=== PATIENT | male | born 1945 | race Caucasian/White ===

== ENCOUNTER 2017-10-08 07:14 | Observation (INO) | payer MEDICARE ==
[2017-10-08] VITALS (19 sets, daily range): BP systolic 113–146; BP diastolic 61–93; PULSE 79–109; RESP 16–22; TEMP 98.1–99.4; O2SAT 95–100
[~2017-10-08] VITALS: Ht 188 cm; Wt 71.6 kg
[~2017-10-08 07:14] MED LIST: CYCL5TAB PO; PRED20 PO
[2017-10-08] MEDS ORDERED: IBUPROFEN 600 MG TAB PO ONE (07:45)
[2017-10-08] MEDS ORDERED: SODIUM CHLOR 0.9% 1000 ML INJ 1,000 ML IV ONE (07:45)
[2017-10-08 08:27] LABS: AUTOMATED NEUTROPHIL # 16.1 TH/MM3 (1.8-7.7); BASOPHIL % 0.1 % (0.0-2.0); HEMATOCRIT 49.8 % (39.0-51.0); HEMOGLOBIN 17.1 GM/DL (13.0-17.0); LYMPH % 6.2 % (9.0-44.0); LYMPHOCYTE # 1.1 TH/MM3 (1.0-4.8); MEAN CORPUSCULAR HEMOGLOBIN 31.3 PG (27.0-34.0); MEAN CORPUSCULAR HGB CONC 34.3 % (32.0-36.0); MEAN PLATELET VOLUME 9.9 FL (7.0-11.0); MONO % 3.8 % (0.0-8.0); MONOCYTE # 0.7 TH/MM3 (0-0.9); NEUT % 89.9 % (16.0-70.0); PLATELET COUNT 271 TH/MM3 (150-450); RED BLOOD COUNT 5.47 MIL/MM3 (4.50-5.90); RED CELL DISTRIBUTION WIDTH 13.1 % (11.6-17.2); WHITE BLOOD COUNT 17.9 TH/MM3 (4.0-11.0)
--- NOTE | 2017-10-08 08:29 | PD ---
HPI Chief Complaint: Cold / Flu Symptoms Time Seen by Provider: 07:44 Travel History International Travel<30 days: No Contact w/Intl Traveler<30days: No Traveled to known affect area: No History of Present Illness HPI This is a 72-year-old male with history of hypertension, previous head and neck cancer, presents today with complaints of body aches. Patient also reported nausea vomiting diarrhea over the last 3 days. He denies any fevers, chills. He does report a productive cough with what he describes as "dark" phlegm. There is no blood in his vomit or stool. The patient reports generalized aches. There are no other complaints at the time of my examination. PFSH Past Medical History Cancer: Yes (THROAT/ NO TX AT THIS TIME) High Cholesterol: Yes Chemotherapy: Yes Musculoskeletal: Yes (NECK AND SHOULDER PAIN) Immunizations Current: No Thyroid Disease: Yes Past Surgical History Abdominal Surgery: Yes ( INGUINAL HERNIOPLASTY 2002) Other Surgery: Yes (THROAT CA HAND) Social History Alcohol Use: No Tobacco Use: Yes Substance Use: Yes (THC DAILY) Allergies-Medications (Allergen,Severity, Reaction): Coded Allergies: No Known Allergies (Verified Adverse Reaction, Unknown, 10/08/17) Reported Meds & Prescriptions Reported Meds & Active Scripts Active No Active Prescriptions or Reported Medications Review of Systems Except as stated in HPI: all other systems reviewed are Neg General / Constitutional: No: Fever, Chills HENT: No: Headaches, Lightheadedness Cardiovascular: No: Chest Pain or Discomfort, Palpitations Respiratory: Positive: Cough, No: Shortness of Breath (Dark phlegm.), Wheezing Gastrointestinal: Positive: Nausea, Vomiting, Diarrhea, No: Abdominal Pain ( Diarrhea has slowed down over last 24 hours), Hematemesis, Hematochezia Genitourinary: Positive: Decreased Urinary Output, No: Dysuria Musculoskeletal: Positive: Weakness (Generalized), No: Pain Neurologic: Positive: Weakness (Generalized), No: Dizziness, Headache Physical Exam Narrative GENERAL: Thin appearing male in no acute respiratory distress. SKIN: Focused skin assessment warm/dry. No skin tenting noticed. HEAD: Atraumatic. Normocephalic. EYES: Pupils equal and round. No scleral icterus. No injection or drainage. ENT: No nasal bleeding or discharge. Mucous membranes pink and dry. NECK: Trachea midline. No JVD. Supple. CARDIOVASCULAR: Sinus tachycardia with a rate of 110. No murmur appreciated. RESPIRATORY: No accessory muscle use. Clear to auscultation. Breath sounds equal bilaterally. GASTROINTESTINAL: Abdomen soft, non-tender, nondistended. MUSCULOSKELETAL: No obvious deformities. No clubbing. No cyanosis. No edema. NEUROLOGICAL: Awake and alert. No obvious cranial nerve deficits. Motor grossly within normal limits. Normal speech. PSYCHIATRIC: Appropriate mood and affect; insight and judgment normal. Data Data Last Documented VS Vital Signs Date Time Temp Pulse Resp B/P (MAP) Pulse Ox O2 Delivery O2 Flow Rate FiO2 10/08/17 09:30 16 10/08/17 08:06 98.1 101 98 Room Air 10/08/17 07:26 113/61 (78) Orders Orders Electrocardiogram (10/08/17 07:44) Complete Blood Count With Diff (10/08/17 07:44) Comprehensive Metabolic Panel (10/08/17 07:44) Ckmb (Isoenzyme) Profile (10/08/17 07:44) Troponin I (10/08/17 07:44) Urinalysis - C+S If Indicated (10/08/17 07:44) Chest, Pa & Lat (10/08/17 07:44) Iv Access Insert/Monitor (10/08/17 07:44) Ecg Monitoring (10/08/17 07:44) Oximetry (10/08/17 07:44) Sodium Chlor 0.9% 1000 Ml Inj (Ns 1000 M (10/08/17 07:45) Ibuprofen (Motrin) (10/08/17 07:45) Influenzae A/B Antigen (10/08/17 07:44) CKMB (10/08/17 07:45) CKMB% (10/08/17 07:45) Sodium Chlor 0.9% 1000 Ml Inj (Ns 1000 M (10/08/17 10:00) Admit Order (Ed Use Only) (10/08/17 09:52) Labs Laboratory Tests Test 10/08/17 07:45 10/08/17 09:30 White Blood Count 17.9 TH/MM3 Red Blood Count 5.47 MIL/MM3 Hemoglobin 17.1 GM/DL Hematocrit 49.8 % Mean Corpuscular Volume 91.0 FL Mean Corpuscular Hemoglobin 31.3 PG Mean Corpuscular Hemoglobin Concent 34.3 % Red Cell Distribution Width 13.1 % Platelet Count 271 TH/MM3 Mean Platelet Volume 9.9 FL Neutrophils (%) (Auto) 89.9 % Lymphocytes (%) (Auto) 6.2 % Monocytes (%) (Auto) 3.8 % Eosinophils (%) (Auto) 0.0 % Basophils (%) (Auto) 0.1 % Neutrophils # (Auto) 16.1 TH/MM3 Lymphocytes # (Auto) 1.1 TH/MM3 Monocytes # (Auto) 0.7 TH/MM3 Eosinophils # (Auto) 0.0 TH/MM3 Basophils # (Auto) 0.0 TH/MM3 CBC Comment DIFF FINAL Differential Comment Blood Urea Nitrogen 33 MG/DL Creatinine 1.32 MG/DL Random Glucose 128 MG/DL Total Protein 7.6 GM/DL Albumin 4.3 GM/DL Calcium Level 9.0 MG/DL Alkaline Phosphatase 93 U/L Aspartate Amino Transf (AST/SGOT) 20 U/L Alanine Aminotransferase (ALT/SGPT) 26 U/L Total Bilirubin 0.8 MG/DL Sodium Level 137 MEQ/L Potassium Level 3.9 MEQ/L Chloride Level 99 MEQ/L Carbon Dioxide Level 23.7 MEQ/L Anion Gap 14 MEQ/L Estimat Glomerular Filtration Rate 54 ML/MIN Total Creatine Kinase 243 U/L Creatine Kinase MB 5.2 NG/ML Troponin I LESS THAN 0.02 NG/ML Urine Color YELLOW Urine Turbidity HAZY Urine pH 6.0 Urine Specific [place] 1.022 Urine Protein 30 mg/dL Urine Glucose (UA) NEG mg/dL Urine Ketones 40 mg/dL Urine Occult Blood SMALL Urine Nitrite NEG Urine Bilirubin NEG Urine Urobilinogen LESS THAN 2.0 MG/DL Urine Leukocyte Esterase NEG Urine RBC 5 /hpf Urine WBC 2 /hpf Urine Hyaline Casts 23 /lpf Urine Mucus FEW /lpf Microscopic Urinalysis Comment CULT NOT INDICATED MDM Medical Decision Making Medical Screen Exam Complete: Yes Emergency Medical Condition: Yes Differential Diagnosis Viral syndrome versus influenza versus gastroenteritis versus metabolic derangement Narrative Course 72-year-old male with a reported history of hypertension who is noncompliant with medication, previous head and neck cancer, who presents today with complaints of general malaise. Patient reports nausea vomiting diarrhea. Patient states he has body aches all over. Reports not feeling well for 3 days. Patient is noted to have acute kidney injury. Patient also has frequent PVCs noted on his 12-lead. He has been given 1 L IV fluid bolus. He still feels bad. Given this, I will admit him to the hospital. There is a call out to the [facility] hospitalist service. Diagnosis Primary Impression: Acute kidney injury Additional Impressions: Sinus tach with frequent PVCs Tobacco abuse History of head and neck cancer Admitting Information Admitting Physician Requests: Admit Scripts No Active Prescriptions or Reported Meds Juancarlos North MD October 08, 2017 08:29
[2017-10-08 08:44] LABS: ALBUMIN 4.3 GM/DL (3.4-5.0); ALT (GPT) 26 U/L (12-78); AST (GOT) 20 U/L (15-37); BICARBONATE 23.7 MEQ/L (21.0-32.0); BLOOD UREA NITROGEN 33 MG/DL (7-18); CHLORIDE 99 MEQ/L (98-107); CREATININE 1.32 MG/DL (0.60-1.30); GLOMERULAR FILTRATION RATE 54 ML/MIN (>89); GLUCOSE,RANDOM 128 MG/DL (74-106); SODIUM (NA) 137 MEQ/L (136-145)
--- NOTE | 2017-10-08 08:44 | RADRPT ---
EXAM DATE: 10/08/2017 8:40 AM EDT AGE/SEX: 72 years / Male INDICATIONS: Cough x 1 week. CLINICAL DATA: This is the patient's initial encounter. Patient reports that signs and symptoms have been present for 1 day and indicates a pain score of 5/10. MEDICAL/SURGICAL HISTORY: None. None. COMPARISON: No prior [facility] exams available for comparison. FINDINGS: PA and lateral views of the chest demonstrate the lungs to be hyperaerated without evidence of mass, infiltrate or effusion. The cardiomediastinal contours are unremarkable. Osseous structures are intac t. CONCLUSION: Hyperinflation which can be seen with COPD. No infiltrate. Electronically signed by: Chuckie Barrios MD 10/08/2017 8:43 AM EDT
[2017-10-08 08:47] LABS: ALKALINE PHOSPHATASE 93 U/L (45-117); TOTAL BILIRUBIN ADULT 0.8 MG/DL (0.2-1.0); TOTAL PROTEIN 7.6 GM/DL (6.4-8.2); TROPONIN I LESS THAN 0.02 NG/ML (0.02-0.05)
[2017-10-08 09:46] LABS: BILIRUBIN, URINE NEG (NEG); BLOOD, URINE SMALL (NEG); GLUCOSE,URINE NEG (NEG); HYALINE CAST, URINE 23 /lpf (RARE); KETONE, URINE 40 mg/dL (NEG); MUCUS URINE FEW /lpf (OCC); NITRITE,URINE NEG (NEG); URINE COLOR YELLOW (YELLW/STRAW); URINE LEUKOCYTE ESTERASE NEG (NEG)
[2017-10-08] MEDS ORDERED: SODIUM CHLOR 0.9% 1000 ML INJ 1,000 ML IV SCH (10:00)
[2017-10-08] MEDS ORDERED: D5-1/2 NS + KCL 20 MEQ INJ 1,000 ML IV SCH (11:06)
[2017-10-08] MEDS ORDERED: NALOXONE HCL 0.4 MG/ML AMP IV PUSH PRN (11:15)
[2017-10-08] MEDS ORDERED: MAGNESIUM HYDROXIDE SUSP 30 ML CUP PO PRN (11:15)
[2017-10-08] MEDS ORDERED: ACETAMINOPHEN 325 MG TAB PO PRN (11:15)
[2017-10-08] MEDS ORDERED: ACETAMINOPHEN/HYDROcodone 325 MG/5 MG TAB PO PRN (11:15)
[2017-10-08] MEDS ORDERED: SENNOSIDES 8.6 MG TAB PO PRN (11:15)
[2017-10-08] MEDS ORDERED: MORPHINE SULFATE 2 MG/ML SYRINGE IV PUSH PRN (11:15)
[2017-10-08] MEDS ORDERED: ONDANSETRON ODT 4 MG TAB PO PRN (12:00)
[2017-10-08] MEDS: HEPARIN SODIUM - SQ 10,000 UNITS/ML VIAL SQ SCH ×2 (12:50→20:14)
[2017-10-08] MEDS: ACETAMINOPHEN/HYDROcodone 325 MG/7.5 MG TAB PO PRN (13:07)
[2017-10-08] MEDS: LEVOFLOXACIN 500 MG PREMIX INJ 100 ML IV SCH (14:35)
[2017-10-08] MEDS: POTASSIUM CHLORIDE INJ 10 MEQ in SODIUM CHLOR 0.9% 1000 ML INJ 1,000 ML IV SCH ×2 (14:35→23:33)
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
[2017-10-08] MEDS: DOCUSATE SODIUM 50 MG/SENNA 8.6 MG TAB PO SCH (20:16)
[2017-10-08] MEDS ORDERED: TEMAZEPAM 7.5 MG CAP PO ONE (23:15)
[2017-10-09] VITALS (18 sets, daily range): BP systolic 98–217; BP diastolic 67–128; PULSE 78–109; RESP 18–20; TEMP 98–98.7; O2SAT 95–98
[2017-10-09] MEDS: HEPARIN SODIUM - SQ 10,000 UNITS/ML VIAL SQ SCH ×2 (04:01→13:05)
[2017-10-09] MEDS: ACETAMINOPHEN/HYDROcodone 325 MG/7.5 MG TAB PO PRN (04:12)
[2017-10-09] MEDS ORDERED: MORPHINE SULFATE 4 MG/ML INJ IV PUSH PRN (04:30)
[2017-10-09] MEDS ORDERED: MORPHINE SULFATE 4 MG/ML INJ IV ONE (05:00)
[2017-10-09 06:50] LABS: BASOPHIL % 0.4 % (0.0-2.0); EOSINOPHIL % 0.2 % (0.0-4.0); HEMATOCRIT 48.1 % (39.0-51.0); HEMOGLOBIN 16.5 GM/DL (13.0-17.0); LYMPH % 10.6 % (9.0-44.0); LYMPHOCYTE # 1.2 TH/MM3 (1.0-4.8); MEAN CELL VOLUME 91.3 FL (80.0-100.0); MEAN CORPUSCULAR HEMOGLOBIN 31.3 PG (27.0-34.0); MEAN CORPUSCULAR HGB CONC 34.3 % (32.0-36.0); MEAN PLATELET VOLUME 9.6 FL (7.0-11.0); MONO % 6.8 % (0.0-8.0); MONOCYTE # 0.7 TH/MM3 (0-0.9); PLATELET COUNT 183 TH/MM3 (150-450); RED BLOOD COUNT 5.27 MIL/MM3 (4.50-5.90); RED CELL DISTRIBUTION WIDTH 13.2 % (11.6-17.2); WHITE BLOOD COUNT 10.9 TH/MM3 (4.0-11.0)
[2017-10-09] MEDS: POTASSIUM CHLORIDE INJ 10 MEQ in SODIUM CHLOR 0.9% 1000 ML INJ 1,000 ML IV SCH (07:17)
[2017-10-09 07:34] LABS: ALBUMIN 3.8 GM/DL (3.4-5.0); BICARBONATE 21.8 MEQ/L (21.0-32.0); CALCIUM 8.1 MG/DL (8.5-10.1); CREATININE 0.73 MG/DL (0.60-1.30); DIRECT BILIRUBIN ADULT 0.2 MG/DL (0.0-0.2); INDIRECT BILIRUBIN 0.8 MG/DL (0.0-0.8); TOTAL PROTEIN 6.8 GM/DL (6.4-8.2)
--- NOTE | 2017-10-09 08:28 | EKG ---
Date Performed: 10/08/2017 Time Performed: 08:32:23 PTAGE: 72 years EKG: Sinus rhythm WITH FREQUENT VENTRICULAR PREMATURE COMPLEXES POSSIBLE RIGHT ATRIAL ENLARGEMENT LEFT ATRIAL ENLARGEM ENT ABNORMAL ECG PREVIOUS TRACING : 12/07/2006 11.49 DOCTOR: John Al Interpretating Date/Time 10/09/2017 08:28:08
[2017-10-09] MEDS ORDERED: SODIUM CHLOR 0.9% 1000 ML INJ 1,000 ML IV SCH (08:30)
[2017-10-09] MEDS ORDERED: POTASSIUM CHLORIDE 25 MEQ EFFERVESCENT TAB PO ONE (08:30)
[2017-10-09] MEDS ORDERED: cloNIDine HCL 0.1 MG TAB PO PRN (08:45)
[2017-10-09] MEDS: DOCUSATE SODIUM 50 MG/SENNA 8.6 MG TAB PO SCH (08:53)
--- NOTE | 2017-10-09 08:55 | PD.CONS ---
HPI Consult Requested By Primary Care Physician Unknown History of Present Illness 72-year-old male history of cancer in the past presented for vomiting, cough, and body aches. Patient states that since Thursday he had been having vomiting, dry cough. Yesterday morning he was feeling very poorly with body aches and generalized malaise and decided to present to the ED. The patient was noted to be dehydrated (creatinine 1.32, improved to 0.73 today after IVF) and had associated sinus tachycardia which appears to have improved today on telemetry. The patient was also noted to have fairly frequent PVCs (appears to have 1 PVC every 4-6 beats on telemetry). The patient is feeling much better today. He states that he is normally very healthy and works out with weights daily. He denies any current or previous chest pain, shortness of breath, palpitations. He reports a history of high blood pressure for which he is not taking medication for. He also reports he drinks a lot of coffee. (Isiah Church) Consult Requested By PVCs benign consider low dose BB will sign off call with further questions (Theodore Knutson MD) Review of Systems Negative except as stated in the HPI (Isiah Church) Past Family Social History Allergies: Coded Allergies: No Known Allergies (Verified Allergy, Unknown, 10/08/17) Past Medical History History of cancer in the past Probable history of untreated hypertension Past Surgical History Abdominal Surgery: Yes ( INGUINAL HERNIOPLASTY 2002) Other Surgery: Yes (THROAT CA HAND) Reported Medications Reported Meds & Active Scripts Active No Active Prescriptions or Reported Medications Active Ordered Medications Current Medications Medications (Trade) Dose Ordered Sig/Ciara Route Start Time Stop Time Status Last Admin (Tylenol) 650 mg Q4H PRN PO 10/08/17 11:15 (Zofran Odt) 4 mg Q6H PRN PO 10/08/17 12:00 10/09/17 04:00 (Heparin Inj) 5,000 units Q8H SQ 10/08/17 13:00 10/09/17 04:01 ([place] 5-325 Mg) 1 tab Q4H PRN PO 10/08/17 11:15 ([place] 7.5-325 Mg) 1 tab Q4H PRN PO 10/08/17 11:15 10/09/17 04:12 (Narcan Inj) 0.4 mg UNSCH PRN IV PUSH 10/08/17 11:15 (Leisa-Colace) 1 tab BID PO 10/08/17 21:00 (Milk Of Magnesia Liq) 30 ml Q12H PRN PO 10/08/17 11:15 (Senokot) 17.2 mg Q12H PRN PO 10/08/17 11:15 Levofloxacin/ Dextrose 100 ml @ 100 mls/hr Q24H IV 10/08/17 13:00 10/08/17 14:35 (Morphine Inj) 2 mg Q4H PRN IV PUSH 10/09/17 04:30 10/09/17 04:24 Sodium Chloride 1,000 ml @ 125 mls/hr Q8H IV 10/09/17 08:30 (Catapres) 0.1 mg Q4H PRN PO 10/09/17 08:45 Family History Denies any family history of heart disease Social History Current tobacco and MJ use (Isiah Church) Physical Exam Vital Signs Vital Signs Date Time Temp Pulse Resp B/P (MAP) Pulse Ox O2 Delivery O2 Flow Rate FiO2 10/09/17 07:00 98.6 88 20 184/102 (129) 98 10/09/17 06:32 170/102 (124) 10/09/17 06:00 92 10/09/17 05:16 210/100 (136) 10/09/17 05:00 92 10/09/17 04:57 19 10/09/17 04:57 19 10/09/17 04:37 90 18 217/128 (157) 95 10/09/17 04:29 16 10/09/17 04:08 88 10/09/17 04:02 98.2 79 18 210/123 (152) 97 10/09/17 03:00 90 10/09/17 02:00 80 10/09/17 01:00 82 10/09/17 00:03 85 10/08/17 23:34 98.8 79 18 142/91 (108) 96 10/08/17 23:00 86 10/08/17 22:00 88 10/08/17 21:00 88 10/08/17 20:09 99.4 95 16 146/93 (110) 96 10/08/17 20:01 95 10/08/17 19:00 90 10/08/17 18:00 94 10/08/17 17:21 131/80 (97) 10/08/17 17:21 98.6 109 20 95 10/08/17 17:00 93 10/08/17 16:00 102 10/08/17 15:00 108 10/08/17 14:00 96 10/08/17 13:00 102 10/08/17 12:13 131/80 (97) 10/08/17 12:00 100 10/08/17 11:24 101 18 118/64 (82) 97 10/08/17 09:30 16 Physical Exam GENERAL: Well-developed well-nourished. In no acute distress. NECK: No carotid bruits. No JVD. CARDIOVASCULAR: Regular rate and irregular rhythm. No murmur appreciated. RESPIRATORY: No accessory muscle use. Clear to auscultation. Coarse breath sounds in the bases. MUSCULOSKELETAL: No clubbing or cyanosis. No edema. NEUROLOGICAL: Awake and alert. Normal speech. Laboratory Laboratory Tests Test 10/08/17 09:30 10/08/17 16:46 10/09/17 05:42 Urine Color YELLOW Urine Turbidity HAZY Urine pH 6.0 Urine Specific [place] 1.022 Urine Protein 30 Urine Glucose (UA) NEG Urine Ketones 40 Urine Occult Blood SMALL Urine Nitrite NEG Urine Bilirubin NEG Urine Urobilinogen LESS THAN 2.0 Urine Leukocyte Esterase NEG Urine RBC 5 Urine WBC 2 Urine Hyaline Casts 23 Urine Mucus FEW Microscopic Urinalysis Comment CULT NOT INDICATED Lactic Acid Level 1.0 Magnesium Level 1.9 White Blood Count 10.9 Red Blood Count 5.27 Hemoglobin 16.5 Hematocrit 48.1 Mean Corpuscular Volume 91.3 Mean Corpuscular Hemoglobin 31.3 Mean Corpuscular Hemoglobin Concent 34.3 Red Cell Distribution Width 13.2 Platelet Count 183 Mean Platelet Volume 9.6 Neutrophils (%) (Auto) 82.0 Lymphocytes (%) (Auto) 10.6 Monocytes (%) (Auto) 6.8 Eosinophils (%) (Auto) 0.2 Basophils (%) (Auto) 0.4 Neutrophils # (Auto) 9.0 Lymphocytes # (Auto) 1.2 Monocytes # (Auto) 0.7 Eosinophils # (Auto) 0.0 Basophils # (Auto) 0.0 CBC Comment DIFF FINAL Differential Comment Blood Urea Nitrogen 15 Creatinine 0.73 Random Glucose 104 Total Protein 6.8 Albumin 3.8 Calcium Level 8.1 Alkaline Phosphatase 89 Aspartate Amino Transf (AST/SGOT) 36 Alanine Aminotransferase (ALT/SGPT) 37 Total Bilirubin 1.0 Direct Bilirubin 0.2 Sodium Level 137 Potassium Level 3.5 Chloride Level 104 Carbon Dioxide Level 21.8 Anion Gap 11 Estimat Glomerular Filtration Rate 106 Indirect Bilirubin 0.8 Date/Time Source Procedure Growth Status 10/08/17 16:46 Blood Peripheral Aerobic Blood Culture Pending Received 10/08/17 16:46 Blood Peripheral Anaerobic Blood Culture Pending Received 10/08/17 08:00 Nasal Aspirate Influenza Types A,B Antigen ([facility]) - Final NEGATIVE FOR FLU A AND B ANTIGEN.... Complete (Isiah Church) Result Diagram: 10/09/17 0542 10/09/17 0542 Imaging Last Impressions Chest X-Ray 10/08/17 0744 Signed Impressions: CONCLUSION: Hyperinflation which can be seen with COPD. No infiltrate. (Isiah Church) Assessment and Plan Assessment and Plan 72-year-old male history of cancer in the past presented for vomiting, cough, and body aches Sinus tachycardia: Secondary to dehydration and CESAR, improved after IVF. Frequent PVCs: Asymptomatic. Decrease caffeine intake. Tobacco abuse: Patient counseled regarding cessation. (Isiah Church) Isiah Church Oct 09, 2017 08:55 Theodore Knutson MD Oct 09, 2017 12:31
[2017-10-09] MEDS: LEVOFLOXACIN 500 MG PREMIX INJ 100 ML IV SCH (13:04)
--- NOTE | 2017-10-09 15:44 | HHI.PR ---
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 In ED patient was found to have multiple PVCs and mostly dehydration with acute kidney injury. IV fluids started, patient denied chest pain fever palpitation however as mentioned above he reported very significant feeling of imbalance. Patient denied having nonintentional weight loss, reported occasional night sweats, patient smoke 1 pack per day for 30 years no alcohol positive marijuana he has a history of what he said blood cancer in his mother 6-1 PATIENTS BLOOD PRESSURE WAS QUITE ELEVATED TODAY MEDS ADJUSTED AND STARTED FOR PRN SINCE WAS VERY ELEVATED DW RN AND PT AM LABS MONITOR BLOOD PRESSURES IF STABLE DC OVER WEEKEND Objective Vitals Vital Signs Date Time Temp Pulse Resp B/P (MAP) Pulse Ox O2 Delivery O2 Flow Rate FiO2 10/09/17 15:00 98.7 82 20 98/67 (77) 97 10/09/17 11:00 98.0 78 20 121/73 (89) 98 10/09/17 10:00 88 10/09/17 09:00 98 10/09/17 08:00 86 10/09/17 07:00 90 10/09/17 07:00 98.6 88 20 184/102 (129) 98 10/09/17 06:32 170/102 (124) 10/09/17 06:00 92 10/09/17 05:16 210/100 (136) 10/09/17 05:00 92 10/09/17 04:57 19 10/09/17 04:57 19 10/09/17 04:37 90 18 217/128 (157) 95 10/09/17 04:29 16 10/09/17 04:08 88 10/09/17 04:02 98.2 79 18 210/123 (152) 97 10/09/17 03:00 90 10/09/17 02:00 80 10/09/17 01:00 82 10/09/17 00:03 85 10/08/17 23:34 98.8 79 18 142/91 (108) 96 10/08/17 23:00 86 10/08/17 22:00 88 10/08/17 21:00 88 10/08/17 20:09 99.4 95 16 146/93 (110) 96 10/08/17 20:01 95 10/08/17 19:00 90 10/08/17 18:00 94 10/08/17 17:21 131/80 (97) 10/08/17 17:21 98.6 109 20 95 10/08/17 17:00 93 10/08/17 16:00 102 I/O 10/08/17 10/08/17 10/08/17 10/09/17 10/09/17 10/09/17 07:00 15:00 23:00 07:00 15:00 23:00 Intake Total 1000 ml 240 ml 480 ml Output Total 250 ml 650 ml 900 ml Balance 1000 ml -10 ml -170 ml -900 ml Intake Oral 240 ml 480 ml IV Total 1000 ml Output Urine Total 250 ml 650 ml 900 ml # Voids 2 # Bowel Movements 2 Result Diagram: 10/09/17 0542 10/09/17 0542 Other Results Laboratory Tests Test 10/08/17 07:45 10/08/17 09:30 10/08/17 16:46 10/09/17 05:42 White Blood Count 17.9 TH/MM3 10.9 TH/MM3 Red Blood Count 5.47 MIL/MM3 5.27 MIL/MM3 Hemoglobin 17.1 GM/DL 16.5 GM/DL Hematocrit 49.8 % 48.1 % Mean Corpuscular Volume 91.0 FL 91.3 FL Mean Corpuscular Hemoglobin 31.3 PG 31.3 PG Mean Corpuscular Hemoglobin Concent 34.3 % 34.3 % Red Cell Distribution Width 13.1 % 13.2 % Platelet Count 271 TH/MM3 183 TH/MM3 Mean Platelet Volume 9.9 FL 9.6 FL Neutrophils (%) (Auto) 89.9 % 82.0 % Lymphocytes (%) (Auto) 6.2 % 10.6 % Monocytes (%) (Auto) 3.8 % 6.8 % Eosinophils (%) (Auto) 0.0 % 0.2 % Basophils (%) (Auto) 0.1 % 0.4 % Neutrophils # (Auto) 16.1 TH/MM3 9.0 TH/MM3 Lymphocytes # (Auto) 1.1 TH/MM3 1.2 TH/MM3 Monocytes # (Auto) 0.7 TH/MM3 0.7 TH/MM3 Eosinophils # (Auto) 0.0 TH/MM3 0.0 TH/MM3 Basophils # (Auto) 0.0 TH/MM3 0.0 TH/MM3 CBC Comment DIFF FINAL DIFF FINAL Differential Comment Blood Urea Nitrogen 33 MG/DL 15 MG/DL Creatinine 1.32 MG/DL 0.73 MG/DL Random Glucose 128 MG/DL 104 MG/DL Total Protein 7.6 GM/DL 6.8 GM/DL Albumin 4.3 GM/DL 3.8 GM/DL Calcium Level 9.0 MG/DL 8.1 MG/DL Alkaline Phosphatase 93 U/L 89 U/L Aspartate Amino Transf (AST/SGOT) 20 U/L 36 U/L Alanine Aminotransferase (ALT/SGPT) 26 U/L 37 U/L Total Bilirubin 0.8 MG/DL 1.0 MG/DL Sodium Level 137 MEQ/L 137 MEQ/L Potassium Level 3.9 MEQ/L 3.5 MEQ/L Chloride Level 99 MEQ/L 104 MEQ/L Carbon Dioxide Level 23.7 MEQ/L 21.8 MEQ/L Anion Gap 14 MEQ/L 11 MEQ/L Estimat Glomerular Filtration Rate 54 ML/MIN 106 ML/MIN Total Creatine Kinase 243 U/L Creatine Kinase MB 5.2 NG/ML Troponin I LESS THAN 0.02 NG/ML Urine Color YELLOW Urine Turbidity HAZY Urine pH 6.0 Urine Specific [place] 1.022 Urine Protein 30 mg/dL Urine Glucose (UA) NEG mg/dL Urine Ketones 40 mg/dL Urine Occult Blood SMALL Urine Nitrite NEG Urine Bilirubin NEG Urine Urobilinogen LESS THAN 2.0 MG/DL Urine Leukocyte Esterase NEG Urine RBC 5 /hpf Urine WBC 2 /hpf Urine Hyaline Casts 23 /lpf Urine Mucus FEW /lpf Microscopic Urinalysis Comment CULT NOT INDICATED Lactic Acid Level 1.0 mmol/L Magnesium Level 1.9 MG/DL Direct Bilirubin 0.2 MG/DL Indirect Bilirubin 0.8 MG/DL Imaging Last Impressions Chest X-Ray 10/08/17 0755 Signed Impressions: CONCLUSION: Hyperinflation which can be seen with COPD. No infiltrate. Objective Remarks GENERAL: This is a well-nourished, well-developed patient, in no apparent distress. SKIN: No rashes, warm and dry HEAD: Atraumatic. Normocephalic. EYES: Pupils equal round and reactive. Extraocular motions intact. No scleral icterus. ENT: Nose without bleeding, or drainage, Airway patent. NECK: Trachea midline. Supple TONGUE IS MIDLINE CARDIOVASCULAR: Regular rate and rhythm without murmurs, gallops, or rubs. RESPIRATORY: Fair air entry bilaterally. RHONCHI AT BL BASES GASTROINTESTINAL: Abdomen soft, non-tender, nondistended. Positive bowel sounds MUSCULOSKELETAL: Extremities without clubbing, cyanosis, or edema. Pedal pulses appreciated NEUROLOGICAL: Awake and alert. Moves all extremity. Normal speech.no focal neurological deficit INSIGHT AND JUDGEMENT ARE GOOD MOOD AND BEHAVIOR ARE APPROPRIATE Medications and IVs Current Medications Sodium Chloride 1,000 ml @ 999 mls/hr BOLUS ONCE IV Last administered on 10/08at 08:05; Start 10/08/17 at 07:45; Stop 10/08/17 at 08:45; Status DC Ibuprofen (Motrin) 600 mg ONCE ONCE PO Last administered on 10/08/17at 08:23; Start 10/08/17 at 07:45; Stop 10/08/17 at 07:54; Status DC Sodium Chloride 1,000 ml @ 125 mls/hr Q8H IV Last administered on 10/08/17at 10 :06; Start 10/08/17 at 10:00; Stop 10/08/17 at 11:53; Status DC Potassium Chloride/Dextrose/ Sod Cl 1,000 ml @ 100 mls/hr Q10H IV Last administered on 10/08/17at 12:43; Start 10/08/17 at 11:06; Stop 10/08/17 at 13:20 ; Status DC Acetaminophen (Tylenol) 650 mg Q4H PRN PO TEMP > 100.4; Start 10/08/17 at 11:15 Ondansetron HCl (Zofran Odt) 4 mg Q6H PRN PO NAUSEA OR VOMITING Last administered on 10/09/17at 04:00; Start 10/08/17 at 12:00 Heparin Sodium (Porcine) (Heparin Inj) 5,000 units Q8H SQ Last administered on 10/09/17at 13:05; Start 10/08/17 at 13:00 Acetaminophen/ Hydrocodone Bitart ([place] 5-325 Mg) 1 tab Q4H PRN PO PAIN SCALE 3 TO 5; Start 10/08/17 at 11:15 Acetaminophen/ Hydrocodone Bitart ([place] 7.5-325 Mg) 1 tab Q4H PRN PO PAIN SCALE 6 TO 10 Last administered on 10/09/17at 04:12; Start 10/08/17 at 11:15 Morphine Sulfate (Morphine Inj) 2 mg Q4H PRN IV PUSH BREAKTHROUGH PAIN; Start 10/08/17 at 11:15; Stop 10/09/17 at 04:17; Status DC Naloxone HCl (Narcan Inj) 0.4 mg UNSCH PRN IV PUSH SEE LABEL COMMENTS; Start at 11:15 Senna/Docusate Sodium (Leisa-Colace) 1 tab BID PO ; Start 10/08/17 at 21:00 Magnesium Hydroxide (Milk Of Magnesia Liq) 30 ml Q12H PRN PO Mild constipation ; Start 10/08/17 at 11:15 Sennosides (Senokot) 17.2 mg Q12H PRN PO Moderate constipation; Start 10/08/17 at 11:15 Levofloxacin/ Dextrose 100 ml @ 100 mls/hr Q24H IV Last administered on at 13:04; Start 10/08/17 at 13:00 Potassium Chloride 10 meq/ Sodium Chloride 1,005 ml @ 125 mls/hr Q8H3M IV Last administered on 10/09/17at 07:17; Start 10/08/17 at 15:00; Stop 10/09/17 at 08 :21; Status DC Temazepam (Restoril) 7.5 mg ONCE ONCE PO Last administered on 10/08/17at 23:32 ; Start 10/08/17 at 23:15; Stop 10/08/17 at 23:16; Status DC Morphine Sulfate (Morphine Inj) 2 mg Q4H PRN IV PUSH BREAKTHROUGH PAIN Last administered on 10/09/17at 04:24; Start 10/09/17 at 04:30 Morphine Sulfate (Morphine Inj) 2 mg NOW ONCE IV Last administered on at 04:52; Start 10/09/17 at 05:00; Stop 10/09/17 at 05:01; Status DC Sodium Chloride 1,000 ml @ 125 mls/hr Q8H IV ; Start 10/09/17 at 08:30 Potassium Bicarb/ Potassium Chloride (K-Lyte Cl Eff) 50 meq ONCE ONCE PO Last administered on 10/09/17at 08:53; Start 10/09/17 at 08:30; Stop 10/09/17 at 08: 31; Status DC Clonidine (Catapres) 0.1 mg Q4H PRN PO SYSTOLIC BLOOD PRESSURE>160 Last administered on 10/09/17at 08:53; Start 10/09/17 at 08:45 A/P Assessment and Plan 72 years old male with history of throat and tongue cancer status post treatment and surgery in 2007 presented with Severe fatigue and imbalance Cardiac telemetry reported multiple sinus tachycardia with significant PVCs CESAR Leukocytosis with left shift WBC 17 K rule out infection versus stress reaction versus dehydration History of throat and tongue cancer status post surgery and protocol treatment in 2007 DVT prophylaxis COPD NEB TREATMENTS AND STEROIDS AND ANTIBIOTICS, MUCINEX, SYMBICORT Plan: Admit to telemetry floor for observation Stat BMP mag and phosphorus with aggressive electrolyte replacement IV fluid with KCl generously Monitor BMP and CBC 2D echo Consult cardiology for further cardiac workup Start levofloxacin prophylactically DVT prophylaxis with heparin Discharge Planning AM LABS HOPEFULLY HOME OVERWEEKEND WATCH BLOOD PRESSURE AND RHYTHM Umberto Valiente DO Oct 09, 2017 15:44
[2017-10-09] MEDS ORDERED: RESP: ALBUTEROL 2.5 MG/IPRATROPIUM 0.5 MG NEB (PRN) NEB (15:45)
[2017-10-09] MEDS ORDERED: RESP: ALBUTEROL 2.5 MG/IPRATROPIUM 0.5 MG NEB (SCH) NEB (20:00)
[2017-10-09] MEDS ORDERED: BUDESONIDE-FORMOTEROL 160/4.5 MCG INHALER INH SCH (21:00)
[2017-10-09] MEDS ORDERED: guaiFENesin E.R. 600 MG TAB PO SCH (21:00)
[2017-10-09] MEDS ORDERED: predniSONE 20 MG TAB PO SCH (21:00)
--- NOTE | 2017-10-11 09:01 | PD.AMA ---
Against Medical Advice Note Diagnosis: (1) Elevated lipids (2) Tobacco abuse (3) History of malignant neoplasm of neck Discharge Disposition: Against Medical Advice Pt Condition on Discharge: Good Recommended Treatment Course follow up with pcp AMA Statement Patient Roscoe De Guzman has decided to leave the hospital against medical advice. This patient has the capacity to refuse care and understands the risks of leaving, including permanent disability and/or , and has had an opportunity to ask questions about his condition. The patient has been informed that he may return for care at any time, and follow up has been arranged/ advised. Umberto Valiente DO Oct 11, 2017 09:01
--- NOTE | 2017-10-11 09:03 | HHI.DS ---
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 In ED patient was found to have multiple PVCs and mostly dehydration with acute kidney injury. IV fluids started, patient denied chest pain fever palpitation however as mentioned above he reported very significant feeling of imbalance. Patient denied having nonintentional weight loss, reported occasional night sweats, patient smoke 1 pack per day for 30 years no alcohol positive marijuana he has a history of what he said blood cancer in his mother CBC/BMP: 10/09/17 0542 10/09/17 0542 Significant Findings Laboratory Tests Test 10/08/17 09:30 10/08/17 16:46 10/09/17 05:42 Urine Turbidity HAZY (CLEAR) Urine Protein 30 mg/dL (NEG-TRACE) Urine Ketones 40 mg/dL (NEG) Urine Occult Blood SMALL (NEG) Urine RBC 5 /hpf (0-3) Urine Mucus FEW /lpf (OCC) Neutrophils (%) (Auto) 82.0 % (16.0-70.0) Neutrophils # (Auto) 9.0 TH/MM3 (1.8-7.7) Calcium Level 8.1 MG/DL (8.5-10.1) Imaging Last Impressions Chest X-Ray 10/08/17 0744 Signed Impressions: CONCLUSION: Hyperinflation which can be seen with COPD. No infiltrate. PE at Discharge GENERAL: This is a well-nourished, well-developed patient, in no apparent distress. SKIN: No rashes, warm and dry HEAD: Atraumatic. Normocephalic. EYES: Pupils equal round and reactive. Extraocular motions intact. No scleral icterus. ENT: Nose without bleeding, or drainage, Airway patent. NECK: Trachea midline. Supple TONGUE IS MIDLINE CARDIOVASCULAR: Regular rate and rhythm without murmurs, gallops, or rubs. RESPIRATORY: Fair air entry bilaterally. RHONCHI AT BL BASES GASTROINTESTINAL: Abdomen soft, non-tender, nondistended. Positive bowel sounds MUSCULOSKELETAL: Extremities without clubbing, cyanosis, or edema. Pedal pulses appreciated NEUROLOGICAL: Awake and alert. Moves all extremity. 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 In ED patient was found to have multiple PVCs and mostly dehydration with acute kidney injury. IV fluids started, patient denied chest pain fever palpitation however as mentioned above he reported very significant feeling of imbalance. Patient denied having nonintentional weight loss, reported occasional night sweats, patient smoke 1 pack per day for 30 years no alcohol positive marijuana he has a history of what he said blood cancer in his mother 6-1 PATIENTS BLOOD PRESSURE WAS QUITE ELEVATED TODAY MEDS ADJUSTED AND STARTED FOR PRN SINCE WAS VERY ELEVATED DW RN AND PT AM LABS MONITOR BLOOD PRESSURES IF STABLE DC OVER WEEKEND PATIENT DECIDED TO GO AMA Pt Condition on Discharge: Good Discharge Disposition: Discharge Home (left ama) Discharge Time: <= 30 minutes Discharge Instructions DIET: Follow Instructions for: Heart Healthy Diet Speech Therapy-Diet Recommends: Regular Additional Diet Instructions: stop smoking and drinking and stop cocaine Activities you can perform: Regular-No Restrictions Medication Profile: No Active Prescriptions or Reported Meds Umberto Valiente DO Oct 11, 2017 09:03
== END 2017-10-09 19:19 | disposition left against medical advice (07) ==
LOC: NEPC 07:14 → INTOOBSV 09:55 → NEDA 09:55 → HCIS 11:53
PROVIDERS: ADMIT Family Medicine; ATTEND Family Medicine
DX: R53.83 Other fatigue (principal); N17.9 Acute kidney failure, unspecified; I49.3 Ventricular premature depolarization; E86.0 Dehydration; R00.0 Tachycardia, unspecified; R11.2 Nausea with vomiting, unspecified; R19.7 Diarrhea, unspecified; R05 Cough; I10 Essential (primary) hypertension; J44.9 Chronic obstructive pulmonary disease, unspecified; E78.00 Pure hypercholesterolemia, unspecified; E03.9 Hypothyroidism, unspecified; M54.2 Cervicalgia; M25.519 Pain in unspecified shoulder; F12.90 Cannabis use, unspecified, uncomplicated; F17.200 Nicotine dependence, unspecified, uncomplicated; Z91.14 Patient's other noncompliance with medication regimen; Z85.810 Personal history of malignant neoplasm of tongue; Z92.3 Personal history of irradiation
CPT/HCPCS: 71046; 80048; 80053; 80076; 81001; 82550; 82552; 82948; 83605; 83735; 84484; 85025; 87040; 87804; 93005; 96361; 96365; 96372; 96375; 96376; 97161; 97164; 97165; 99285; G0378; J1644; J1956; J2270; J3480; J7030; 96360

== ENCOUNTER 2018-04-20 02:40 | Inpatient (IN) ==
[2018-04-20] MEDS ORDERED: Sodium Chlor 0.9% Inj 500 ML IV.SIG ONE (02:57)
[2018-04-20 03:42] LABS: Baso % (Auto) 0.3 % (0.0-2.0); Hematocrit 51.7 % (39.0-51.0); Hemoglobin 17.8 gm/dL (13.0-17.0); INR 1.1 Ratio; Lymph % (Auto) 6.5 % (9.0-44.0); Mean Corpuscular HGB Conc 34.5 % (32.0-36.0); Mean Corpuscular Hemoglobin 32.6 pg (27.0-34.0); Mean Corpuscular Volume 94.4 fL (80.0-100.0); Mean Platelet Volume 10.3 fL (7.0-11.0); Mono # (Auto) 0.8 th/mm3 (0.0-0.9); Mono % (Auto) 5.2 % (0.0-8.0); Neut # (Auto) 13.9 th/mm3 (1.8-7.7); Platelet Count 243 th/mm3 (150-450); Prothrombin Time 11.5 sec (9.8-11.6); Red Blood Count 5.47 mil/mm3 (4.50-5.90); Red Cell Distribution Width 12.9 % (11.6-17.2); White Blood Count 15.8 th/mm3 (4.0-11.0)
[2018-04-20 03:49] LABS: Alanine Aminotransferase 34 U/L (12-78); Albumin 4.5 g/dL (3.4-5.0); Anion Gap 10 meq/L (5-15); Aspartate Aminotransferase 22 U/L (15-37); Blood Urea Nitrogen 25 mg/dL (7-18); Calcium 8.7 mg/dL (8.5-10.1); Carbon Dioxide 27.1 meq/L (21.0-32.0); Chloride 100 meq/L (98-107); Glomerular Filtration Rate 62 mL/min (>89); Glucose,Random 118 mg/dL (74-106); Lipase 109 U/L (73-393); Magnesium 2.3 mg/dL (1.5-2.5); Potassium 3.9 meq/L (3.5-5.1); Sodium 137 meq/L (136-145)
[2018-04-20 03:53] LABS: Alkaline Phosphatase 114 U/L (45-117); Creatine Kinase 277 U/L (39-308); Total Protein 8.2 g/dL (6.4-8.2)
--- NOTE | 2018-04-20 04:04 | ED ---
HPI General Chief complaint: Chest Pain Stated complaint: cardiac complaint Time Seen by Provider: 04/20/18 02:53 Source: patient Limitations: no limitations History of Present Illness HPI narrative: The patient is a 72 year old male who presents to the [facility] emergency department with a history of reportedly not feeling well since Thursday morning. He reports that he awoke with nausea and persistently vomited approximately 10 times. He reports that since then he continues to be nauseated without vomiting. He reports that he has generalized body aches and a lightheaded sensation. The patient reports that his symptoms are similar to when he was admitted to the hospital in September 2017. He is unsure what he was diagnosed with at that time. The patient at some point was also complaining of chest tightness, however he denies having any chest pain or tightness to me on my initial evaluation. The patient in route to this facility was noted to have multifocal PVCs. The patient was given a loading dose of lidocaine 70 mg IV and then 2 half doses of 35 mg IV higher to arrival. According to ambulance services the multifocal PVCs improved. The patient on arrival reports continued generalized weakness. The patient denies having a primary care physician. He denies being on any medications currently. The patient does however report a prior medical history of throat cancer status post surgical resection followed by chemotherapy and radiation therapy. On review of systems otherwise, the patient denies having any known recent fevers, cough, congestion , neck pain, shortness of breath, diarrhea, urinary symptoms, or focal neurologic symptoms. Related Data Home Medications Medication Instructions Recorded Confirmed No Known Home Medications 04/20/18 04/20/18 Allergies Allergy/AdvReac Type Severity Reaction Status Date / Time No Known Allergies Allergy Verified 04/20/18 02:45 Review of Systems ROS: all other systems reviewed are negative [facility] Medical History Medical History Cancer (Acute) Family History Family History Other Family history non-contributory Social History Social History Substance History: Active Abuse Smoking Status: Current every day smoker Tobacco Type: Cigarettes How Often Do You Have a Drink Containing Alcohol: Never Recent Travel in [facility] within the Last 8 Weeks: No Recent Out of Country Travel within the Last 8 Weeks: No Substance Abuse Detail Marijuana: Substance Use Status: Active Route Used Substance Abuse: Inhalation Immunization History Tetanus Immunization: Unsure Exam Const General: cooperative, no acute distress and well developed Nutritional Appearance: thin Orientation: alert, awake and oriented x3 HENMT Head: normocephalic and atraumatic Nose: no nasal discharge and no epistaxis Mouth: other (Tacky mucous membranes) Throat: posterior oropharynx normal and uvula midline Eyes Sclera: normal sclerae Pupils: PERRL Neck Neck: trachea midline and no JVD Resp Effort & Inspection: no use of accessory muscles Auscultation: clear to auscultation bilaterally Cardio Rate: tachycardic (Sinus tachycardia in the low 100s. No pulse deficits to the extremities on simultaneous auscultation and palpation of his radial artery) Rhythm: regular rhythm Heart Sounds: no murmurs GI Inspection: non-distended Palpation: soft, no hepatosplenomegaly and nontender Back/Spine/Pelvis Back: no CVA tenderness Skin General: dry skin (warm) Neuro General: alert, awake, oriented x3 and other (Grossly nonfocal.) Speech: speech normal Motor: no movement abnormalities noted Extrem General: normal to inspection, no clubbing, no cyanosis and no edema Psych Mood: congruent mood Affect: normal affect Judgment: judgment good Course Consultations Consultation #1: The patient's case including history, pertinent physical examination findings, and laboratory studies were discussed with Dr. Powell, the neurosurgeon. He requested that the patient be given mannitol 25 g IV x1. He will see the patient in consultation. Time: 05:18 Consultation #2: The patient's case including history, pertinent physical examination findings, and laboratory studies were discussed with Dr. Ashley, the project coordinator. It was agreed that the patient would be admitted to the project coordinator's service. Time: 05:29 Initial Documented Vital Signs Temperature 97.8 F 04/20/18 02:45 Pulse Rate 105 H 04/20/18 02:45 Respiratory Rate 20 04/20/18 02:45 Blood Pressure 193/114 H 04/20/18 02:45 Last Documented Vital Signs Temperature 98.7 F 04/20/18 16:00 Pulse Rate 93 H 04/20/18 16:04 Respiratory Rate 21 04/20/18 16:04 Blood Pressure 113/66 04/20/18 16:04 Pulse Oximetry 92 L 12/11/18 16:04 Critical Care Time Critical Care Time: Yes Total Critical Care Time: 37 Attestation: Aggregate critical care time was 37 minutes. Time to perform other separately billable procedures was not included in the critical care time. My time did not include minutes spent treating any other patients simultaneously or on activities that did not directly contribute to the patient's treatment. The services I provided to this patient were to treat and/or prevent clinically significant deterioration that could result in: Progression of neurologic disability, versus cardiovascular collapse from cardiac dysrhythmia, versus respiratory failure, versus I provided critical care services requiring my management, as noted below: Chart data review, documentation time, medication orders and management, vital sign assessments/reviewing monitor data, ordering and reviewing lab tests, ordering and interpreting/reviewing x-rays and diagnostic studies, care of the patient and discussion of the patient with the admitting physicians. Medical Decision Making MDM Narrative Medical decision making narrative: During the course of the patient's emergency department visit, the patient's history, examination, and differential diagnosis were reviewed with the patient. The patient was placed on a engine monitor with oximetry and frequent blood pressure monitoring. The patient had IV access obtained and blood work sent for analysis. A diagnostic evaluation was started regarding the patient's intractable nausea associated with generalized weakness, reported chest tightness sometime prior to arrival. The patient was initially provided aspirin 324 mg p.o. x1, Nitroglycerin sublingual x1, Zofran 4 mg IV, normal saline of 500 mL bolus x1. Labetalol was written to be administered for hypertension, however no labetalol is available at this facility. Shortly after this occurred, CT scan of the brain in this patient revealed a 9 mm rounded acute hemorrhage in the left cerebellar hemisphere without any mass-effect. The patient was placed on a Cardene drip with parameters to control patient's blood pressure to less than 150/90. A call was placed out to the patient neurosurgeon. I spoke to Dr. Powell regarding this patient's case. He requested that mannitol 25 g to be administered x1. The patient's case is discussed with the project coordinator, Dr. Ashley, who did agree to admit the patient to the intensive care unit for close monitoring. The patient's diagnostic studies were otherwise remarkable for a white count of 15.8, hemoglobin 17.8, platelets 243 with 88 neutrophils, INR 1.1, chemistry is remarkable for a BUN of 25, GFR of 62, glucose 118, CPK 277 troponin I less than 0.02, BNP within normal limits, lipase within normal limits. Chest x-ray revealed no evidence of acute cardiopulmonary disease, hyperlucency of the lungs suggesting possible emphysema. The patient's results were discussed with the patient, including the plan of care. I explained that further testing and/ or monitoring is indicated based on the patient's history, examination, and/ or laboratory findings. Therefore, I recommended admission for additional evaluation. The patient expressed understanding and was agreeable with this plan. The patient was admitted to the hospital in guarded condition and sent to a bed under the care of the project coordinator's service. Medical Screen Exam Complete: Yes Emergency Medical Condition: Yes Differential Diagnosis Differential Diagnosis: Hypertensive emergency, versus viral syndrome, versus electrolyte derangements, versus dehydration, versus acute coronary syndrome Medical Records Medical records reviewed: Yes I reviewed the patient's medical records. Lab Data Lab results reviewed: Yes I reviewed the patient's lab results. Result diagrams: 04/20/18 03:25 04/20/18 03:25 Lab Results 04/20/18 04/20/18 04/20/18 Range/Units 03:25 03:25 03:25 WBC 15.8 H (4.0-11.0) th/mm3 RBC 5.47 (4.50-5.90) mil/mm3 Hgb 17.8 H (13.0-17.0) gm/dL Hct 51.7 H (39.0-51.0) % MCV 94.4 (80.0-100.0) fL MCH 32.6 (27.0-34.0) pg MCHC 34.5 (32.0-36.0) % RDW 12.9 (11.6-17.2) % Plt Count 243 (150-450) th/mm3 MPV 10.3 (7.0-11.0) fL Neut % (Auto) 88.0 H (16.0-70.0) % Lymph % (Auto) 6.5 L (9.0-44.0) % Norman % (Auto) 5.2 (0.0-8.0) % Eos % (Auto) 0.0 (0.0-4.0) % Baso % (Auto) 0.3 (0.0-2.0) % Neut # (Auto) 13.9 H (1.8-7.7) th/mm3 Lymph # (Auto) 1.0 (1.0-4.8) th/mm3 Norman # (Auto) 0.8 (0.0-0.9) th/mm3 Eos # (Auto) 0.0 (0.0-0.4) th/mm3 Baso # (Auto) 0.0 (0.0-0.2) th/mm3 WBC Differential . Differential Comment Auto diff final PT (9.8-11.6) sec INR Ratio Sodium 137 (136-145) meq/L Potassium 3.9 (3.5-5.1) meq/L Chloride 100 (98-107) meq/L Carbon Dioxide 27.1 (21.0-32.0) meq/L Anion Gap 10 (5-15) meq/L BUN 25 H (7-18) mg/dL Creatinine 1.16 (0.60-1.30) mg/dL Estimated GFR 62 L (>89) mL/min POC Glucose (68-110) mg/dl Random Glucose 118 H (74-106) mg/dL Calcium 8.7 (8.5-10.1) mg/dL Magnesium 2.3 (1.5-2.5) mg/dL Total Bilirubin 0.9 (0.2-1.0) mg/dL AST 22 (15-37) U/L ALT 34 (12-78) U/L Alkaline Phosphatase 114 (45-117) U/L Total Creatine Kinase 277 (39-308) U/L CK-MB (CK-2) 8.0 H (0.5-3.6) ng/mL Troponin I Less than 0.02 L (0.02-0.05) ng/mL B-Natriuretic Peptide 78 (0-100) pg/mL Total Protein 8.2 (6.4-8.2) g/dL Albumin 4.5 (3.4-5.0) g/dL Triglycerides (42-150) mg/dL Cholesterol (120-200) mg/dL LDL Cholesterol, Calc (0-99) mg/dL HDL Cholesterol (40.0-60.0) mg/dL Cholesterol/HDL Ratio Ratio Lipase 109 (73-393) U/L Nasal Screen MRSA (PCR) (Negative) 04/20/18 04/20/18 04/20/18 Range/Units 03:25 03:25 06:50 WBC (4.0-11.0) th/mm3 RBC (4.50-5.90) mil/mm3 Hgb (13.0-17.0) gm/dL Hct (39.0-51.0) % MCV (80.0-100.0) fL MCH (27.0-34.0) pg MCHC (32.0-36.0) % RDW (11.6-17.2) % Plt Count (150-450) th/mm3 MPV (7.0-11.0) fL Neut % (Auto) (16.0-70.0) % Lymph % (Auto) (9.0-44.0) % Norman % (Auto) (0.0-8.0) % Eos % (Auto) (0.0-4.0) % Baso % (Auto) (0.0-2.0) % Neut # (Auto) (1.8-7.7) th/mm3 Lymph # (Auto) (1.0-4.8) th/mm3 Norman # (Auto) (0.0-0.9) th/mm3 Eos # (Auto) (0.0-0.4) th/mm3 Baso # (Auto) (0.0-0.2) th/mm3 WBC Differential Differential Comment PT 11.5 (9.8-11.6) sec INR 1.1 Ratio Sodium (136-145) meq/L Potassium (3.5-5.1) meq/L Chloride (98-107) meq/L Carbon Dioxide (21.0-32.0) meq/L Anion Gap (5-15) meq/L BUN (7-18) mg/dL Creatinine (0.60-1.30) mg/dL Estimated GFR (>89) mL/min POC Glucose (68-110) mg/dl Random Glucose (74-106) mg/dL Calcium (8.5-10.1) mg/dL Magnesium (1.5-2.5) mg/dL Total Bilirubin (0.2-1.0) mg/dL AST (15-37) U/L ALT (12-78) U/L Alkaline Phosphatase (45-117) U/L Total Creatine Kinase (39-308) U/L CK-MB (CK-2) (0.5-3.6) ng/mL Troponin I (0.02-0.05) ng/mL B-Natriuretic Peptide (0-100) pg/mL Total Protein (6.4-8.2) g/dL Albumin (3.4-5.0) g/dL Triglycerides 168 H (42-150) mg/dL Cholesterol 216 H (120-200) mg/dL LDL Cholesterol, Calc 136 H (0-99) mg/dL HDL Cholesterol 46.2 (40.0-60.0) mg/dL Cholesterol/HDL Ratio 4.67 Ratio Lipase (73-393) U/L Nasal Screen MRSA (PCR) Not detected (Negative) 04/20/18 04/20/18 Range/Units 13:56 17:58 WBC (4.0-11.0) th/mm3 RBC (4.50-5.90) mil/mm3 Hgb (13.0-17.0) gm/dL Hct (39.0-51.0) % MCV (80.0-100.0) fL MCH (27.0-34.0) pg MCHC (32.0-36.0) % RDW (11.6-17.2) % Plt Count (150-450) th/mm3 MPV (7.0-11.0) fL Neut % (Auto) (16.0-70.0) % Lymph % (Auto) (9.0-44.0) % Norman % (Auto) (0.0-8.0) % Eos % (Auto) (0.0-4.0) % Baso % (Auto) (0.0-2.0) % Neut # (Auto) (1.8-7.7) th/mm3 Lymph # (Auto) (1.0-4.8) th/mm3 Norman # (Auto) (0.0-0.9) th/mm3 Eos # (Auto) (0.0-0.4) th/mm3 Baso # (Auto) (0.0-0.2) th/mm3 WBC Differential Differential Comment PT (9.8-11.6) sec INR Ratio Sodium (136-145) meq/L Potassium (3.5-5.1) meq/L Chloride (98-107) meq/L Carbon Dioxide (21.0-32.0) meq/L Anion Gap (5-15) meq/L BUN (7-18) mg/dL Creatinine (0.60-1.30) mg/dL Estimated GFR (>89) mL/min POC Glucose 104 98 (68-110) mg/dl Random Glucose (74-106) mg/dL Calcium (8.5-10.1) mg/dL Magnesium (1.5-2.5) mg/dL Total Bilirubin (0.2-1.0) mg/dL AST (15-37) U/L ALT (12-78) U/L Alkaline Phosphatase (45-117) U/L Total Creatine Kinase (39-308) U/L CK-MB (CK-2) (0.5-3.6) ng/mL Troponin I (0.02-0.05) ng/mL B-Natriuretic Peptide (0-100) pg/mL Total Protein (6.4-8.2) g/dL Albumin (3.4-5.0) g/dL Triglycerides (42-150) mg/dL Cholesterol (120-200) mg/dL LDL Cholesterol, Calc (0-99) mg/dL HDL Cholesterol (40.0-60.0) mg/dL Cholesterol/HDL Ratio Ratio Lipase (73-393) U/L Nasal Screen MRSA (PCR) (Negative) Imaging Data Radiologist's impression: Head MRI 04/20/18 00:00 CONCLUSION: 1. Hyperdense lesion in the left cerebellum identified on CT does not have characteristic features of either acute or subacute hemorrhage. This may represent chronic hemorrhage which has developed calcification. There is no surrounding edema or mass effect. There is no evidence of associated infarct 2. 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 3. No evidence of acute infarct, mass effect or edema. Chest X-Ray 04/20/18 02:57 CONCLUSION: 1. Hyperlucency of the lungs suggesting possible emphysema. 2. No acute cardiopulmonary disease identified. Head CT 04/20/18 04:15 CONCLUSION: 1. 9 mm rounded acute hemorrhage in the left cerebellar hemisphere. No mass effect. 2. 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 . ECG Data Attestation: I personally reviewed and interpreted this ECG as follows: Interpretation: The patient had an EKG done on arrival. The patient's EKG reveals a sinus rhythm heart rate of 97, QRS duration 94 ms, QTC [address] segment elevation. Borderline right axis deviation is noted. Discharge Plan Discharge Disposition Patient Disposition: ED Admit(ED Internal Use Only) Discharge Order Discharge Orders: ED Use Only Admit Order (Routine); Ordered 04/20/18 Ordered By: Antoinette Arenas Discharge Details Diagnosis: Cerebellar hemorrhage Physicians Team ED Provider: Antoinette Arenas Primary Care Provider: Primary Care Michelle Scott Attending Provider: Randy Ashley Other Providers: Zia Powell ; Rosario Ponce ; Charbel Merlos Status ED Status: Left Department Discharge Information Discharge Date/Time: 04/20/18 06:52
--- NOTE | 2018-04-20 04:06 | XR ---
EXAM DATE: 04/20/2018 3:50 AM EST AGE/SEX: 72 years / Male INDICATIONS: Chest pain today. CLINICAL DATA: This is the patient's initial encounter. Patient reports that signs and symptoms have been present for 1 day and indicates a pain score of 3/10. MEDICAL/SURGICAL HISTORY: Carcinoma, tongue. Throat cancer. Non-responsive. COMPARISON: No prior exams available for comparison. FINDINGS: 2 AP views of the chest. Hyperlucency of the lungs, particularly at the right lung base suggesting em physema. Lungs are clear. No evidence of pleural effusion or pneumothorax. Cardiomediastinal silhouet te within normal limits. CONCLUSION: 1. Hyperlucency of the lungs suggesting possible emphysema. 2. No acute cardiopulmonary disease identified. Electronically signed by: Attila Harper MD 04/20/2018 4:05 AM EST
[2018-04-20] MEDS ORDERED: Labetalol HCl Inj 100 MG/20 ML Vial IV.PUSH ONE (04:15)
--- NOTE | 2018-04-20 05:08 | CT ---
EXAM DATE: 04/20/2018 4:59 AM EST AGE/SEX: 72 years / Male INDICATIONS: Weakness. CLINICAL DATA: This is the patient's initial encounter. Patient reports that signs and symptoms have been present for 1 day and indicates a pain score of 0/10. MEDICAL/SURGICAL HISTORY: . Throat cancer None. RADIATION DOSE: 39.53 CTDI (mGy) [place] [facility] [place]20[place]. . TECHNIQUE: CT of the head without contrast. Using automated exposure control and adjustment of the mA and/or kV according to patient size, radiation dose was kept as low as reasonably achievable to ob tain optimal diagnostic quality images. DICOM format image data is available electronically for revi ew and comparison. FINDINGS: Cerebrum: The ventricles are normal for age. No evidence of midline shift, mass lesion, hemorrhage or acute infarction. No extraaxial fluid collections are seen. Encephalomalacia of the right temporo parietal region indicating old insult. Posterior Fossa: 9 mm rounded hyperdensity in the left cerebellar hemisphere indicating acute infarc t. No evidence of mass effect. Extracranial: The visualized portion of the orbits is intact. Skull: The calvaria is intact. No evidence of skull fracture. CONCLUSION: 1. 9 mm rounded acute hemorrhage in the left cerebellar hemisphere. No mass effect. 2. 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 . Electronically signed by: Attila Harper MD 04/20/2018 5:06 AM EST
[2018-04-20] MEDS ORDERED: Magnesium Sulfate Inj 4 GM in Sodium Chlor 0.9% Inj 92 ML IV.SIG PRN (05:31)
[2018-04-20] MEDS ORDERED: Potassium Chloride 25 MEQ Effervescent Tablet PO PRN (05:31)
[2018-04-20] MEDS ORDERED: Acetaminophen 325 MG Tablet PO PRN (05:31)
[2018-04-20] MEDS ORDERED: Potassium Chlor 20 mEq Premix 20 MEQ/100 ML PIGGYBACK IV.SIG PRN ×2 (05:31)
[2018-04-20] MEDS ORDERED: Bisacodyl 10 MG Supp RECTAL PRN (05:31)
[2018-04-20] MEDS ORDERED: Magnesium Oxide 400 MG Tablet PO PRN (05:31)
[2018-04-20] MEDS ORDERED: Sodium Phosphate Inj 30 MMOL in Sodium Chlor 0.9% Inj 250 ML IV.SIG PRN (05:31)
[2018-04-20] MEDS ORDERED: Potassium Chlor 40 mEq Premix 40 MEQ/100 ML PIGGYBACK IV.SIG PRN ×2 (05:31)
[2018-04-20] MEDS ORDERED: Labetalol HCl Inj 100 MG/20 ML Vial IV.PUSH PRN (05:31)
[2018-04-20] MEDS ORDERED: Dextrose 50% in Water 50 ML Vial IV.PUSH PRN (05:31)
[2018-04-20] MEDS ORDERED: Potassium Phosphate Inj 30 MMOL in Sodium Chlor 0.9% Inj 250 ML IV.SIG PRN (05:31)
[2018-04-20] MEDS ORDERED: Potassium Phosphate 500 MG Soluble Tablet PO PRN ×2 (05:31)
[2018-04-20] MEDS ORDERED: Magnesium Sulfate Inj 2 GM in Sodium Chlor 0.9% Inj 96 ML IV.SIG PRN (05:31)
[2018-04-20] MEDS: niCARdipine Inj 25 MG in Sodium Chlor 0.9% Inj 240 ML IV.CONT PRN ×2 (05:37→09:51)
--- NOTE | 2018-04-20 05:43 | P.HPCC ---
History of Present Illness Service: Critical care medicine Primary Care Physician: No Primary Care Physician Chief Complaint: dizziness History of Present Illness: 72yM with onset of symptoms Thursday (04/18), 2 days prior to arrival at the ED. dizziness, nausea, vomiting, headache. found to have small left cerebellar intraparenchymal hemorrhage on CT scan. also per EMS, had multiple PVCs which improved with iv lidocaine. patient denies chest pain, sob, fever, chills, chest pain. denies const/diarrhea/abd pain. has remote prior history of TBI. remainder ROS negative. Review of Systems All other systems reviewed negative except as stated in HPI PMFSH - History History Provided By: Patient - Medical History Medical History: Medical History (Last Reviewed 04/20/18 @ 05:38 by Randy Ashley MD) Cancer - Family History Family History: Family History (Last Updated 04/20/18 @ 05:38 by Randy Ashley MD) Other Family history non-contributory - Social History I have reviewed the patient's Social History: Yes - Tobacco History Tobacco Use In Past 30 Days: Yes Smoking Status: Current every day smoker Tobacco Type: Cigarettes - Alcohol History How Often Do You Have a Drink Containing Alcohol: Never - Substance Use History Substance History: Active Abuse - Substance Use Type Marijuana Status: Active Route Used: Inhalation - Travel History Recent Travel in the [facility] [email or web address]] Within the Last 8 Weeks: No - Immunization History Tetanus Immunization: Unsure Medications and Allergies Active Medications: Active Medications Acetaminophen (Tylenol) 650 mg PO Q6H PRN PRN Reason: TEMPERATURE > 101 F Albuterol (Duoneb Neb (Prn)) 1 ampul NEB Q2HR NEB PRN PRN Reason: WHEEZING Bisacodyl (Dulcolax Supp) 10 mg RECTAL DAILY PRN PRN Reason: if no BM in last 24h Chlorhexidine Gluconate (Chlorhexidine 2% Cloth) 3 pack TOPICAL DAILY@0400 CONSTANTIN Stop: 04/26/18 03:59 Chlorhexidine Gluconate (Chlorhexidine 2% Cloth) 3 pack TOPICAL DAILY@0400 PRN PRN Reason: Extra cloth needed Stop: 04/26/18 03:59 Dextrose (D50w Vial) 50 ml IV.PUSH UNSCH PRN PRN Reason: PER HYPOGLYCEMIA PROTOCOL Famotidine (Pepcid) 20 mg PO BID CONSTANTIN Glucagon (Glucagon Inj) 1 mg OTHER PRN PRN PRN Reason: for Hypoglycemia Protocol Hydralazine HCl (Apresoline Inj) 10 mg IV.PUSH Q30M PRN PRN Reason: sbp > 160, dbp > 95 Nicardipine HCl 25 mg/ Sodium (Chloride) 250 mls @ 50 mls/hr IV.CONT TITRATE PRN; Protocol PRN Reason: Per Protocol Magnesium Sulfate 4 gm/ Sodium (Chloride) 100 mls @ 50 mls/hr IV.SIG UNSCH PRN PRN Reason: For Magnesium 0.9 - 1.1 mg/dL Magnesium Sulfate 2 gm/ Sodium (Chloride) 100 mls @ 50 mls/hr IV.SIG UNSCH PRN PRN Reason: For Magnesium 1.2 - 1.6 mg/dL Sodium Chloride (Ns Inj) 1,000 mls @ 84 mls/hr IV.CONT .[id number] CONSTANTIN Potassium Chloride (Kcl 40 Meq Premix Inj) 40 meq in 100 mls @ 25 mls/hr IV.SIG Q2H PRN PRN Reason: For Potassium 2.8 - 3.2 mEq/L Potassium Chloride (Kcl 40 Meq Premix Inj) 40 meq in 100 mls @ 25 mls/hr IV.SIG UNSCH PRN PRN Reason: For Potassium 3.3 - 3.5 mEq/L Potassium Chloride (Kcl 20 Meq Premix Inj) 20 meq in 100 mls @ 50 mls/hr IV.SIG Q2H PRN PRN Reason: For Potassium 2.8 - 3.2 mEq/L Potassium Phosphate 30 mmol/ (Sodium Chloride) 260 mls @ 42 mls/hr IV.SIG UNSCH PRN PRN Reason: SEE LABEL COMMENTS Sodium Phosphate 30 mmol/ (Sodium Chloride) 260 mls @ 42 mls/hr IV.SIG UNSCH PRN PRN Reason: For Phosphorus < 2.5 mg/dL Potassium Chloride (Kcl 20 Meq Premix Inj) 20 meq in 100 mls @ 50 mls/hr IV.SIG Q2H PRN PRN Reason: For Potassium 3.3 - 3.5 mEq/L Insulin Human Regular (Novolin R Correctional Sugar Inj) 0 units SQ Q6HR CONSTANTIN; Protocol Labetalol HCl (Trandate Inj) 10 mg IV.PUSH Q20M PRN PRN Reason: sbp > 160 or DBP > 95 Lactulose (Lactulose Liq) 30 ml PO BID CONSTANTIN Magnesium Oxide (Mag-Ox) 800 mg PO UNSCH PRN PRN Reason: For Magnesium 1.2 - 1.6 mg/dL Ondansetron HCl (Zofran Inj) 4 mg IV.PUSH Q6H PRN PRN Reason: NAUSEA OR VOMITING Polyethylene Glycol (Miralax) 17 gm PO BID [facility] Potassium Bicarb/Potassium Chloride (K-Lyte Cl Eff) 50 meq PO UNSCH PRN PRN Reason: For Potassium 3.3 - 3.5 mEq/L Potassium Phosphate (K-Phos Original) 2,000 mg PO Q4H PRN PRN Reason: Phosphorus Less Than 2.5 mg/dL Potassium Phosphate (K-Phos Original) 2,000 mg PO UNSCH PRN PRN Reason: SEE LABEL COMMENTS Senna/Docusate Sodium (Leisa-Colace) 1 tab PO BID [facility] Sodium Chloride (Ns Flush) 2 ml IV.FLUSH UNSCH PRN PRN Reason: FLUSH AFTER USING IV ACCESS Sodium Chloride (Ns Flush) 2 ml IV.FLUSH UNSCH PRN PRN Reason: FLUSH AFTER USING IV ACCESS Allergies Allergy/AdvReac Type Severity Reaction Status Date / Time No Known Allergies Allergy Verified 04/20/18 02:45 Home Medications Medication Instructions Recorded Confirmed Type No Known Home Medications 04/20/18 04/20/18 History Results - Labs CBC & Chem 7: 04/20/18 03:25 04/20/18 03:25 Labs: Short CBC 04/20/18 Range/Units 03:25 WBC 15.8 H (4.0-11.0) th/mm3 Hgb 17.8 H (13.0-17.0) gm/dL Hct 51.7 H (39.0-51.0) % Plt Count 243 (150-450) th/mm3 BMP 04/20/18 03:25 Sodium 137 Potassium 3.9 Chloride 100 Carbon Dioxide 27.1 BUN 25 H Creatinine 1.16 Calcium 8.7 Cardiac Enzymes 04/20/18 Range/Units 03:25 Total Creatine Kinase 277 (39-308) U/L CK-MB (CK-2) 8.0 H (0.5-3.6) ng/mL Troponin I Less than 0.02 L (0.02-0.05) ng/mL Liver Function 04/20/18 Range/Units 03:25 Total Bilirubin 0.9 (0.2-1.0) mg/dL AST 22 (15-37) U/L ALT 34 (12-78) U/L Alkaline Phosphatase 114 (45-117) U/L Albumin 4.5 (3.4-5.0) g/dL - Imaging Impressions Chest X-Ray 04/20/18 02:57 CONCLUSION: 1. Hyperlucency of the lungs suggesting possible emphysema. 2. No acute cardiopulmonary disease identified. Head CT 04/20/18 04:15 CONCLUSION: 1. 9 mm rounded acute hemorrhage in the left cerebellar hemisphere. No mass effect. 2. 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 . Exam Vital signs: Vital Signs 04/20/18 02:45 04/20/18 02:57 04/20/18 05:13 Temperature 36.6 C Pulse Rate 105 H 100 H Respiratory Rate 20 20 Blood Pressure 193/114 H 194/140 H Pulse Oximetry 98 Intake & Output 04/19/18 04/19/18 04/20/18 06:59 18:59 06:59 Intake Total 500 / 500 Balance 500 / 500 Weight 79.379 kg Intake: IV 500 / 500 NS Inj 500 ML @ Wide Open IV. 500 / 500 SIG BOLUS ONE Rx#:[id number] Narrative: GENERAL: elderly male, lying in bed HEENT: Normocephalic. Atraumatic. Pupils 3mm, equal, round, reactive, conjugate. Mucous membranes are moist NECK: Trachea is midline. There is no JVD. CHEST: equal chest rise. room air. CARDIOVASCULAR: slightly tachycardic rate of 103, regular rhythm. sinus. ABDOMEN: Soft, nontender, nondistended. No guarding. MUSCULOSKELETAL: Pulses 2+. No peripheral edema. NEUROLOGICAL: CN 2-12 grossly intact. [id number] intact. no gross evidence of ataxia. ANTHONY 5/5 in all 4 extremities. sensation grossly intact. gait not assessed. pupils as above. EOMI. Caprini VTE Risk Assessment Caprini VTE Risk Assessment: Moderate/High Risk (score >= 2) VTE Pharmacological Exception Reason: Intracranial lesions Caprini Risk Assessment Model: Point Value = 1 Point Value = 2 Point Value = 3 Point Value = 5 Age 41-60 Minor surgery BMI > 25 kg/m2 Swollen legs Varicose veins or History of unexplained or recurrent spontaneous Oral contraceptives or hormone replacement Sepsis (< 1 month) Serious lung disease, including pneumonia (< 1 month) Abnormal pulmonary function Acute myocardial infarction Congestive heart failure (< 1 month) History of inflammatory bowel disease Medical patient at bed rest Age 61-74 Arthroscopic surgery Major open surgery (> 45 min) Laparoscopic surgery (> 45 min) Malignancy Confined to bed (> 72 hours) Immobilizing plaster cast Central venous access Age >= 75 History of VTE Family history of VTE Factor V Leiden Prothrombin [id number] Lupus anticoagulant Anticardiolipin antibodies Elevated serum homocysteine Heparin-induced thrombocytopenia Other congenital or acquired thrombophilia Stroke (< 1 month) Elective arthroplasty Hip, pelvis, or leg fracture Acute spinal cord injury (< 1 month) Prophylaxis Regimen: Total Risk Factor Score Risk Level Prophylaxis Regimen 0-1 Low Early ambulation 2 Moderate Order ONE of the following: *Sequential Compression Device (SCD) *Heparin 5000 units SQ BID 3-4 Higher Order ONE of the following medications: *Heparin 5000 units SQ TID *Enoxaparin/Lovenox 40 mg SQ daily (WT < 150 kg, CrCl > 30 mL/min) *Enoxaparin/Lovenox 30 mg SQ daily (WT < 150 kg, CrCl > 10-29 mL/min) *Enoxaparin/Lovenox 30 mg SQ BID (WT < 150 kg, CrCl > 30 mL/min) AND/OR *Sequential Compression Device (SCD) 5 or more Highest Order ONE of the following medications: *Heparin 5000 units SQ TID (Preferred with Epidurals) *Enoxaparin/Lovenox 40 mg SQ daily (WT < 150 kg, CrCl > 30 mL/min) *Enoxaparin/Lovenox 30 mg SQ daily (WT < 150 kg, CrCl > 10-29 mL/min) *Enoxaparin/Lovenox 30 mg SQ BID (WT < 150 kg, CrCl > 30 mL/min) AND *Sequential Compression Device (SCD) Assessment and Plan - Assessment and Plan Plan: Assessment: 72yM with left cerebellar Intraparenchymal hemorrhage. ICH score of 1 suggests 13% mortality rate. Unclear if this is actually ischemic CVA with hemorrhagic conversion in the posterior fossa vs. primary IPH. Also could be hemorrhage into mass given circular nature of the bleed. will obtain MRI to better evaluate the lesion. hypertensive emergency requires iv anti- hypertensives. critically ill with new life-threatening brain bleed. Active Problems: Acute Left Cerebellar intraparenchymal hemorrhage Hypertensive emergency Plan: - admit to ICU - consult neurosurgery: Dr. Powell - Dr. Powell requests hyperosmolar therapy, though there is no current evidence of midline shift or edema in the cerebellum, and by clinical history, this may be at least 48h old. will await MRI evidence before further hyperosmolar therapy. - frequent neuro checks - nicardipine for goal sbp < 140 mmHg - prn labetalol, hydralazine iv - PT,OT,ST - repeat interval head CT in AM - hold pharmacologic dvt prophylaxis. - SCDs - pepcid for gi ppx - nursing bedside swallow eval and advance diet Critical care time: 34 minutes, exclusive of separately billable procedures.
[2018-04-20] MEDS ORDERED: Magnesium Sulfate Inj 2 GM in Sodium Chlor 0.9% Inj 96 ML IV.SIG ONE (06:00)
[2018-04-20 07:07] LABS: Chol/HDL Ratio 4.67 Ratio; HDL Cholesterol 46.2 mg/dL (40.0-60.0)
[2018-04-20] MEDS: Insulin NovoLIN Regular Correctional Sugar Inj SQ SCH ×3 (07:34→18:19)
--- NOTE | 2018-04-20 08:20 | ECG ---
Date Performed: 04/20/2018 Time Performed: 02:45:20 PTAGE: 72 years EKG: Sinus rhythm RIGHT ATRIAL ENLARGEMENT LEFT ATRIAL ENLARGEMENT BORDERLINE RIGHT AXIS DEVIATION LOW QRS VOLTAGE IN EXTREMITY LEADS ABNORMAL ECG PREVIOUS TRACING : 10/08/2017 08.32 DOCTOR: Theodore Knutson Interpretating Date/Time 04/20/2018 08:19:56
[2018-04-20] MEDS: Sod Chloride 0.9% Inj 1,000 ML IV.CONT SCH ×2 (08:22→18:19)
[2018-04-20] MEDS: Famotidine 20 MG Tablet PO SCH ×2 (08:23→20:18)
[2018-04-20] MEDS: Senna/Docusate Sodium 8.6/50 MG Tablet PO SCH ×2 (08:23→20:17)
[2018-04-20] MEDS: Polyethylene Glycol 3350 17 GM Packet PO SCH (08:23)
--- NOTE | 2018-04-20 12:14 | ECG ---
Date Performed: 04/20/2018 Time Performed: 10:22:00 PTAGE: 72 years EKG: Sinus tachycardia with PVC(s) with PAC(s). Possible right atrial abnormality ST junctional depression is nonspecific Borderline ECG PREVIOUS TRACING : 04/20/2018 02.45 DOCTOR: Theodore Knutson Interpretating Date/Time 04/20/2018 12:13:00
[2018-04-20] MEDS ORDERED: Gadobutrol PF 2 MMOL/2 ML Vial (for RAD) IV.SIG ONE (12:46)
--- NOTE | 2018-04-20 13:45 | MR ---
EXAM DATE: 04/20/2018 1:01 PM EST AGE/SEX: 72 years / Male INDICATIONS: CVA. CLINICAL DATA: This is the patient's subsequent encounter. Patient reports that signs and symptoms h ave been present for 2 days and indicates a pain score of 0/10. MEDICAL/SURGICAL HISTORY: Carcinoma, esophageal. Hypertension. . finger surgery, hernia COMPAR[place]: [facility] [place], 04/[place]. . TECHNIQUE: Multiplanar, multisequence examination of the brain was performed without and with 6 ml Ga davist (gadobutrol) contrast as a single exam dose. FINDINGS: Cerebrum: Right temporal encephalomalacia with volume loss and gliosis is identified. Cerebral hemis pheres are otherwise unremarkable. There are no characteristic findings of acute infarct or hemorrhag e. There is no evidence of mass effect or edema. White Matter: No significant signal abnormalities are seen in the white matter. Posterior Fossa: The hyperdense lesion identified in the left cerebellum on CT demonstrates mild hete rogeneous T2 hyperintensity, minimal T1 hyperintensity, no restricted diffusion and significant magne tic susceptibility. There is no surrounding edema or mass effect. Cerebellar structures are otherwise unremarkable. Diffusion Imaging: No focal areas of restricted diffusion are seen. No evidence of acute infarction . Extracranial: The visualized portions of the orbits and paranasal sinuses are unremarkable. Post Contrast: No abnormal areas of parenchymal or dural enhancement. No evidence of blood-brain ba rrier breakdown. CONCLUSION: 1. Hyperdense lesion in the left cerebellum identified on CT does not have characteristic features o f either acute or subacute hemorrhage. This may represent chronic hemorrhage which has developed calc ification. There is no surrounding edema or mass effect. There is no evidence of associated infarct 2. 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 3. No evidence of acute infarct, mass effect or edema. Electronically signed by: Prince Mena MD 04/20/2018 1:44 PM EST
[2018-04-20] MEDS: hydrALAZINE HCl Inj 20 MG/ML Vial IV.PUSH PRN (20:18)
--- NOTE | 2018-04-20 20:48 | ECHRPT ---
Indication: SHORTNESS OF BREATH CONCLUSIONS Wall thickness is normal. Normal left ventricular size. The left ventricular systolic function is normal with an estimated ejection fraction of 55%. Mild mitral valve regurgitation. The estimated pulmonary arterial pressure is 34 mmHg. BP: / HR: Rhythm: MEASUREMENTS (Male / Female) Normal Values Technical Quality: 2D ECHO LV Diastolic Diameter PLAX 3.7 cm 4.2 - 5.9 / 3.9 - 5.3 cm LV Systolic Diameter PLAX 3.2 cm IVS Diastolic Thickness 1.1 cm 0.6 - 1.0 / 0.6 - 0.9 cm LVPW Diastolic Thickness 1.1 cm 0.6 - 1.0 / 0.6 - 0.9 cm LV Relative Wall Thickness 0.6 RV Internal Dim ED PLAX 1.9 cm LVOT Diameter 1.4 cm Aortic Root Diameter 2.6 cm LV Ejection Fraction MOD 4C 52.1 % LV Ejection Fraction 4C AL 51.8 % DOPPLER AV Peak Velocity 185.0 cm/s AV Peak Gradient 13.7 mmHg LVOT Peak Velocity 97.7 cm/s LVOT Peak Gradient 3.8 mmHg AV Area Cont Eq pk 0.8 cm Mitral E Point Velocity 54.3 cm/s Mitral A Point Velocity 68.1 cm/s Mitral E to A Ratio 0.8 LV E' Lateral Velocity 7.0 cm/s Mitral E to LV E' Lateral Ratio 7.7 LV E' Septal Velocity 5.8 cm/s Mitral E to LV E' Septal Ratio 9.4 TR Peak Velocity 244.0 cm/s TR Peak Gradient 23.8 mmHg Right Atrial Pressure 10.0 mmHg Pulmonary Artery Systolic Pressu 33.8 mmHg Right Ventricular Systolic Press 33.8 mmHg PV Peak Velocity 155.0 cm/s PV Peak Gradient 9.6 mmHg FINDINGS LEFT VENTRICLE Wall thickness is normal. Normal left ventricular size. The left ventricular systolic function is normal with an estimated ejection fraction of 55%. RIGHT VENTRICLE Normal right ventricular size and systolic function. LEFT ATRIUM The left atrial size is normal. RIGHT ATRIUM The right atrial size is normal. ATRIAL SEPTUM Normal atrial septal thickness without atrial level shunting by limited color doppler interrogation. AORTA The aortic root and proximal ascending aorta are normal in size on limited imaging. MITRAL VALVE Mild mitral valve regurgitation. AORTIC VALVE Trileaflet aortic valve. No aortic valve stenosis or regurgitation. TRICUSPID VALVE The estimated pulmonary arterial pressure is 34 mmHg. PULMONARY VALVE No pulmonary valve regurgitation or stenosis. VESSELS The inferior vena cava is normal in size. PERICARDIUM No pericardial effusion. Norma Resendez MD, FACC (Electronically Signed) Final Date:20 April 2018 20:47
[2018-04-21] MEDS: Insulin NovoLIN Regular Correctional Sugar Inj SQ SCH ×4 (00:47→17:03)
[2018-04-21] MEDS: Polyethylene Glycol 3350 17 GM Packet PO SCH ×3 (00:47→21:13)
[2018-04-21] MEDS: Sod Chloride 0.9% Inj 1,000 ML IV.CONT SCH ×4 (01:23→16:47)
[2018-04-21] MEDS ORDERED: Chlorhexidine Gluconate 2% 1 Pack (2 Cloths) TOPICAL PRN (04:00)
[2018-04-21 04:42] LABS: Baso # (Auto) 0.1 th/mm3 (0.0-0.2); Baso % (Auto) 0.6 % (0.0-2.0); Eos % (Auto) 0.5 % (0.0-4.0); Hematocrit 43.4 % (39.0-51.0); Lymph # (Auto) 1.5 th/mm3 (1.0-4.8); Mean Corpuscular HGB Conc 34.7 % (32.0-36.0); Mean Corpuscular Hemoglobin 32.7 pg (27.0-34.0); Mean Corpuscular Volume 94.5 fL (80.0-100.0); Mean Platelet Volume 9.4 fL (7.0-11.0); Mono # (Auto) 0.8 th/mm3 (0.0-0.9); Mono % (Auto) 7.3 % (0.0-8.0); Neut # (Auto) 8.1 th/mm3 (1.8-7.7); Neut % (Auto) 77.6 % (16.0-70.0); Platelet Count 161 th/mm3 (150-450); Red Blood Count 4.59 mil/mm3 (4.50-5.90); White Blood Count 10.5 th/mm3 (4.0-11.0)
--- NOTE | 2018-04-21 04:44 | CT ---
EXAM DATE: 04/21/2018 4:35 AM EST AGE/SEX: 72 years / Male INDICATIONS: Altered mental status. CLINICAL DATA: This is the patient's initial encounter. Patient reports that signs and symptoms have been present for 1 day and indicates a pain score of 0/10. MEDICAL/SURGICAL HISTORY: . Carcinoma, esophageal. Hypertension. None. RADIATION DOSE: 38.29 CTDI (mGy) COMPARISON: [facility] – [place], [place] HEAD W & W/O CONTRAST, 04/20/2018. . TECHNIQUE: CT of the head without contrast. Using automated exposure control and adjustment of the mA and/or kV according to patient size, radiation dose was kept as low as reasonably achievable to ob tain optimal diagnostic quality images. DICOM format image data is available electronically for revi ew and comparison. FINDINGS: Rounded hyperdensity in the left cerebellar hemispheres unchanged. Right-sided temporal lobe encephal omalacia unchanged. No new evidence of intracranial hemorrhage or extra-axial fluid collection. Ventr icles within normal limits. No evidence of acute infarct. No mass effect or midline shift. CONCLUSION: 1. Rounded hyperdensity in the left cerebellar hemisphere unchanged. 2. Right temporal lobe encephalomalacia unchanged. . Electronically signed by: Attila Harper MD 04/21/2018 4:43 AM EST
[2018-04-21 05:14] LABS: Anion Gap 6 meq/L (5-15); Blood Urea Nitrogen 22 mg/dL (7-18); Calcium 7.7 mg/dL (8.5-10.1); Chloride 108 meq/L (98-107); Glomerular Filtration Rate Greater Than 89 mL/min (>89); Glucose,Random 93 mg/dL (74-106); Magnesium 2.4 mg/dL (1.5-2.5); Phosphorus 2.4 mg/dL (2.5-4.9); Potassium 3.8 meq/L (3.5-5.1); Sodium 142 meq/L (136-145)
[2018-04-21] MEDS: Chlorhexidine Gluconate 2% 1 Pack (2 Cloths) TOPICAL SCH (05:55)
[2018-04-21] MEDS: hydrALAZINE HCl Inj 20 MG/ML Vial IV.PUSH PRN (06:53)
[2018-04-21] MEDS: Famotidine 20 MG Tablet PO SCH ×2 (08:01→21:13)
[2018-04-21] MEDS: Senna/Docusate Sodium 8.6/50 MG Tablet PO SCH ×2 (08:01→21:13)
[2018-04-21] MEDS ORDERED: Sodium Glycerophosphate Inj 30 MMOL in Sodium Chlor 0.9% Inj 250 ML IV.SIG SCH (08:45)
--- NOTE | 2018-04-21 13:00 | MR ---
EXAM DATE: 04/21/2018 12:32 PM EST AGE/SEX: 72 years / Male INDICATIONS: CVA. CLINICAL DATA: This is the patient's subsequent encounter. Patient reports that signs and symptoms h ave been present for 2 days and indicates a pain score of 0/10. MEDICAL/SURGICAL HISTORY: Hypertension. throat cancer . hernia, finger surgery [place] [facility]. . TECHNIQUE: 3D [id number] MRA was performed. Source images, multiplanar STS MIP, and 3D volum e MIP reconstructions were reviewed. FINDINGS: There is excellent visualization of the major intracranial arteries out to the second-order branch ve ssels. There is no evidence for aneurysm, vessel truncation or stenosis, and no evidence for vascula r malformation. CONCLUSION: 1. Negative for major branch vessel occlusion. 2. 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 Electronically signed by: Umberto Cummins MD 04/21/2018 12:59 PM EST
--- NOTE | 2018-04-21 13:03 | P.PNNS ---
Subjective Interval history: denies neuro complaints, reports the reason he called EMS was due to feeling ill , possibly dehydration, and cramping of his legs. Physical Exam Vital signs: Vital Signs 04/20/18 13:02 04/20/18 13:14 04/20/18 13:34 Temperature Pulse Rate 99 H Respiratory Rate 13 Blood Pressure 109/65 89/53 L Pulse Oximetry 98 97 99 04/20/18 13:51 04/20/18 14:00 04/20/18 14:04 Temperature Pulse Rate 96 H 102 H 105 H Respiratory Rate 21 25 H 22 Blood Pressure 108/71 132/64 Pulse Oximetry 97 95 96 04/20/18 14:19 04/20/18 14:34 04/20/18 15:00 Temperature Pulse Rate 99 H 93 H 109 H Respiratory Rate 19 20 26 H Blood Pressure 145/70 H 154/88 H Pulse Oximetry 95 96 95 04/20/18 15:04 04/20/18 15:19 04/20/18 15:34 Temperature Pulse Rate 104 H 96 H 90 Respiratory Rate 42 H 20 20 Blood Pressure 117/69 107/61 115/64 Pulse Oximetry 96 95 95 04/20/18 15:49 04/20/18 16:00 04/20/18 16:04 Temperature 98.7 F Pulse Rate 92 H 95 H 93 H Respiratory Rate 20 21 21 Blood Pressure 109/62 113/66 Pulse Oximetry 91 L 92 L 92 L 04/20/18 16:39 04/20/18 17:00 04/20/18 17:09 Temperature Pulse Rate 92 H 92 H 91 H Respiratory Rate 33 H 29 H 25 H Blood Pressure 117/72 134/78 Pulse Oximetry 93 L 93 L 94 L 04/20/18 17:39 04/20/18 18:00 04/20/18 18:09 Temperature Pulse Rate 92 H 92 H 93 H Respiratory Rate 42 H 23 21 Blood Pressure 123/76 118/75 Pulse Oximetry 95 95 95 04/20/18 18:39 04/20/18 19:00 04/20/18 19:09 Temperature Pulse Rate 93 H 98 H 97 H Respiratory Rate 22 19 23 Blood Pressure 131/74 159/87 H Pulse Oximetry 94 L 94 L 94 L 04/20/18 20:00 04/20/18 20:09 04/20/18 21:00 Temperature 98.6 F Pulse Rate 94 H 94 H 107 H Respiratory Rate 20 19 22 Blood Pressure 167/80 H Pulse Oximetry 95 95 88 L 04/20/18 21:09 04/20/18 21:15 04/20/18 21:39 Temperature Pulse Rate 104 H Respiratory Rate 23 Blood Pressure 122/74 106/68 Pulse Oximetry 88 L 96 04/20/18 22:00 04/20/18 22:09 04/20/18 22:39 Temperature Pulse Rate 93 H 94 H 91 H Respiratory Rate 18 22 20 Blood Pressure 117/68 113/71 Pulse Oximetry 94 L 97 96 04/20/18 23:00 04/20/18 23:09 04/20/18 23:39 Temperature Pulse Rate 96 H 70 84 Respiratory Rate 23 19 20 Blood Pressure 105/58 L 117/63 Pulse Oximetry 96 98 98 04/21/18 00:00 04/21/18 00:09 04/21/18 00:39 Temperature 98.4 F Pulse Rate 80 87 89 Respiratory Rate 20 18 19 Blood Pressure 125/60 126/75 Pulse Oximetry 98 99 98 04/21/18 01:00 04/21/18 01:09 04/21/18 01:39 Temperature Pulse Rate 85 84 85 Respiratory Rate 20 20 20 Blood Pressure 120/74 144/81 H Pulse Oximetry 97 97 96 04/21/18 02:00 04/21/18 02:09 04/21/18 02:39 Temperature Pulse Rate 84 82 76 Respiratory Rate 21 20 17 Blood Pressure 126/71 128/72 Pulse Oximetry 98 98 98 04/21/18 03:00 04/21/18 03:09 04/21/18 03:39 Temperature Pulse Rate 79 78 78 Respiratory Rate 18 19 18 Blood Pressure 116/73 Pulse Oximetry 99 99 99 04/21/18 04:00 04/21/18 04:09 04/21/18 04:39 Temperature Pulse Rate 86 80 83 Respiratory Rate 21 19 19 Blood Pressure 123/80 Pulse Oximetry 98 97 95 04/21/18 05:00 04/21/18 05:09 04/21/18 06:00 Temperature Pulse Rate 75 75 74 Respiratory Rate 19 21 19 Blood Pressure 132/80 Pulse Oximetry 95 96 97 04/21/18 06:09 04/21/18 07:00 04/21/18 07:09 Temperature Pulse Rate 85 83 86 Respiratory Rate 16 20 22 Blood Pressure 131/83 130/72 Pulse Oximetry 99 96 96 04/21/18 07:39 04/21/18 08:00 04/21/18 08:09 Temperature 98.2 F Pulse Rate 87 86 83 Respiratory Rate 21 20 19 Blood Pressure 121/73 138/68 Pulse Oximetry 95 95 94 L 04/21/18 08:39 04/21/18 09:00 04/21/18 09:09 Temperature Pulse Rate 90 96 H 99 H Respiratory Rate 20 21 20 Blood Pressure 135/77 125/82 Pulse Oximetry 95 95 93 L 04/21/18 09:39 04/21/18 10:00 04/21/18 10:09 Temperature Pulse Rate 93 H 91 H 92 H Respiratory Rate 22 21 21 Blood Pressure 137/97 H 106/56 L Pulse Oximetry 92 L 95 95 04/21/18 10:39 04/21/18 11:00 04/21/18 11:09 Temperature Pulse Rate 100 H 90 94 H Respiratory Rate 20 26 H 27 H Blood Pressure 151/85 H 119/60 Pulse Oximetry 95 95 95 04/21/18 11:39 Temperature Pulse Rate 92 H Respiratory Rate 24 Blood Pressure 123/69 Pulse Oximetry 94 L Intake & Output 04/20/18 04/21/18 04/21/18 18:59 06:59 18:59 Intake Total 950 / 950 1000 / 1000 1000 / 1000 Output Total 750 / 750 Balance 200 / 200 1000 / 1000 1000 / 1000 Weight 68.1 kg 71.4 kg Intake: IV 450 / 450 1000 / 1000 1000 / 1000 NS Inj 1,000 ML @ 84 mls/hr IV. 1000 / 1000 1000 / 1000 CONT .[id number] [facility] Rx#:[id number] Cardene Inj 25 MG In NS Inj 240 250 / 250 ML @ 5 MG/HR 50 mls/hr IV.CONT TITRATE PRN Rx#:[id number] Magnesium Sulfate Inj 2 GM In 100 / 100 NS Inj 96 ML @ 50 mls/hr IV.SIG ONCE ONE Rx#:[id number] KCl 20 mEq Premix Inj 20 meq In 100 / 100 100 ml @ 50 mls/hr IV.SIG Q2H PRN Rx#:[id number] Oral 500 / 500 Output: Urine 750 / 750 Other: # Voids 4 Date of Last Bowel Movement 04/19/18 04/19/18 04/19/18 # Bowel Movements 0 Weight On Admission 68.1 kg Narrative: awake, alert CN II-IX grossly intact moves both upper and lower extremities with good strength neck soft supple Assessment and Plan - Plan 72 y/o male left cerebellar round mass MRI Brain w/wo contrast reports chronic calcification from prior hemorrhage Dr. Powell recommends MRA Head to rule out venous malformation nonsurgical management of cerebellar mass cont medical management
--- NOTE | 2018-04-21 13:07 | P.PNIM ---
Subjective Interval history: Patient combines of a cough today. He does not have any other complaints. No headache, no dizziness. Physical Exam Vital signs: Vital Signs 04/20/18 13:02 04/20/18 13:14 04/20/18 13:34 Temperature Pulse Rate 99 H Respiratory Rate 13 Blood Pressure 109/65 89/53 L Pulse Oximetry 98 97 99 04/20/18 13:51 04/20/18 14:00 04/20/18 14:04 Temperature Pulse Rate 96 H 102 H 105 H Respiratory Rate 21 25 H 22 Blood Pressure 108/71 132/64 Pulse Oximetry 97 95 96 04/20/18 14:19 04/20/18 14:34 04/20/18 15:00 Temperature Pulse Rate 99 H 93 H 109 H Respiratory Rate 19 20 26 H Blood Pressure 145/70 H 154/88 H Pulse Oximetry 95 96 95 04/20/18 15:04 04/20/18 15:19 04/20/18 15:34 Temperature Pulse Rate 104 H 96 H 90 Respiratory Rate 42 H 20 20 Blood Pressure 117/69 107/61 115/64 Pulse Oximetry 96 95 95 04/20/18 15:49 04/20/18 16:00 04/20/18 16:04 Temperature 98.7 F Pulse Rate 92 H 95 H 93 H Respiratory Rate 20 21 21 Blood Pressure 109/62 113/66 Pulse Oximetry 91 L 92 L 92 L 04/20/18 16:39 04/20/18 17:00 04/20/18 17:09 Temperature Pulse Rate 92 H 92 H 91 H Respiratory Rate 33 H 29 H 25 H Blood Pressure 117/72 134/78 Pulse Oximetry 93 L 93 L 94 L 04/20/18 17:39 04/20/18 18:00 04/20/18 18:09 Temperature Pulse Rate 92 H 92 H 93 H Respiratory Rate 42 H 23 21 Blood Pressure 123/76 118/75 Pulse Oximetry 95 95 95 04/20/18 18:39 04/20/18 19:00 04/20/18 19:09 Temperature Pulse Rate 93 H 98 H 97 H Respiratory Rate 22 19 23 Blood Pressure 131/74 159/87 H Pulse Oximetry 94 L 94 L 94 L 04/20/18 20:00 04/20/18 20:09 04/20/18 21:00 Temperature 98.6 F Pulse Rate 94 H 94 H 107 H Respiratory Rate 20 19 22 Blood Pressure 167/80 H Pulse Oximetry 95 95 88 L 04/20/18 21:09 04/20/18 21:15 04/20/18 21:39 Temperature Pulse Rate 104 H Respiratory Rate 23 Blood Pressure 122/74 106/68 Pulse Oximetry 88 L 96 04/20/18 22:00 04/20/18 22:09 04/20/18 22:39 Temperature Pulse Rate 93 H 94 H 91 H Respiratory Rate 18 22 20 Blood Pressure 117/68 113/71 Pulse Oximetry 94 L 97 96 04/20/18 23:00 04/20/18 23:09 04/20/18 23:39 Temperature Pulse Rate 96 H 70 84 Respiratory Rate 23 19 20 Blood Pressure 105/58 L 117/63 Pulse Oximetry 96 98 98 04/21/18 00:00 04/21/18 00:09 04/21/18 00:39 Temperature 98.4 F Pulse Rate 80 87 89 Respiratory Rate 20 18 19 Blood Pressure 125/60 126/75 Pulse Oximetry 98 99 98 04/21/18 01:00 04/21/18 01:09 04/21/18 01:39 Temperature Pulse Rate 85 84 85 Respiratory Rate 20 20 20 Blood Pressure 120/74 144/81 H Pulse Oximetry 97 97 96 04/21/18 02:00 04/21/18 02:09 04/21/18 02:39 Temperature Pulse Rate 84 82 76 Respiratory Rate 21 20 17 Blood Pressure 126/71 128/72 Pulse Oximetry 98 98 98 04/21/18 03:00 04/21/18 03:09 04/21/18 03:39 Temperature Pulse Rate 79 78 78 Respiratory Rate 18 19 18 Blood Pressure 116/73 Pulse Oximetry 99 99 99 04/21/18 04:00 04/21/18 04:09 04/21/18 04:39 Temperature Pulse Rate 86 80 83 Respiratory Rate 21 19 19 Blood Pressure 123/80 Pulse Oximetry 98 97 95 04/21/18 05:00 04/21/18 05:09 04/21/18 06:00 Temperature Pulse Rate 75 75 74 Respiratory Rate 19 21 19 Blood Pressure 132/80 Pulse Oximetry 95 96 97 04/21/18 06:09 04/21/18 07:00 04/21/18 07:09 Temperature Pulse Rate 85 83 86 Respiratory Rate 16 20 22 Blood Pressure 131/83 130/72 Pulse Oximetry 99 96 96 04/21/18 07:39 04/21/18 08:00 04/21/18 08:09 Temperature 98.2 F Pulse Rate 87 86 83 Respiratory Rate 21 20 19 Blood Pressure 121/73 138/68 Pulse Oximetry 95 95 94 L 04/21/18 08:39 04/21/18 09:00 04/21/18 09:09 Temperature Pulse Rate 90 96 H 99 H Respiratory Rate 20 21 20 Blood Pressure 135/77 125/82 Pulse Oximetry 95 95 93 L 04/21/18 09:39 04/21/18 10:00 04/21/18 10:09 Temperature Pulse Rate 93 H 91 H 92 H Respiratory Rate 22 21 21 Blood Pressure 137/97 H 106/56 L Pulse Oximetry 92 L 95 95 04/21/18 10:39 04/21/18 11:00 04/21/18 11:09 Temperature Pulse Rate 100 H 90 94 H Respiratory Rate 20 26 H 27 H Blood Pressure 151/85 H 119/60 Pulse Oximetry 95 95 95 04/21/18 11:39 Temperature Pulse Rate 92 H Respiratory Rate 24 Blood Pressure 123/69 Pulse Oximetry 94 L Intake & Output 04/20/18 04/21/18 04/21/18 18:59 06:59 18:59 Intake Total 950 / 950 1000 / 1000 Output Total 750 / 750 Balance 200 / 200 1000 / 1000 Weight 68.1 kg 71.4 kg Intake: IV 450 / 450 1000 / 1000 NS Inj 1,000 ML @ 84 mls/hr IV. 1000 / 1000 CONT .[id number] [facility] Rx#:[id number] Cardene Inj 25 MG In NS Inj 240 250 / 250 ML @ 5 MG/HR 50 mls/hr IV.CONT TITRATE PRN Rx#:[id number] Magnesium Sulfate Inj 2 GM In 100 / 100 NS Inj 96 ML @ 50 mls/hr IV.SIG ONCE ONE Rx#:[id number] KCl 20 mEq Premix Inj 20 meq In 100 / 100 100 ml @ 50 mls/hr IV.SIG Q2H PRN Rx#:[id number] Oral 500 / 500 Output: Urine 750 / 750 Other: # Voids 4 Date of Last Bowel Movement 04/19/18 04/19/18 04/19/18 # Bowel Movements 0 Weight On Admission 68.1 kg Narrative: General patient complains of a cough HEENT extraocular movements are intact, clear oropharyngeal mucosa, no JVD Cardiovascular S1-S2 audible, RRR, no murmurs rubs or gallops Respiratory minimal wheezing auscultated bilaterally Abdomen soft, nontender, nondistended, normal bowel sounds Extremities no edema 2+ distal pulses in bilateral upper and lower extremities Neuro no focal neurological deficits. The patient moves all 4 extremities, sensation is intact bilaterally. Cerebellar signs are intact. Results - Labs CBC & Chem 7: 04/21/18 04:03 04/21/18 04:20 Laboratory Results - last 24 hr 04/20/18 04/20/18 04/21/18 13:56 17:58 04:03 WBC 10.5 RBC 4.59 Hgb 15.0 D Hct 43.4 MCV 94.5 MCH 32.7 MCHC 34.7 RDW 13.0 Plt Count 161 D MPV 9.4 Neut % (Auto) 77.6 H Lymph % (Auto) 14.0 Gilmer % (Auto) 7.3 Eos % (Auto) 0.5 Baso % (Auto) 0.6 Neut # (Auto) 8.1 H Lymph # (Auto) 1.5 Gilmer # (Auto) 0.8 Eos # (Auto) 0.0 Baso # (Auto) 0.1 WBC Differential . Differential Comment Auto diff final Sodium Potassium Chloride Carbon Dioxide Anion Gap BUN Creatinine Estimated GFR POC Glucose 104 98 Random Glucose Calcium Phosphorus Magnesium 04/21/18 04/21/18 04:20 11:30 WBC RBC Hgb Hct MCV MCH MCHC RDW Plt Count MPV Neut % (Auto) Lymph % (Auto) Gilmer % (Auto) Eos % (Auto) Baso % (Auto) Neut # (Auto) Lymph # (Auto) [place]mer # (Auto) Eos # (Auto) Baso # (Auto) WBC Differential Differential Comment Sodium 142 Potassium 3.8 Chloride 108 H D Carbon Dioxide 28.0 Anion Gap 6 BUN 22 H Creatinine 0.82 Estimated GFR Greater than 89 POC Glucose 135 H Random Glucose 93 Calcium 7.7 L D Phosphorus 2.4 L Magnesium 2.4 - Imaging Impressions Head MRI 04/20/18 00:00 CONCLUSION: 1. Hyperdense lesion in the left cerebellum identified on CT does not have characteristic features of either acute or subacute hemorrhage. This may represent chronic hemorrhage which has developed calcification. There is no surrounding edema or mass effect. There is no evidence of associated infarct 2. 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 3. No evidence of acute infarct, mass effect or edema. Head CT 04/21/18 05:00 CONCLUSION: 1. Rounded hyperdensity in the left cerebellar hemisphere unchanged. 2. Right temporal lobe encephalomalacia unchanged. . Assessment and Plan - Plan This patient is a 72-year-old male with a history of throat cancer status post resection, chemotherapy and radiation who presented with complaints of dizziness , nausea, vomiting, and headache. In the emergency department the patient was evaluated and imaging of the brain showed left cerebellar hemorrhage. As per documentation the patient had chest tightness and pvcs on route to the ER and was given lidocaine which improved the PVCs. 1. Acute left cerebellar intraparenchymal hemorrhage 2. Hypertensive emergency The patient initially presented with the symptoms mentioned above. In the emergency department he was found to have an elevated systolic blood pressure here 200. CT scan of the head showed a left cerebellar intraparenchymal hemorrhage approximately 9 mm. No midline shift. 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 Blood pressure is now under control. Continue Coreg. Continue PT/OT. Repeat CT scans of the head does not show any significant change. Patient currently tolerating a diet. Repeat MRI done approximately 15 minutes ago. We will follow-up the results of MRI if the bleed is stable the patient be transferred out of the intensive care unit. 3. Tobacco smoking 4. COPD Patient has an extensive history of tobacco smoking. Patient advised to stop smoking. Chest imaging shows findings consistent with emphysema. Patient likely has COPD. Patient will be given DuoNeb treatments as needed. Symbicort will also be started. Patient is currently on 2 L of supplemental oxygen. Case discussed with the nurse to wean the patient off of supplemental O2 as O2 saturations are currently around 98%. Keep O2 sats above 92%. No pharmacotherapy for DVT prophylaxis the patient currently has a left cerebellar bleed.
[2018-04-21] MEDS: Budesonide-Formoterol 80/4.5 MCG 6.9 GM Inhaler INH SCH (21:14)
[2018-04-22] MEDS: Insulin NovoLIN Regular Correctional Sugar Inj SQ SCH ×5 (01:12→23:38)
[2018-04-22] MEDS: Chlorhexidine Gluconate 2% 1 Pack (2 Cloths) TOPICAL SCH (04:35)
[2018-04-22] MEDS: Sod Chloride 0.9% Inj 1,000 ML IV.CONT SCH ×2 (06:20→16:00)
[2018-04-22 07:07] LABS: Baso # (Auto) 0.1 th/mm3 (0.0-0.2); Baso % (Auto) 0.5 % (0.0-2.0); Eos % (Auto) 0.2 % (0.0-4.0); Hematocrit 40.5 % (39.0-51.0); Hemoglobin 14.2 gm/dL (13.0-17.0); Lymph % (Auto) 8.1 % (9.0-44.0); Mean Corpuscular Hemoglobin 32.6 pg (27.0-34.0); Mean Corpuscular Volume 93.2 fL (80.0-100.0); Mean Platelet Volume 9.9 fL (7.0-11.0); Mono # (Auto) 0.9 th/mm3 (0.0-0.9); Mono % (Auto) 7.3 % (0.0-8.0); Neut # (Auto) 10.1 th/mm3 (1.8-7.7); Neut % (Auto) 83.9 % (16.0-70.0); Platelet Count 146 th/mm3 (150-450); Red Blood Count 4.35 mil/mm3 (4.50-5.90)
[2018-04-22 07:29] LABS: Anion Gap 8 meq/L (5-15); Blood Urea Nitrogen 15 mg/dL (7-18); Carbon Dioxide 25.5 meq/L (21.0-32.0); Chloride 106 meq/L (98-107); Glomerular Filtration Rate Greater Than 89 mL/min (>89); Glucose,Random 93 mg/dL (74-106); Phosphorus 2.8 mg/dL (2.5-4.9); Potassium 3.6 meq/L (3.5-5.1); Sodium 139 meq/L (136-145)
[2018-04-22] MEDS: Polyethylene Glycol 3350 17 GM Packet PO SCH ×2 (09:26→21:29)
[2018-04-22] MEDS: Famotidine 20 MG Tablet PO SCH ×2 (09:30→21:29)
[2018-04-22] MEDS: Senna/Docusate Sodium 8.6/50 MG Tablet PO SCH ×2 (09:30→21:29)
[2018-04-22] MEDS: Budesonide-Formoterol 80/4.5 MCG 6.9 GM Inhaler INH SCH ×2 (09:31→21:29)
--- NOTE | 2018-04-22 12:31 | P.PNNS ---
Subjective Interval history: MRA Head completed, unremarkable, neuro exam stable Physical Exam Vital signs: Vital Signs 04/21/18 12:56 04/21/18 13:00 04/21/18 13:26 Temperature Pulse Rate 77 101 H 88 Respiratory Rate 16 24 Blood Pressure 141/91 H 137/72 Pulse Oximetry 95 96 95 04/21/18 13:56 04/21/18 14:00 04/21/18 14:26 Temperature Pulse Rate 85 87 91 H Respiratory Rate 23 24 21 Blood Pressure 151/79 H 138/82 Pulse Oximetry 96 97 95 04/21/18 14:56 04/21/18 15:00 04/21/18 15:26 Temperature Pulse Rate 89 87 91 H Respiratory Rate 24 23 23 Blood Pressure 151/91 H 148/89 H Pulse Oximetry 98 98 97 04/21/18 15:56 04/21/18 16:00 04/21/18 16:26 Temperature 98.6 F Pulse Rate 100 H 96 H 91 H Respiratory Rate 24 20 22 Blood Pressure 139/84 155/78 H Pulse Oximetry 96 95 96 04/21/18 16:56 04/21/18 17:00 04/21/18 17:26 Temperature Pulse Rate 93 H 93 H 94 H Respiratory Rate 23 22 22 Blood Pressure 136/68 131/68 Pulse Oximetry 96 95 95 04/21/18 17:56 04/21/18 18:00 04/21/18 19:00 Temperature 98.0 F Pulse Rate 93 H 92 H 93 H Respiratory Rate 20 21 20 Blood Pressure 136/73 149/86 H Pulse Oximetry 96 96 96 04/21/18 20:00 04/22/18 00:00 04/22/18 04:00 Temperature 98.7 F 98.7 F Pulse Rate 88 99 H Respiratory Rate 20 18 Blood Pressure 136/77 163/87 H Pulse Oximetry 97 96 98 04/22/18 08:00 04/22/18 11:53 Temperature 98.2 F 97.6 F Pulse Rate 91 H 83 Respiratory Rate 20 20 Blood Pressure 143/86 H 111/53 L Pulse Oximetry 96 96 Intake & Output 04/21/18 04/22/18 04/22/18 18:59 06:59 18:59 Intake Total 1979 / 1979 1000 / 1000 360 / 360 Output Total 800 / 800 600 / 600 Balance 1180 / 1180 400 / 400 360 / 360 Intake: IV 1280 / 1280 1000 / 1000 NS Inj 1,000 ML @ 84 mls/hr IV. 1000 / 1000 1000 / 1000 CONT .[id number] [facility] Rx#:[id number] Glycophos Inj 30 MMOL In NS Inj 280 / 280 250 ML @ 42 mls/hr IV.SIG UNSCH [facility] Rx#:[id number] Oral 700 / 700 360 / 360 Output: Urine 800 / 800 600 / 600 Other: # Voids 2 1 Date of Last Bowel Movement 04/19/18 04/21/18 # Bowel Movements 0 Narrative: awake, alert NAD feeding himself breakfast Assessment and Plan - Plan 72 y/o male left cerebellar round mass MRI Brain w/wo contrast reports chronic calcification from prior hemorrhage MRA Head negative for AVMs, aneurysms nonsurgical management of cerebellar mass cont medical management no further NRS interventions planned, ok to dc from NRS standpoint
--- NOTE | 2018-04-22 17:03 | P.PNIM ---
Subjective Interval history: Follow-up for acute left cerebral hemorrhage, hypertensive emergency, COPD, tobacco dependence and marijuana use dependence. Patient seen and examined sitting in bed, denies any headache or dizziness, denies any chest pain or shortness of breath, denies any discomfort. Patient stated he had a history of throat cancer and lung cancer however patient admitted still smoking 1 pack/day and marijuana use at least. Discussed and counseled for smoking and marijuana cessation. Patient not sure about it. Denies any fever or chills, denies any abdominal pain, nausea, vomiting, diarrhea or constipation. Nurse denies any acute issues overnight Physical Exam Vital signs: Last Vital Signs Temp 98.1 F 04/22/18 16:00 Pulse 87 04/22/18 16:00 Resp 20 04/22/18 16:00 BP 139/76 04/22/18 16:00 Pulse Ox 94 L 04/22/18 16:00 Intake & Output 04/20/18 04/21/18 04/22/18 04/23/18 06:59 06:59 06:59 06:59 Intake Total 500 / 500 1950 / 1950 2980 / 2980 360 / 360 Output Total 100 / 100 750 / 750 1400 / 1400 Balance 400 / 400 1200 / 1200 1580 / 1580 360 / 360 Weight 79.379 kg 71.4 kg Narrative: GENERAL: Well-developed, thin appearing male, in no apparent distress SKIN: Warm and dry. HEAD: Atraumatic. Normocephalic. EYES: Pupils equal and round. No scleral icterus. No injection or drainage. ENT: No nasal bleeding or discharge. Mucous membranes pink and moist. NECK: Trachea midline. No JVD. Right neck with surgical scar healed well, decreased range of motion CARDIOVASCULAR: Regular rate and rhythm. RESPIRATORY: No accessory muscle use. Slight rhonchi and diminished auscultation. Breath sounds equal bilaterally. Positive for coarse cough GASTROINTESTINAL: Abdomen soft, non-tender, nondistended. Hepatic and splenic margins not palpable. MUSCULOSKELETAL: Extremities without clubbing, cyanosis, or edema. No obvious deformities. NEUROLOGICAL: Awake and alert. No obvious cranial nerve deficits. Motor grossly within normal limits. Five out of 5 muscle strength in the arms and legs. Normal speech. PSYCHIATRIC: Appropriate mood and affect; insight and judgment normal. Results Labs CBC & Chem 7: 04/22/18 06:11 04/22/18 06:11 Assessment and Plan (1) COPD with exacerbation: Code(s): J44.1 - Chronic obstructive pulmonary disease with (acute) exacerbation Status: Acute (2) Tobacco dependence: Code(s): F17.200 - Nicotine dependence, unspecified, uncomplicated Status: Acute (3) Cannabis dependence: Code(s): F12.20 - Cannabis dependence, uncomplicated Status: Acute Plan This patient is a 72-year-old male with a history of throat cancer status post resection, chemotherapy and radiation who presented with complaints of dizziness , nausea, vomiting, and headache. In the emergency department the patient was evaluated and imaging of the brain showed left cerebellar hemorrhage. As per documentation the patient had chest tightness and pvcs on route to the ER and was given lidocaine which improved the PVCs. Acute left cerebellar intraparenchymal hemorrhage Hypertensive emergency -elevated systolic blood pressure in 200's on admission - CT scan of the head showed a left cerebellar intraparenchymal hemorrhage approximately 9 mm. No midline shift. 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 -Continue Coreg. -Continue PT/OT. -Repeat CT scans of the head does not show any significant change. -Repeat MRI : Negative for major branch vessel occlusion. -previous MRI had shown evidence for an old right temporal infarct. No evidence of acute infarct -Head MRA: Negative for AVMs, aneurysms -Neurology consulted, appreciate recommendation:nonsurgical management of cerebellar mass, cont medical management, no further NRS interventions planned, ok to dc from NRS standpoint Hypertensive emergency -Blood pressure better controlled -Continue Coreg -Monitor blood pressure adjust medication as needed Leukocytosis Elevated WBC on admission 15.8 --> 12 trending down -Heart rate on the high side 90s -Check lactic acid -No fever or chills -Monitor CBC, trend WBC Tobacco dependence COPD with exacerbation Cough -extensive history of tobacco smoking. -Patient counseled to stop smoking. -Chest imaging shows findings consistent with emphysema. Patient likely has COPD. -Patient will be given DuoNeb treatments as needed. Symbicort will also be started. -Patient in room air with O2 sat greater than 92% -No shortness of breath -Scheduled DuoNeb treatments, and Mucinex -Monitor respiratory status -Incentive spirometry every hour while awake DVT prophylaxis: Bilateral SCDs. Patient ambulatory. Not a candidate for anticoagulation due possible left cerebellar bleed Code Status: Full code Discussed Condition With: Patient and nurse Discharge Planning: Plan to discharge in a.m. if vital sign and respiratory status stable after seen by me Progress Note: Quality VTE Deep Vein Thrombosis/Pulmonary Embolism Present on Admission: No
[2018-04-22] MEDS ORDERED: DUONEBS NEB SCH (17:15)
[2018-04-22] MEDS ORDERED: guaiFENesin 600 MG ER Tablet PO SCH (21:00)
[2018-04-23] MEDS: Chlorhexidine Gluconate 2% 1 Pack (2 Cloths) TOPICAL SCH (04:20)
[2018-04-23] MEDS: Insulin NovoLIN Regular Correctional Sugar Inj SQ SCH (05:30)
[2018-04-23 06:16] LABS: Baso # (Auto) 0.1 th/mm3 (0.0-0.2); Baso % (Auto) 0.6 % (0.0-2.0); Eos # (Auto) 0.1 th/mm3 (0.0-0.4); Eos % (Auto) 0.6 % (0.0-4.0); Hematocrit 39.9 % (39.0-51.0); Hemoglobin 13.8 gm/dL (13.0-17.0); Lymph # (Auto) 1.1 th/mm3 (1.0-4.8); Lymph % (Auto) 11.9 % (9.0-44.0); Mean Corpuscular HGB Conc 34.5 % (32.0-36.0); Mean Corpuscular Hemoglobin 32.6 pg (27.0-34.0); Mean Corpuscular Volume 94.4 fL (80.0-100.0); Mean Platelet Volume 9.6 fL (7.0-11.0); Mono # (Auto) 0.7 th/mm3 (0.0-0.9); Mono % (Auto) 7.7 % (0.0-8.0); Neut # (Auto) 7.3 th/mm3 (1.8-7.7); Neut % (Auto) 79.2 % (16.0-70.0); Platelet Count 142 th/mm3 (150-450); Red Blood Count 4.22 mil/mm3 (4.50-5.90); White Blood Count 9.2 th/mm3 (4.0-11.0)
[2018-04-23 06:35] LABS: Anion Gap 7 meq/L (5-15); Blood Urea Nitrogen 14 mg/dL (7-18); Calcium 7.7 mg/dL (8.5-10.1); Carbon Dioxide 25.4 meq/L (21.0-32.0); Chloride 108 meq/L (98-107); Glomerular Filtration Rate Greater Than 89 mL/min (>89); Glucose,Random 96 mg/dL (74-106); Magnesium 2.1 mg/dL (1.5-2.5); Phosphorus 2.5 mg/dL (2.5-4.9); Potassium 3.7 meq/L (3.5-5.1); Sodium 140 meq/L (136-145)
[2018-04-23] MEDS: Sod Chloride 0.9% Inj 1,000 ML IV.CONT SCH (06:50)
--- NOTE | 2018-04-23 09:14 | P.DS ---
DS: Providers Date of admission: 04/20/18 05:33 Primary care physician: No Primary Care Physician Consults: 04/20/18 05:25 Consult to Neurosurgery Stat Consulting Provider: Zia Powell For STAT consult, spoke directly to:: Dr. powell by phone in ED at 5:18AM Preferred Product Coordinator:: Zia Powell Reason for Consultation: Intracranial hemorrhage Spoke with:: cpod verified de to dr Date Notified:: 04/20/18 Time Notified:: 05:49 Ordering Provider: DON 04/20/18 05:40 HUB Only Consult Order Routine Consulting Provider: Rosario Ponce 04/20/18 16:32 Consult to Hospitalist Routine Consulting Provider: Charbel Merlos Reason for Consultation: Assume care 04/21/18 Notified:: Service Spoke with:: robin Date Notified:: 04/20/18 Time Notified:: 16:43 Ordering Provider: LEEANN Brief History from admission: 72yM with onset of symptoms Thursday (04/18), 2 days prior to arrival at the ED. dizziness, nausea, vomiting, headache. found to have small left cerebellar intraparenchymal hemorrhage on CT scan. also per EMS, had multiple PVCs which improved with iv lidocaine. patient denies chest pain, sob, fever, chills, chest pain. denies const/diarrhea/abd pain. has remote prior history of TBI. remainder ROS negative. DS: Diagnosis Discharge Diagnosis (1) COPD with exacerbation: Status: Acute (2) Tobacco dependence: Status: Acute (3) Cannabis dependence: Status: Acute DS: Summary This patient is a 72-year-old male with a history of throat cancer status post resection, chemotherapy and radiation who presented with complaints of dizziness , nausea, vomiting, and headache. In the emergency department the patient was evaluated and imaging of the brain showed left cerebellar hemorrhage. As per documentation the patient had chest tightness and pvcs on route to the ER and was given lidocaine which improved the PVCs. Patient was admitted and workup for Acute left cerebellar intraparenchymal hemorrhage and Hypertensive emergency. Patient had an elevated systolic blood pressure in 200's on admission. Patient was started on Coreg. CT scan of the head showed a left cerebellar intraparenchymal hemorrhage approximately 9 mm. No midline shift. 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 Repeat CT scans of the head does not show any significant change. Repeat MRI : Negative for major branch vessel occlusion. 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 No evidence of acute infarct. Head MRA: Negative for AVMs, aneurysms. Neurology consulted: nonsurgical management of cerebellar mass, cont medical management, no further NRS interventions planned and was cleared for discharge. Patient was also counseled for tobacco dependence and marijuana dependence. Patient with history of COPD with exacerbation and now with complaints of Coughing. Patient had extensive history of tobacco smoking. Patient counseled to stop smoking. Chest imaging shows findings consistent with emphysema. Patient likely has COPD. Symbicort will also be started. And albuterol inhalers for rescue inhalers. Patient in room air with O2 sat greater than 92%. No shortness of breath or wheezes. Patient instructed to use Incentive spirometry every hour while awake. Despite counseling on tobacco cessation and COPD exacerbation, patient stated he will start smoking again as soon as he gets home. Time Spent with Patient Total time spent providing and/or coordinating discharge services: less than 30 mins This patient is a 72-year-old male with a history of throat cancer status post resection, chemotherapy and radiation who presented with complaints of dizziness , nausea, vomiting, and headache. In the emergency department the patient was evaluated and imaging of the brain showed left cerebellar hemorrhage. As per documentation the patient had chest tightness and pvcs on route to the ER and was given lidocaine which improved the PVCs. Patient was admitted and workup for Acute left cerebellar intraparenchymal hemorrhage and Hypertensive emergency. Patient had an elevated systolic blood pressure in 200's on admission. Patient was started on Coreg. CT scan of the head showed a left cerebellar intraparenchymal hemorrhage approximately 9 mm. No midline shift. 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 Repeat CT scans of the head does not show any significant change. Repeat MRI : Negative for major branch vessel occlusion. 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 No evidence of acute infarct. Head MRA: Negative for AVMs, aneurysms. Neurology consulted: nonsurgical management of cerebellar mass, cont medical management, no further NRS interventions planned and was cleared for discharge. Patient was also counseled for tobacco dependence and marijuana dependence. Patient with history of COPD with exacerbation and now with complaints of Coughing. Patient had extensive history of tobacco smoking. Patient counseled to stop smoking. Chest imaging shows findings consistent with emphysema. Patient likely has COPD. Symbicort will also be started. And albuterol inhalers for rescue inhalers. Patient in room air with O2 sat greater than 92%. No shortness of breath or wheezes. Patient instructed to use Incentive spirometry every hour while awake. Despite counseling on tobacco cessation and COPD exacerbation, patient stated he will start smoking again as soon as he gets home. Quality: VTE Deep Vein Thrombosis/Pulmonary Embolism Present on Admission: No Exam Narrative Exam Narrative: GENERAL: Well-developed, thin appearing male, in no apparent distress SKIN: Warm and dry. HEAD: Atraumatic. Normocephalic. EYES: Pupils equal and round. No scleral icterus. No injection or drainage. ENT: No nasal bleeding or discharge. Mucous membranes pink and moist. NECK: Trachea midline. No JVD. Right neck with surgical scar healed well, decreased range of motion CARDIOVASCULAR: Regular rate and rhythm. RESPIRATORY: No accessory muscle use. Slight rhonchi and diminished auscultation. Breath sounds equal bilaterally. Positive for coarse cough GASTROINTESTINAL: Abdomen soft, non-tender, nondistended. Hepatic and splenic margins not palpable. MUSCULOSKELETAL: Extremities without clubbing, cyanosis, or edema. No obvious deformities. NEUROLOGICAL: Awake and alert. No obvious cranial nerve deficits. Motor grossly within normal limits. Five out of 5 muscle strength in the arms and legs. Normal speech. PSYCHIATRIC: Appropriate mood and affect; insight and judgment normal. Results Labs on day of discharge: Labs from last 24 hours 04/23/18 04/23/18 04/23/18 05:44 05:42 05:42 WBC RBC Hgb Hct MCV MCH MCHC RDW Plt Count MPV Neut % (Auto) Lymph % (Auto) [place] % (Auto) Eos % (Auto) Baso % (Auto) Neut # (Auto) Lymph # (Auto) [place] # (Auto) Eos # (Auto) Baso # (Auto) WBC Differential Differential Comment Sodium 140 Potassium 3.7 Chloride 108 H Carbon Dioxide 25.4 Anion Gap 7 BUN 14 Creatinine 0.66 Estimated GFR Greater than 89 POC Glucose 107 Random Glucose 96 Lactic Acid 0.7 Calcium 7.7 L Phosphorus 2.5 Magnesium 2.1 04/23/18 04/22/18 04/22/18 05:42 23:37 16:34 WBC 9.2 RBC 4.22 L Hgb 13.8 Hct 39.9 MCV 94.4 MCH 32.6 MCHC 34.5 RDW 13.0 Plt Count 142 L MPV 9.6 Neut % (Auto) 79.2 H Lymph % (Auto) 11.9 [place] % (Auto) 7.7 Eos % (Auto) 0.6 Baso % (Auto) 0.6 Neut # (Auto) 7.3 Lymph # (Auto) 1.1 [place] # (Auto) 0.7 Eos # (Auto) 0.1 Baso # (Auto) 0.1 WBC Differential . Differential Comment Auto diff final Sodium Potassium Chloride Carbon Dioxide Anion Gap BUN Creatinine Estimated GFR POC Glucose 97 97 Random Glucose Lactic Acid Calcium Phosphorus Magnesium 04/22/18 12:34 WBC RBC Hgb Hct MCV MCH MCHC RDW Plt Count MPV Neut % (Auto) Lymph % (Auto) [place] % (Auto) Eos % (Auto) Baso % (Auto) Neut # (Auto) Lymph # (Auto) [place] # (Auto) Eos # (Auto) Baso # (Auto) WBC Differential Differential Comment Sodium Potassium Chloride Carbon Dioxide Anion Gap BUN Creatinine Estimated GFR POC Glucose 117 H Random Glucose Lactic Acid Calcium Phosphorus Magnesium Impressions ITS Impressions Head MRI 04/20/18 00:00 CONCLUSION: 1. Hyperdense lesion in the left cerebellum identified on CT does not have characteristic features of either acute or subacute hemorrhage. This may represent chronic hemorrhage which has developed calcification. There is no surrounding edema or mass effect. There is no evidence of associated infarct 2. 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 3. No evidence of acute infarct, mass effect or edema. Chest X-Ray 04/20/18 02:57 CONCLUSION: 1. Hyperlucency of the lungs suggesting possible emphysema. 2. No acute cardiopulmonary disease identified. Head MRA 04/21/18 00:00 CONCLUSION: 1. Negative for major branch vessel occlusion. 2. 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 Head CT 04/21/18 05:00 CONCLUSION: 1. Rounded hyperdensity in the left cerebellar hemisphere unchanged. 2. Right temporal lobe encephalomalacia unchanged. . Discharge Plan Discharge Disposition Patient Disposition: Discharge Home Discharge Order Discharge Orders: Discharge Order (Routine); Ordered 04/23/18 Ordered By: Amanda Moreno Neurosurgery Clear for Discharge (Routine); Ordered 04/23/18 Ordered By: Amanda Moreno Discharge Details Anticipated Discharge Date: 04/23/18 Physicians Team Primary Care Provider: Primary Care Michelle Scott Attending Provider: Bear Stroud Other Providers: Zia Powell ; Rosario Ponce Rxs /Orders / Referrals /Forms Prescriptions: New carvedilol [Coreg] 3.125 mg Tablet 3.125 mg PO BID Qty: 60 RF: 0 budesonide-formoterol [Symbicort] 80-4.5 mcg/actuation Hfa Aerosol Inhaler 2 puff INH BID Qty: 1 RF: 0 guaifenesin [Mucinex] 600 mg Tablet Extended Release 12hr 600 mg PO BID Qty: 14 RF: 0 albuterol sulfate 90 mcg/actuation aerosol powdr breath activated 2 inh INHALATION Q4-6H PRN (Reason: shortness of breath or wheezing) 30 Days Qty: 1 RF: 0 Referrals: Primary Care Michelle Scott [Primary Care Provider] - See Instructions Discharge Instructions Patient Printed Instructions: Chest Pain (ED) Additional Instructions: Stop Smoking smoking cessation Discharge Interventions Interventions: Discharge Planning - Case Management Last Done: 04/22/18 12:04 Status ED Status: Left Department
== END 2018-04-23 09:16 | disposition home or self-care (01) ==
LOC: NEPC 02:40 → NEDA 05:33 → N03 06:34 → N05 04-21 19:07
PROVIDERS: ADMIT Hospitalist; ATTEND Hospitalist
DX: F12.20 Cannabis dependence, uncomplicated; Z92.3 Personal history of irradiation; D72.829 Elevated white blood cell count, unspecified; I16.1 Hypertensive emergency; I61.4 Nontraumatic intracerebral hemorrhage in cerebellum; Z87.820 Personal history of traumatic brain injury; F17.210 Nicotine dependence, cigarettes, uncomplicated; J44.1 Chronic obstructive pulmonary disease with (acute) exacerbation; Z92.21 Personal history of antineoplastic chemotherapy; Z85.819 Personal history of malignant neoplasm of unspecified site of lip, oral cavity, and pharynx; I49.3 Ventricular premature depolarization; G93.89 Other specified disorders of brain

== ENCOUNTER 2018-04-30 01:27 | Inpatient (IN) ==
[2018-04-30] MEDS ORDERED: Sod Chloride 0.9% Inj 1,000 ML IV.SIG ONE (01:47)
[2018-04-30] MEDS ORDERED: Morphine Sulfate Inj 8 MG/ML Vial IV.PUSH ONE (01:47)
[2018-04-30 02:47] LABS: Baso # (Auto) 0.1 th/mm3 (0.0-0.2); Baso % (Auto) 0.8 % (0.0-2.0); Eos % (Auto) 0.1 % (0.0-4.0); Hematocrit 42.1 % (39.0-51.0); Hemoglobin 14.6 gm/dL (13.0-17.0); Lymph # (Auto) 1.2 th/mm3 (1.0-4.8); Lymph % (Auto) 8.6 % (9.0-44.0); Mean Corpuscular HGB Conc 34.7 % (32.0-36.0); Mean Corpuscular Hemoglobin 32.2 pg (27.0-34.0); Mean Corpuscular Volume 92.9 fL (80.0-100.0); Mean Platelet Volume 9.4 fL (7.0-11.0); Mono # (Auto) 0.7 th/mm3 (0.0-0.9); Mono % (Auto) 5.2 % (0.0-8.0); Neut # (Auto) 12.3 th/mm3 (1.8-7.7); Neut % (Auto) 85.3 % (16.0-70.0); Platelet Count 347 th/mm3 (150-450); Red Blood Count 4.53 mil/mm3 (4.50-5.90); Red Cell Distribution Width 12.7 % (11.6-17.2); White Blood Count 14.4 th/mm3 (4.0-11.0)
[2018-04-30 02:54] LABS: Amorphous Sediment,Urine Rare /hpf; Bilirubin,Urine Negative (Negative); Clarity,Urine Cloudy (Clear); Color,Urine Yellow (Yellw/Straw); Glucose,Urine (UA) Negative (Negative); Leukocyte Esterase,Urine Negative (Negative); Mucus,Urine Few /lpf (Occasional); Nitrite,Urine Negative (Negative); Specific Gravity,Urine 1.013 (1.002-1.035)
--- NOTE | 2018-04-30 02:57 | CT ---
EXAM DATE: 04/30/2018 2:43 AM EST AGE/SEX: 72 years / Male INDICATIONS: Altered mental status. CLINICAL DATA: This is the patient's initial encounter. Patient reports that signs and symptoms have been present for 1 day and indicates a pain score of 9/10. MEDICAL/SURGICAL HISTORY: Carcinoma, esophageal. Hypertension. None. RADIATION DOSE: 56.35 CTDI (mGy) COMPARISON: [facility], MR HEAD W & W/O CONTRAST, 04/20/2018. [facility], CT HEAD W/O CONTRAST, 04/21/2018. [facility], CT HEAD W/O CONTRAST, 04/20/2018. . TECHNIQUE: CT of the head without contrast. Using automated exposure control and adjustment of the mA and/or kV according to patient size, radiation dose was kept as low as reasonably achievable to ob tain optimal diagnostic quality images. DICOM format image data is available electronically for revi ew and comparison. FINDINGS: Cerebrum: There is a 4 mm area of increased density in the left posterior frontal region. I don't cl early see this on any of the old studies including the previous MRI. There again is a large area righ t temporal encephalomalacia. Posterior Fossa: The patient again has a 13 mm area of hemorrhage in the left cerebellar hemisphere, previously investigated with MRI. Extracranial: The visualized portion of the orbits is intact. Skull: The calvaria is intact. No evidence of skull fracture. CONCLUSION: 1. There is a questionable new 4 mm hypodense lesion in the posterior left frontal lobe. The left ce rebellar lesion is stable and did not appear to be an acute stroke based on the MRI. Otherwise chroni c encephalomalacia of the right temporal lobe posteriorly. . Electronically signed by: Theodore Yueng MD Board Certified Radiologist 04/30/2018 2:56 AM EST
[2018-04-30 03:05] LABS: Alanine Aminotransferase 32 U/L (12-78); Albumin 3.8 g/dL (3.4-5.0); Anion Gap 10 meq/L (5-15); Aspartate Aminotransferase 17 U/L (15-37); Blood Urea Nitrogen 23 mg/dL (7-18); Calcium 8.7 mg/dL (8.5-10.1); Carbon Dioxide 26.7 meq/L (21.0-32.0); Chloride 105 meq/L (98-107); Glomerular Filtration Rate 78 mL/min (>89); Glucose,Random 135 mg/dL (74-106); Lipase 368 U/L (73-393); Magnesium 2.1 mg/dL (1.5-2.5); Potassium 3.7 meq/L (3.5-5.1); Sodium 142 meq/L (136-145)
[2018-04-30 03:10] LABS: Alkaline Phosphatase 99 U/L (45-117)
--- NOTE | 2018-04-30 03:28 | ED ---
HPI General Chief Complaint: Chest Pain Stated Complaint: Chest pains Time Seen by Provider: 04/30/18 01:39 Source: patient Mode of arrival: EMS Limitations: no limitations History of Present Illness HPI narrative: 72 yo M c/o nausea and vomiting. + Dyspnea prior to arrival. Chest heaviness noted prior to arrival. + Tobacco and marijuana today prior to arrival. Pt denies EtOH. No headache. No fever/chills. Pt discharged from [facility] approx 1 week prior following admission for multiple complaints including n/v, dizziness and headache. Imaging of the brain ultimately revealed cerebellar mass NOS. Pt reports doing well at home until this evening just a few hours prior to ED arrival with his symptoms having been preceded by eating a bowl of chicken soup. Related Data Previous Rx's Medication Instructions Recorded albuterol sulfate 2 inh INHALATION Q4-6H PRN 30 Days 04/23/18 #1 each budesonide-formoterol [Symbicort] 2 puff INH BID #1 g 04/23/18 carvedilol [Coreg] 3.125 mg PO BID #60 tab 04/23/18 guaifenesin [Mucinex] 600 mg PO BID #14 tab 04/23/18 Allergies Allergy/AdvReac Type Severity Reaction Status Date / Time No Known Allergies Allergy Verified 04/20/18 02:45 Review of Systems ROS: all other systems reviewed are negative [facility] Family History Family History Other Family history non-contributory Social History Social History Substance History: Active Abuse Smoking Status: Current every day smoker Tobacco Type: Cigarettes How Often Do You Have a Drink Containing Alcohol: Never Substance Abuse Detail Marijuana: Substance Use Status: Active Route Used Substance Abuse: Inhalation Reason for Use: Calm Down Immunization History Tetanus Immunization: Unsure Exam Narrative Exam Narrative: GENERAL: 72 yo M, WNWD, mild distress SKIN: Focused skin assessment warm/dry. HEAD: Atraumatic. Normocephalic. EYES: Pupils equal and round. No scleral icterus. No injection or drainage. ENT: No nasal bleeding or discharge. Mucous membranes pink and moist. NECK: Trachea midline. No JVD. CARDIOVASCULAR: Tachycardia. REgular. RESPIRATORY: No accessory muscle use. Clear to auscultation. Breath sounds equal bilaterally. GASTROINTESTINAL: Abdomen soft, non-tender, nondistended. Hepatic and splenic margins not palpable. MUSCULOSKELETAL: No obvious deformities. No clubbing. No cyanosis. No edema. NEUROLOGICAL: AOx3. CNIII-XII normal. Moving all extremities normally. Speech normal. PSYCHIATRIC: Anxious. No HI/SI. Course Initial Documented Vital Signs Temperature 98.1 F 04/30/18 01:36 Pulse Rate 100 H 04/30/18 01:36 Respiratory Rate 18 04/30/18 01:36 Blood Pressure 139/81 04/30/18 01:36 Pulse Oximetry 98 04/30/18 01:36 Last Documented Vital Signs Temperature 98.1 F 04/30/18 01:36 Pulse Rate 96 H 04/30/18 04:21 Respiratory Rate 19 04/30/18 04:21 Blood Pressure 173/111 H 04/30/18 04:21 Pulse Oximetry 96 04/30/18 01:55 Critical Care Time Critical Care Time: Yes Total Critical Care Time: 35 Attestation: Aggregate critical care time was 35 minutes. Time to perform other separately billable procedures was not included in the critical care time. My time did not include minutes spent treating any other patients simultaneously or on activities that did not directly contribute to the patient's treatment. The services I provided to this patient were to treat and/or prevent clinically significant deterioration that could result in: intracranial hemorrhage, permanent weakness I provided critical care services requiring my management, as noted below: Chart data review, documentation time, medication orders and management, vital sign assessments/reviewing monitor data, ordering and reviewing lab tests, ordering and interpreting/reviewing x-rays and diagnostic studies, care of the patient and discussion of the patient with the admitting physicians. Medical Decision Making MDM Narrative Medical decision making narrative: CBC shows WBC of 14.4 with Hb and PLT normal CMP with BUN 23/0.95 UA: no UTI Lactic acid 1.4 Tn < 0.[address] head: 4mm hyperdensity posterior L frontal distribution, new in comparison to multiple prior CTs and MR studies. Pt has no focal neurologic deficit. VS normal. d/w Dr Powell for neurosurgery who requests admission to [facility] under summer counselor service. d/w Dr Elliott for [facility]/summer counselor service. Medical Screen Exam Complete: Yes Emergency Medical Condition: Yes Lab Data Result diagrams: 04/30/18 02:05 04/30/18 02:05 Lab Results 04/30/18 04/30/1804/30/18 Range/Units 02:05 02:05 02:05 WBC 14.4 H (4.0-11.0) th/mm3 RBC 4.53 (4.50-5.90) mil/mm3 Hgb 14.6 (13.0-17.0) gm/dL Hct 42.1 (39.0-51.0) % MCV 92.9 (80.0-100.0) fL MCH 32.2 (27.0-34.0) pg MCHC 34.7 (32.0-36.0) % RDW 12.7 (11.6-17.2) % Plt Count 347 D (150-450) th/mm3 MPV 9.4 (7.0-11.0) fL Neut % (Auto) 85.3 H (16.0-70.0) % Lymph % (Auto) 8.6 L (9.0-44.0) % [place] % (Auto) 5.2 (0.0-8.0) % Eos % (Auto) 0.1 (0.0-4.0) % Baso % (Auto) 0.8 (0.0-2.0) % Neut # (Auto) 12.3 H (1.8-7.7) th/mm3 Lymph # (Auto) 1.2 (1.0-4.8) th/mm3 [place] # (Auto) 0.7 (0.0-0.9) th/mm3 Eos # (Auto) 0.0 (0.0-0.4) th/mm3 Baso # (Auto) 0.1 (0.0-0.2) th/mm3 WBC Differential . Differential Comment Auto diff final Sodium 142 (136-145) meq/L Potassium 3.7 (3.5-5.1) meq/L Chloride 105 (98-107) meq/L Carbon Dioxide 26.7 (21.0-32.0) meq/L Anion Gap 10 (5-15) meq/L BUN 23 H (7-18) mg/dL Creatinine 0.95 (0.60-1.30) mg/dL Estimated GFR 78 L (>89) mL/min Random Glucose 135 H (74-106) mg/dL Lactic Acid 1.4 (0.4-2.0) mmol/L Calcium 8.7 (8.5-10.1) mg/dL Magnesium 2.1 (1.5-2.5) mg/dL Total Bilirubin 0.4 (0.2-1.0) mg/dL AST 17 (15-37) U/L ALT 32 (12-78) U/L Alkaline Phosphatase 99 (45-117) U/L Troponin I Less than 0.02 L (0.02-0.05) ng/mL Total Protein 7.0 (6.4-8.2) g/dL Albumin 3.8 (3.4-5.0) g/dL Lipase 368 (73-393) U/L Urine Color (Yellw/Straw) Urine Clarity (Clear) Urine pH (5.0-8.5) Ur Specific [place] (1.002-1.035) Urine Protein (Neg-Trace) mg/dL Urine Glucose (UA) (Negative) mg/dL Urine Ketones (Negative) mg/dL Urine Occult Blood (Negative) Urine Nitrate (Negative) Urine Bilirubin (Negative) Urine Urobilinogen (Less than 2) mg/dL Ur Leukocyte Esterase (Negative) Urine RBC (0-3) /hpf Amorphous Sediment (None) /hpf Urine Mucus (Occasional) /lpf Micro UA Comment Ur Microscopic Review Urine Culture Comments 04/30/18 Range/Units 02:30 WBC (4.0-11.0) th/mm3 RBC (4.50-5.90) mil/mm3 Hgb (13.0-17.0) gm/dL Hct (39.0-51.0) % MCV (80.0-100.0) fL MCH (27.0-34.0) pg MCHC (32.0-36.0) % RDW (11.6-17.2) % Plt Count (150-450) th/mm3 MPV (7.0-11.0) fL Neut % (Auto) (16.0-70.0) % Lymph % (Auto) (9.0-44.0) % [place] % (Auto) (0.0-8.0) % Eos % (Auto) (0.0-4.0) % Baso % (Auto) (0.0-2.0) % Neut # (Auto) (1.8-7.7) th/mm3 Lymph # (Auto) (1.0-4.8) th/mm3 [place] # (Auto) (0.0-0.9) th/mm3 Eos # (Auto) (0.0-0.4) th/mm3 Baso # (Auto) (0.0-0.2) th/mm3 WBC Differential Differential Comment Sodium (136-145) meq/L Potassium (3.5-5.1) meq/L Chloride (98-107) meq/L Carbon Dioxide (21.0-32.0) meq/L Anion Gap (5-15) meq/L BUN (7-18) mg/dL Creatinine (0.60-1.30) mg/dL Estimated GFR (>89) mL/min Random Glucose (74-106) mg/dL Lactic Acid (0.4-2.0) mmol/L Calcium (8.5-10.1) mg/dL Magnesium (1.5-2.5) mg/dL Total Bilirubin (0.2-1.0) mg/dL AST (15-37) U/L ALT (12-78) U/L Alkaline Phosphatase (45-117) U/L Troponin I (0.02-0.05) ng/mL Total Protein (6.4-8.2) g/dL Albumin (3.4-5.0) g/dL Lipase (73-393) U/L Urine Color Yellow (Yellw/Straw) Urine Clarity Cloudy H (Clear) Urine pH 7.0 (5.0-8.5) Ur Specific [place] 1.013 (1.002-1.035) Urine Protein Negative (Neg-Trace) mg/dL Urine Glucose (UA) Negative (Negative) mg/dL Urine Ketones 20 (Negative) mg/dL Urine Occult Blood Negative (Negative) Urine Nitrate Negative (Negative) Urine Bilirubin Negative (Negative) Urine Urobilinogen Less than 2 (Less than 2) mg/dL Ur Leukocyte Esterase Negative (Negative) Urine RBC 2 (0-3) /hpf Amorphous Sediment Rare H (None) /hpf Urine Mucus Few H (Occasional) /lpf Micro UA Comment Culture not ind Ur Microscopic Review Not Reportable Urine Culture Comments Culture not ind Imaging Data Radiologist's impression: Head CT 04/30/18 02:21 CONCLUSION: 1. There is a questionable new 4 mm hypodense lesion in the posterior left frontal lobe. The left cerebellar lesion is stable and did not appear to be an acute stroke based on the MRI. Otherwise chronic encephalomalacia of the right temporal lobe posteriorly. . Discharge Plan Discharge Disposition Patient Disposition: ED Admit(ED Internal Use Only) Discharge Order Discharge Orders: ED Use Only Admit Order (Routine); Ordered 04/30/18 Ordered By: Fredy Kerr Physicians Team ED Provider: Freyd Kerr Primary Care Provider: Primary Care Michelle Scott Attending Provider: José Elliott Other Providers: Rosario Ponce ; Zia Powell Status ED Status: Admitted Patient
[2018-04-30] MEDS ORDERED: Sod Chloride 0.9% Inj 1,000 ML IV.SIG SCH (03:30)
[2018-04-30] MEDS ORDERED: Bisacodyl 10 MG Supp RECTAL PRN (05:04)
[2018-04-30] MEDS: Sod Chloride 0.9% Inj 1,000 ML IV.CONT SCH ×2 (05:20→17:29)
[2018-04-30] MEDS ORDERED: Labetalol HCl Inj 100 MG/20 ML Vial ONE (05:26)
[2018-04-30] MEDS ORDERED: Clevidipine Inj 25 MG/50 ML VIAL IV.CONT PRN (05:33)
[2018-04-30] MEDS ORDERED: Labetalol HCl Inj 100 MG/20 ML Vial IV.PUSH PRN (05:35)
--- NOTE | 2018-04-30 05:52 | P.HPCC ---
History of Present Illness Service: Critical care medicine Primary Care Physician: No Primary Care Physician Chief Complaint: chest pressure, nausea, vomiting History of Present Illness: 72 yo M c/o nausea and vomiting. + Dyspnea prior to arrival. Chest heaviness noted prior to arrival. + Tobacco and marijuana prior to arrival at ED. Pt denies EtOH. No headache. No fever/chills. [place] [facility] [place] following admission for multiple complaints including n/v, dizziness and headache. Imaging of the brain ultimately revealed hyperdense cerebellar lesion c/w hemorrhage. Patient was evaluated by neurosurgery, blood pressure was controlled and he was subsequently recommended conservative management and discharged home. Pt reports doing well at home until 04/29 just a few hours prior to ED arrival with his symptoms having been preceded by eating a bowl of chicken soup. On evaluation in the ER patient was hypertensive. Head CT revealed a new small hyperdense lesion in the left frontal lobe suspicious for hemorrhage which was not present on his previous imaging. Dr. Powell from neurosurgery was consulted and requested admission by critical care medicine service. Patient was accepted for admission by critical care medicine service. When I evaluated the patient he was laying in bed appears anxious and complaining of chest pressure. His systolic blood pressure was 190s for which labetalol 20 mg IV stat was ordered. Patient otherwise awake and alert moving all 4 extremities however appearing anxious at the time of my evaluation. Inpatient Certification: I certify that the inpatient services were ordered in accordance with Medicare regulations governing the order. This includes certification that hospital inpatient services are reasonable and necessary and in the case of services not specified as inpatient-only under 42 CFR 419.22(n), that they are appropriately provided as inpatient services in accordance to with the 2-midnight benchmark under 43 CFR 412.3(e) Estimated Total Length of Stay (Days): 5 Plans for Post Hospital Care: Not yet determined Review of Systems All other systems reviewed negative except as stated in HPI [facility] - History History Provided By: Patient - Medical History Medical History: Medical History (Last Reviewed 04/30/18 @ 01:30 by Sofía Valles) Cancer - Family History Family History: Family History (Last Updated 04/20/18 @ 05:38 by Randy Ashley MD) Other Family history non-contributory - Tobacco History Tobacco Use In Past 30 Days: No Smoking Status: Current every day smoker Tobacco Type: Cigarettes - Alcohol History How Often Do You Have a Drink Containing Alcohol: Never - Substance Use History Substance History: Active Abuse - Substance Use Type Marijuana Status: Active Route Used: Inhalation Reason for Use: Calm Down - Immunization History Tetanus Immunization: Unsure Medications and Allergies Active Medications: Active Medications Al Hydroxide/Mg Hydroxide (Milk Of Magnesia Liq) 30 ml PO Q12H PRN PRN Reason: Mild Constipation Bisacodyl (Dulcolax Supp) 10 mg RECTAL DAILY PRN PRN Reason: SEVERE CONSITIPATION Chlorhexidine Gluconate (Chlorhexidine 2% Cloth) 3 pack TOPICAL DAILY@0400 CONSTANTIN Stop: 05/06/18 03:59 Chlorhexidine Gluconate (Chlorhexidine 2% Cloth) 3 pack TOPICAL DAILY@0400 PRN PRN Reason: Extra cloth needed Stop: 05/06/18 03:59 Sodium Chloride (Ns Inj) 1,000 mls @ 84 mls/hr IV.CONT .[id number] CONSTANTIN Labetalol HCl (Trandate Inj) 20 mg IV.PUSH Q2H PRN PRN Reason: SBP > 160 Lactulose (Lactulose Liq) 30 ml PO DAILY PRN PRN Reason: SEVERE CONSITIPATION Senna/Docusate Sodium (Leisa-Colace) 1 tab PO BID CONSTANTIN Sennosides (Senokot) 17.2 mg PO Q12H PRN PRN Reason: Moderate Constipation Sodium Chloride (Ns Flush) 2 ml IV.FLUSH PRN PRN PRN Reason: FLUSH AFTER USING IV ACCESS Sodium Chloride (Ns Flush) 2 ml IV.FLUSH BID CONSTANTIN Sodium Chloride (Ns Flush) 2 ml IV.FLUSH PRN PRN PRN Reason: FLUSH AFTER USING IV ACCESS Allergies Allergy/AdvReac Type Severity Reaction Status Date / Time No Known Allergies Allergy Verified 04/20/18 02:45 Results - Labs CBC & Chem 7: 04/30/18 02:05 04/30/18 02:05 Labs: Short CBC 04/30/18 Range/Units 02:05 WBC 14.4 H (4.0-11.0) th/mm3 Hgb 14.6 (13.0-17.0) gm/dL Hct 42.1 (39.0-51.0) % Plt Count 347 D (150-450) th/mm3 BMP 04/30/18 02:05 Sodium 142 Potassium 3.7 Chloride 105 Carbon Dioxide 26.7 BUN 23 H Creatinine 0.95 Calcium 8.7 Cardiac Enzymes 04/30/18 Range/Units 02:05 Troponin I Less than 0.02 L (0.02-0.05) ng/mL Liver Function 04/30/18 Range/Units 02:05 Total Bilirubin 0.4 (0.2-1.0) mg/dL AST 17 (15-37) U/L ALT 32 (12-78) U/L Alkaline Phosphatase 99 (45-117) U/L Albumin 3.8 (3.4-5.0) g/dL Urine 04/30/18 Range/Units 02:30 Urine Color Yellow (Yellw/Straw) Urine Clarity Cloudy H (Clear) Urine pH 7.0 (5.0-8.5) Ur Specific [place] 1.013 (1.002-1.035) Urine Protein Negative (Neg-Trace) mg/dL Urine Glucose (UA) Negative (Negative) mg/dL - Imaging Impressions Head CT 04/30/18 02:21 CONCLUSION: 1. There is a questionable new 4 mm hypodense lesion in the posterior left frontal lobe. The left cerebellar lesion is stable and did not appear to be an acute stroke based on the MRI. Otherwise chronic encephalomalacia of the right temporal lobe posteriorly. . Exam Vital signs: Vital Signs 04/30/18 01:36 04/30/18 01:38 04/30/18 01:55 Temperature 98.1 F Pulse Rate 100 H Respiratory Rate 18 19 Blood Pressure 139/81 Pulse Oximetry 98 96 04/30/18 04:12 04/30/18 04:21 Temperature Pulse Rate 95 H 96 H Respiratory Rate 15 19 Blood Pressure 173/111 H Pulse Oximetry Intake & Output 04/29/18 04/29/18 04/30/18 06:59 18:59 06:59 Intake Total 1999 Balance 1999 Weight 79.379 kg Intake: IV 1999 NS Inj 1,000 ML @ 1000 mls/hr 1999 IV.SIG BOLUS CONSTANTIN Rx#:[id number] Other: # Voids 3 Narrative: HEENT/Neuro: No pallor or icterus, tongue moist, LEONIDAS, Awake alert oriented 3 , appears anxious, nonfocal grossly, moving all 4 extremities Neck: No JVD Chest/pulmonary: CTA bilaterally Cardiovascular: S1-S2 regular no gallop or murmur GI/abdomen: Soft, nontender, bowel sounds present Extremities: Warm bilaterally, no edema Caprini VTE Risk Assessment Caprini VTE Risk Assessment: Moderate/High Risk (score >= 2) VTE Pharmacological Exception Reason: Intracranial lesions Caprini Risk Assessment Model: Point Value = 1 Point Value = 2 Point Value = 3 Point Value = 5 Age 41-60 Minor surgery BMI > 25 kg/m2 Swollen legs Varicose veins or History of unexplained or recurrent spontaneous Oral contraceptives or hormone replacement Sepsis (< 1 month) Serious lung disease, including pneumonia (< 1 month) Abnormal pulmonary function Acute myocardial infarction Congestive heart failure (< 1 month) History of inflammatory bowel disease Medical patient at bed rest Age 61-74 Arthroscopic surgery Major open surgery (> 45 min) Laparoscopic surgery (> 45 min) Malignancy Confined to bed (> 72 hours) Immobilizing plaster cast Central venous access Age >= 75 History of VTE Family history of VTE Factor V Leiden Prothrombin [id number] Lupus anticoagulant Anticardiolipin antibodies Elevated serum homocysteine Heparin-induced thrombocytopenia Other congenital or acquired thrombophilia Stroke (< 1 month) Elective arthroplasty Hip, pelvis, or leg fracture Acute spinal cord injury (< 1 month) Prophylaxis Regimen: Total Risk Factor Score Risk Level Prophylaxis Regimen 0-1 Low Early ambulation 2 Moderate Order ONE of the following: *Sequential Compression Device (SCD) *Heparin 5000 units SQ BID 3-4 Higher Order ONE of the following medications: *Heparin 5000 units SQ TID *Enoxaparin/Lovenox 40 mg SQ daily (WT < 150 kg, CrCl > 30 mL/min) *Enoxaparin/Lovenox 30 mg SQ daily (WT < 150 kg, CrCl > 10-29 mL/min) *Enoxaparin/Lovenox 30 mg SQ BID (WT < 150 kg, CrCl > 30 mL/min) AND/OR *Sequential Compression Device (SCD) 5 or more Highest Order ONE of the following medications: *Heparin 5000 units SQ TID (Preferred with Epidurals) *Enoxaparin/Lovenox 40 mg SQ daily (WT < 150 kg, CrCl > 30 mL/min) *Enoxaparin/Lovenox 30 mg SQ daily (WT < 150 kg, CrCl > 10-29 mL/min) *Enoxaparin/Lovenox 30 mg SQ BID (WT < 150 kg, CrCl > 30 mL/min) AND *Sequential Compression Device (SCD) Assessment and Plan - Assessment and Plan Plan: 72-year-old male with: Hypertensive emergency New left frontal intracerebral hemorrhage Cerebellar hemorrhage(old) PVCs COPD Tobacco use Marijuana use Plan: -Admit to [facility] [place]Neurosurgery and neurology consult requested for further evaluation. Patient has been evaluated by Dr. Powell on his previous admission. -Labetalol PRN. Added Cleviprex gtt. to keep SBP less than 140 mmHg. Was discharged on Coreg last admission which will be continued. -Bronchodilators as needed -N.p.o. for now, probably advance diet later today after neurosurgery evaluation -Zofran as needed for nausea vomiting -Normal LV function noted during last admission on echo. Ordered repeat echo in view of chest pressure which is probably related to uncontrolled hypertension. Troponin negative. -Watch for hyperglycemia, SSI for glycemic control if needed -Follow CBC -Pepcid for GI prophylaxis, SCDs for DVT prophylaxis. Condition critical Time spent on critical care excluding procedures 40 minutes
--- NOTE | 2018-04-30 07:19 | P.CONNEU ---
History of Present Illness Service: Neurology Reason for Consult: abnormal ct scan Primary Care Provider: No Primary Care Physician Chief Complaint: chest pressure, nausea, vomiting History of Present Illness: 72-year-old male with history hypertension recently discharged from the hospital readmitted for complaints of nausea vomiting chest pain not have severe hypertension. Transferred to the intensive care unit on antihypertensive drip. Denies any headache focal weakness or visual loss. Previous admission is found to have a small cerebellar hemorrhage. He was discharged on blood pressure medication although admits that he only took 1 pill since he was discharged. States he still looking for a primary care physician through his insurance. Previous MRI brain scan showing old infarcts. MRA [place] no significant vaso-occlusive disease. Review of Systems All other systems reviewed negative except as stated in HPI [facility] - History History Provided By: Patient - Medical History Medical History: Medical History (Last Reviewed 04/30/18 @ 01:30 by Sofía Valles) Cancer - Family History Family History: Family History (Last Updated 04/20/18 @ 05:38 by Randy Ashley MD) Other Family history non-contributory - Tobacco History Second Hand Smoke Exposure: Yes Tobacco Use In Past 30 Days: No Smoking Status: Current every day smoker Tobacco Type: Cigarettes - Alcohol History How Often Do You Have a Drink Containing Alcohol: Never - Substance Use History Substance History: Active Abuse - Substance Use Type Marijuana Status: Active Route Used: Inhalation Reason for Use: Calm Down Comment: treats anxiety and pain able to substitute pills with pot. - Travel History Recent Travel in the [place] Within the Last 8 Weeks: No Recent Travel Out of the Country Within the Last 8 Weeks: No - Immunization History Tetanus Immunization: Unsure Hx Influenza Vaccine This Season: No Medications and Allergies Active Medications: Active Medications Al Hydroxide/Mg Hydroxide (Milk Of Mohamud Liq) 30 ml PO Q12H PRN PRN Reason: Mild Constipation Bisacodyl (Dulcolax Supp) 10 mg RECTAL DAILY PRN PRN Reason: SEVERE CONSITIPATION Chlorhexidine Gluconate (Chlorhexidine 2% Cloth) 3 pack TOPICAL DAILY@0400 CONSTANTIN Stop: 05/06/18 03:59 Chlorhexidine Gluconate (Chlorhexidine 2% Cloth) 3 pack TOPICAL DAILY@0400 PRN PRN Reason: Extra cloth needed Stop: 05/06/18 03:59 Sodium Chloride (Ns Inj) 1,000 mls @ 84 mls/hr IV.CONT .[id number] CONSTANTIN Last Admin: 04/30/18 05:20 Dose: 84 mls/hr Clevidipine (Cleviprex Inj) 25 mg in 50 mls @ 2 mls/hr IV.CONT TITRATE PRN; Protocol PRN Reason: Per protocol Last Admin: 04/30/18 06:00 Dose: 1 mg/hr, 2 mls/hr Labetalol HCl (Trandate Inj) 20 mg IV.PUSH Q2H PRN PRN Reason: SBP > 160 Last Admin: 04/30/18 05:20 Dose: 20 mg Lactulose (Lactulose Liq) 30 ml PO DAILY PRN PRN Reason: SEVERE CONSITIPATION Senna/Docusate Sodium (Leisa-Colace) 1 tab PO BID [facility] Sennosides (Senokot) 17.2 mg PO Q12H PRN PRN Reason: Moderate Constipation Sodium Chloride (Ns Flush) 2 ml IV.FLUSH PRN PRN PRN Reason: FLUSH AFTER USING IV ACCESS Last Admin: 04/30/18 06:18 Dose: 2 ml Sodium Chloride (Ns Flush) 2 ml IV.FLUSH BID CONSTANTIN Sodium Chloride (Ns Flush) 2 ml IV.FLUSH PRN PRN PRN Reason: FLUSH AFTER USING IV ACCESS Allergies Allergy/AdvReac Type Severity Reaction Status Date / Time No Known Allergies Allergy Verified 04/20/18 02:45 Exam Vital signs: Vital Signs 04/30/18 01:36 04/30/18 01:38 04/30/18 01:55 Temperature 98.1 F Pulse Rate 100 H Respiratory Rate 18 19 Blood Pressure 139/81 Pulse Oximetry 98 96 04/30/18 03:55 04/30/18 04:12 04/30/18 04:21 Temperature Pulse Rate 96 H 95 H 96 H Respiratory Rate 18 15 19 Blood Pressure 149/83 H 173/111 H Pulse Oximetry 04/30/18 05:30 04/30/18 05:45 04/30/18 06:00 Temperature 98.6 F Pulse Rate 89 80 82 Respiratory Rate 13 13 15 Blood Pressure 156/82 H 178/81 H 159/85 H Pulse Oximetry 99 98 97 04/30/18 06:15 Temperature Pulse Rate 81 Respiratory Rate 18 Blood Pressure 116/57 L Pulse Oximetry 98 Intake & Output 12/20/18 12/21/18 12/21/18 18:59 06:59 18:59 Intake Total 1999 Output Total 150 / 150 Balance 1850 / 1850 Weight 69.5 kg Intake: IV 1999 NS Inj 1,000 ML @ 1000 mls/hr 1999 IV.SIG BOLUS CONSTANTIN Rx#:[id number] Output: Urine 150 / 150 Other: # Voids 3 Weight On Admission 69.5 kg Narrative: GENERAL: in NAD, sitting up in his bed looks well SKIN: Warm and dry. HEAD: Atraumatic. Normocephalic. EYES: Pupils equal and round. No scleral icterus. ENT: No nasal bleeding or discharge. Mucous membranes pink and moist. NECK: Trachea midline. No JVD. Atrophy neck and sternocleidomastoid muscles history of previous radiation treatment CARDIOVASCULAR: Regular rate and rhythm. RESPIRATORY: No accessory muscle use. GASTROINTESTINAL: Abdomen soft, non-tender, nondistended. NEUROLOGICAL: Awake and alert. Oriented x3, no aphasia, fluent articulate, No facial asymmetry, OU 3-2mm, eomi, VFF, No drift, Motor grossly within normal limits. Five out of 5 muscle strength in the arms and legs. Reflex symmetric no neglect gait not assessed secondary fall risk PSYCHIATRIC: Appropriate mood and affect; insight and judgment normal. - Constitutional no acute distress - Routine HEENT Exam Head: Present: normocephalic Eye: Present: EOMI Results - Labs CBC & Chem 7: 04/30/18 02:05 04/30/18 02:05 Labs: Laboratory Results - last 24 hr 04/30/18 04/30/18 04/30/18 02:05 02:05 02:05 WBC 14.4 H RBC 4.53 Hgb 14.6 Hct 42.1 MCV 92.9 MCH 32.2 MCHC 34.7 RDW 12.7 Plt Count 347 D MPV 9.4 Neut % (Auto) 85.3 H Lymph % (Auto) 8.6 L [place] % (Auto) 5.2 Eos % (Auto) 0.1 Baso % (Auto) 0.8 Neut # (Auto) 12.3 H Lymph # (Auto) 1.2 [place] # (Auto) 0.7 Eos # (Auto) 0.0 Baso # (Auto) 0.1 WBC Differential . Differential Comment Auto diff final Sodium 142 Potassium 3.7 Chloride 105 Carbon Dioxide 26.7 Anion Gap 10 BUN 23 H Creatinine 0.95 Estimated GFR 78 L Random Glucose 135 H Lactic Acid 1.4 Calcium 8.7 Magnesium 2.1 Total Bilirubin 0.4 AST 17 ALT 32 Alkaline Phosphatase 99 Troponin I Less than 0.02 L Total Protein 7.0 Albumin 3.8 Lipase 368 Urine Color Urine Clarity Urine pH Ur Specific [place] Urine Protein Urine Glucose (UA) Urine Ketones Urine Occult Blood Urine Nitrate Urine Bilirubin Urine Urobilinogen Ur Leukocyte Esterase Urine RBC Amorphous Sediment Urine Mucus Micro UA Comment Ur Microscopic Review Urine Culture Comments 04/30/18 02:30 WBC RBC Hgb Hct MCV MCH MCHC RDW Plt Count MPV Neut % (Auto) Lymph % (Auto) [place] % (Auto) Eos % (Auto) Baso % (Auto) Neut # (Auto) Lymph # (Auto) [place] # (Auto) Eos # (Auto) Baso # (Auto) WBC Differential Differential Comment Sodium Potassium Chloride Carbon Dioxide Anion Gap BUN Creatinine Estimated GFR Random Glucose Lactic Acid Calcium Magnesium Total Bilirubin AST ALT Alkaline Phosphatase Troponin I Total Protein Albumin Lipase Urine Color Yellow Urine Clarity Cloudy H Urine pH 7.0 Ur Specific [place] 1.013 Urine Protein Negative Urine Glucose (UA) Negative Urine Ketones 20 Urine Occult Blood Negative Urine Nitrate Negative Urine Bilirubin Negative Urine Urobilinogen Less than 2 Ur Leukocyte Esterase Negative Urine RBC 2 Amorphous Sediment Rare H Urine Mucus Few H Micro UA Comment Culture not ind Ur Microscopic Review Not Reportable Urine Culture Comments Culture not ind - Imaging Impressions Head CT 04/30/18 02:21 CONCLUSION: 1. There is a questionable new 4 mm hypodense lesion in the posterior left frontal lobe. The left cerebellar lesion is stable and did not appear to be an acute stroke based on the MRI. Otherwise chronic encephalomalacia of the right temporal lobe posteriorly. . Review/Management - Diagnosis (1) Hypertensive urgency Code(s): I16.0 - Hypertensive urgency Status: Acute Current Visit: Yes (2) Chronic ischemic right MCA stroke Code(s): I69.30 - Unspecified sequelae of cerebral infarction Status: Acute Current Visit: Yes (3) Cannabis dependence Code(s): F12.20 - Cannabis dependence, uncomplicated Status: Acute Current Visit: No (4) Tobacco dependence Code(s): F17.200 - Nicotine dependence, unspecified, uncomplicated Status: Acute Current Visit: No (5) Cerebellar hemorrhage Code(s): I61.4 - Nontraumatic intracerebral hemorrhage in cerebellum Status: Acute Current Visit: No - Review/Management Plan: symptoms may be related to hypertensive urgency Does not appear to have any new neurologic deficit CT brain scan stable Recommendation Carotid ultrasound for assessment of his previous stroke Blood pressure control Further evaluation of cardiac complaints per critical care/medical service Tobacco cessation Compliance of blood pressure medications Behavioral modification and risk factor reduction. Weight loss, blood pressure control, blood sugar control, lipid control. Exercise (5) Cerebellar hemorrhage Qualifiers: Intracerebral hemorrhage etiology: nontraumatic Laterality: left Qualified Code(s): I61.4 - Nontraumatic intracerebral hemorrhage in cerebellum
--- NOTE | 2018-04-30 08:32 | ECG ---
Date Performed: 04/30/2018 Time Performed: 01:38:14 PTAGE: 72 years EKG: SINUS TACHYCARDIA WITH OCCASIONAL ECTOPIC PREMATURE COMPLEXES POSSIBLE RIGHT ATRIAL ENLARGE MENT POSSIBLE LEFT ATRIAL ENLARGEMENT ABNORMAL RHYTHM ECG PREVIOUS TRACING : 04/20/2018 10.22 DOCTOR: Theodore Knutson Interpretating Date/Time 04/30/2018 08:31:22
[2018-04-30] MEDS: Senna/Docusate Sodium 8.6/50 MG Tablet PO SCH ×2 (08:51→21:13)
--- NOTE | 2018-04-30 09:06 | P.CONNS ---
History of Present Illness Service: Neurosurgery Consult date: 04/30/18 Requesting Physician: Fredy Kerr Reason for Consult: cerebral mass Primary Care Provider: No Primary Care Physician Chief Complaint: chest pressure, nausea, vomiting History of Present Illness: This is a 72 yo male presented e to the ER with nausea and vomiting. Dyspnea prior to arrival. Chest heaviness noted prior to arrival. Used Tobacco and marijuana prior to arrival at ED. Pt denies EtOH. No headache. No fever/chills. He was discharged from [facility] approx 1 week prior following admission for multiple complaints including n/v, dizziness and headache. Imaging of the brain ultimately revealed hyperdense cerebellar lesion c/w hemorrhage. Patient was evaluated by neurosurgery, blood pressure was controlled and he was subsequently recommended conservative management and discharged home. He was doing well at home until 04/29 just a few hours prior to ED arrival with his symptoms having been preceded by eating a bowl of chicken soup. On evaluation in the ER patient was hypertensive. Head CT revealed a new small hyperdense lesion in the left frontal lobe suspicious for hemorrhage which was not present on his previous imaging. The patient has been anxious and complaining of chest pressure. His systolic blood pressure was 190s for which labetalol 20 mg IV stat was ordered. Patient otherwise awake and alert moving all 4 extremities. Denies focal weakness. denies sensoiry loss. Denies loss of coordination, visual changes, or visual loss. Neurosurgery consultation was requested PMFSH - History History Provided By: Patient - Medical History Medical History: Medical History (Last Reviewed 05/01/18 @ 07:27 by Jessica Gomez) Cancer - Family History Family History: Family History (Last Updated 04/20/18 @ 05:38 by Randy Ashley MD) Other Family history non-contributory - Tobacco History Second Hand Smoke Exposure: Yes Tobacco Use In Past 30 Days: No Smoking Status: Current every day smoker Tobacco Type: Cigarettes - Alcohol History How Often Do You Have a Drink Containing Alcohol: Never - Substance Use History Substance History: Active Abuse - Substance Use Type Marijuana Status: Active Route Used: Inhalation Reason for Use: Calm Down Comment: treats anxiety and pain able to substitute pills with pot. - Travel History Recent Travel in the [place] Within the Last 8 Weeks: No Recent Travel Out of the Country Within the Last 8 Weeks: No - Immunization History Tetanus Immunization: Unsure Hx Influenza Vaccine This Season: No Medications and Allergies Active Medications: Active Medications Al Hydroxide/Mg Hydroxide (Milk Of Magnesia Liq) 30 ml PO Q12H PRN PRN Reason: Mild Constipation Bisacodyl (Dulcolax Supp) 10 mg RECTAL DAILY PRN PRN Reason: SEVERE CONSITIPATION Chlorhexidine Gluconate (Chlorhexidine 2% Cloth) 3 pack TOPICAL DAILY@0400 CONSTANTIN Stop: 05/06/18 03:59 Chlorhexidine Gluconate (Chlorhexidine 2% Cloth) 3 pack TOPICAL DAILY@0400 PRN PRN Reason: Extra cloth needed Stop: 05/06/18 03:59 Sodium Chloride (Ns Inj) 1,000 mls @ 84 mls/hr IV.CONT .[id number] [facility] Last Infusion: 04/30/18 08:21 Dose: 84 mls/hr Clevidipine (Cleviprex Inj) 25 mg in 50 mls @ 2 mls/hr IV.CONT TITRATE PRN; Protocol PRN Reason: Per protocol Last Titration: 04/30/18 08:21 Dose: 3 mg/hr, 6 mls/hr Labetalol HCl (Trandate Inj) 20 mg IV.PUSH Q2H PRN PRN Reason: SBP > 160 Last Admin: 04/30/18 05:20 Dose: 20 mg Lactulose (Lactulose Liq) 30 ml PO DAILY PRN PRN Reason: SEVERE CONSITIPATION Senna/Docusate Sodium (Leisa-Colace) 1 tab PO BID [facility] Last Admin: 04/30/18 08:51 Dose: 1 tab Sennosides (Senokot) 17.2 mg PO Q12H PRN PRN Reason: Moderate Constipation Sodium Chloride (Ns Flush) 2 ml IV.FLUSH PRN PRN PRN Reason: FLUSH AFTER USING IV ACCESS Last Admin: 04/30/18 06:18 Dose: 2 ml Sodium Chloride (Ns Flush) 2 ml IV.FLUSH BID [facility] Last Admin: 04/30/18 08:51 Dose: 2 ml Sodium Chloride (Ns Flush) 2 ml IV.FLUSH PRN PRN PRN Reason: FLUSH AFTER USING IV ACCESS Allergies Allergy/AdvReac Type Severity Reaction Status Date / Time No Known Allergies Allergy Verified 04/20/18 02:45 Exam Vital signs: Vital Signs 04/30/18 01:36 04/30/18 01:38 04/30/18 01:55 Temperature 98.1 F Pulse Rate 100 H Respiratory Rate 18 19 Blood Pressure 139/81 Pulse Oximetry 98 96 04/30/18 03:55 04/30/18 04:12 04/30/18 04:21 Temperature Pulse Rate 96 H 95 H 96 H Respiratory Rate 18 15 19 Blood Pressure 149/83 H 173/111 H Pulse Oximetry 04/30/18 05:30 04/30/18 05:45 04/30/18 06:00 Temperature 98.6 F Pulse Rate 89 80 82 Respiratory Rate 13 13 15 Blood Pressure 156/82 H 178/81 H 159/85 H Pulse Oximetry 99 98 97 04/30/18 06:15 04/30/18 07:00 04/30/18 08:00 Temperature 98.7 F Pulse Rate 81 81 85 Respiratory Rate 18 18 23 Blood Pressure 116/57 L 181/81 H 178/96 H Pulse Oximetry 98 98 97 Intake & Output 04/29/18 04/30/18 04/30/18 18:59 06:59 18:59 Intake Total 1999 258 / 258 Output Total 150 / 150 Balance 1850 / 1850 258 / 258 Weight 69.5 kg Intake: IV 1999 258 / 258 Cleviprex Inj 25 mg In 50 ml @ 8 / 8 1 MG/HR 2 mls/hr IV.CONT TITRATE PRN Rx#:[id number] NS Inj 1,000 ML @ 84 mls/hr IV. 250 / 250 CONT .[id number] CONSTANTIN Rx#:[id number] NS Inj 1,000 ML @ 1000 mls/hr 1999 IV.SIG BOLUS CONSTANTIN Rx#:[id number] Output: Urine 150 / 150 Other: # Voids 3 Weight On Admission 69.5 kg Narrative: The patient is alert, awake. Comfortable, in no acute distress. Speech is fluent. Cranial nerve examination: pupils to be equal, round and reactive to light. Extra-ocular movements are intact. Facial motor and sensory function are normal and symmetrical. Gross hearing appears intact. Sternocleidomastoid and trapezius muscles are symmetrical. Other cranial nerves are intact. Neck is soft and supple with a good range of motion without pain. Muscle strength is normal in all muscle groups of both upper and lower extremities. Sensory examination is intact to light touch and pin prick in both the upper and lower extremities. Deep tendon reflexes are symmetrical in both upper and lower extremities. There is a bilateral plantar flexion response. Cerebellar examination is unremarkable, without deficits. Lungs are clear Heart regular rhythm is regular rate Skin warm and dry Results - Laboratory Findings CBC and BMP: 05/01/18 03:35 05/01/18 03:35 Abnormal lab findings: Abnormal Labs 04/30/18 04/30/18 04/30/18 02:05 02:05 02:30 WBC 14.4 H Neut % (Auto) 85.3 H Lymph % (Auto) 8.6 L Neut # (Auto) 12.3 H BUN 23 H Estimated GFR 78 L Random Glucose 135 H Troponin I Less than 0.02 L Urine Clarity Cloudy H Amorphous Sediment Rare H Urine Mucus Few H Assessment and Plan - Plan I have reviewed the clinical and radiological findings Head CT 04/30/18 02:21 CONCLUSION: 1. There is a questionable new 4 mm hypodense lesion in the posterior left frontal lobe. The left cerebellar lesion is stable and did not appear to be an acute stroke based on the MRI. Otherwise chronic encephalomalacia of the right temporal lobe posteriorly. . Neuro: neuro checks in a serial fashion. Non surgical treatment is indicated Pulmonary: aggressive pulmonary toilette, nasotracheal suction, and breathing treatments with nebulizers. Daily PT and OT Renal: Continue to monitor closely urine output, BUN and creatinine Endocrine: Continue to Monitor serial Acu checks and SSI as needed in detail ID continue to monitor for signs of infection Continue Protonix for stress ulcer prophylaxis Continue Miguel A hose and SCD's for DVT prophylaxis
--- NOTE | 2018-04-30 11:53 | P.DIET ---
Nutritional Evaluation Type of nutrition evaluation: initial Nutrition screening: Weight Loss > 10 lbs Subjective Subjective Comments: Reports good appetite but difficulty swallowing. Objective - Diagnosis ICH, N/V, dyspnea - Objective Body Mass Index: 19.7 % IBW: 80 (IBW = 190#) Body Weight Used for Calculations: Actual (69.5 kg) Energy Needs - Lower Range (kCal/kg): 32 Energy Needs - Upper Range (kCal/kg): 36 Lower Limit kCal/kg (kCals): 2,224 Upper Limit kCal/kg (kCals): 2,502 Lower Limit Protein Factor (Grams per Kg): 1.3 Upper Limit Protein Factor (Grams per Kg): 1.6 Lower Protein Needs (Protein): 90 Upper Protein Needs (Protein): 111 Dietitian Reviewed in Medical Record: Current diet, Curent medications, Intake & Output, Labs, Medical history Diet Order: Clear Liquids Assessment Assessment: Pt is at high nutrition risk 2' to dx and unintentional weight loss. Currently receiving only clear liquids. RD will monitor diet advance and po intake to assess the need for supplements. Pt may benefit from a ST swallow eval. Recommendations: Advance diet as able. Consider ST Consult RD following Dietitian to Monitor: Lab values, Intake & Output, Diet tolerance, Weight change , PO Intake, Diet advancement, Medical course
--- NOTE | 2018-04-30 11:54 | US ---
EXAM DATE: 04/30/2018 11:29 AM EST AGE/SEX: 72 years / Male INDICATIONS: Dizziness. CLINICAL DATA: This is the patient's initial encounter. Patient reports that signs and symptoms have been present for 1 day and indicates a pain score of 0/10. MEDICAL/SURGICAL HISTORY: . Tongue and neck cancer. Radiation. None. COMPARISON: No prior exams available for comparison. VELOCITY PARAMETERS: ICA/CCA Ratio: Right 0.9 , Left 1.3 ICA: Right 49 cm/sec, Left 72 cm/sec CCA: Right 55 cm/sec, Left 57 cm/sec ECA: Right 79 cm/sec, Left 83 cm/sec Vertebral: Right n/a cm/sec antegrade, Left 47 cm/sec antegrade FINDINGS: RIGHT CAROTID: There is no evidence for a hemodynamically significant carotid stenosis. Minimal int imal hyperplasia is present with scattered calcific plaque. LEFT CAROTID: There is no evidence for a hemodynamically significant carotid stenosis. Minimal inti mal hyperplasia is present with scattered calcific plaque. The right vertebral not visualized. Antegrade flow is present on the left. There are no ancillary masses or adenopathy. CONCLUSION: Negative examination for a hemodynamically significant carotid stenosis. Umberto Cummins MD FACR Electronically signed by: Umberto Cummins MD Board Certified Radiologist 04/30/2018 11:53 AM EST
[2018-04-30 12:36] LABS: Anion Gap 7 meq/L (5-15); Blood Urea Nitrogen 14 mg/dL (7-18); Calcium 7.9 mg/dL (8.5-10.1); Carbon Dioxide 28.5 meq/L (21.0-32.0); Chloride 108 meq/L (98-107); Glomerular Filtration Rate Greater Than 89 mL/min (>89); Glucose,Random 104 mg/dL (74-106); Potassium 3.9 meq/L (3.5-5.1); Sodium 143 meq/L (136-145)
--- NOTE | 2018-04-30 19:09 | ECHRPT ---
Indication: Cerebral Embolism CONCLUSIONS Normal left ventricular size. Wall thickness is normal. The left ventricular systolic function is normal with an estimated ejection fraction in the range of 55-60%. Trace mitral valve regurgitation. The transthoracic study is normal by two-dimensional, color flow imaging and Doppler interrogation. BP: 109 / 59 HR: 79 Rhythm: MEASUREMENTS (Male / Female) Normal Values Technical Quality:Technically difficult study 2D ECHO LV Diastolic Diameter PLAX 4.5 cm 4.2 - 5.9 / 3.9 - 5.3 cm LV Systolic Diameter PLAX 3.1 cm IVS Diastolic Thickness 0.8 cm 0.6 - 1.0 / 0.6 - 0.9 cm LVPW Diastolic Thickness 0.8 cm 0.6 - 1.0 / 0.6 - 0.9 cm LV Relative Wall Thickness 0.4 Aortic Root Diameter 3.3 cm LA Systolic Diameter LX 2.6 cm 3.0 - 4.0 / 2.7 - 3.8 cm FINDINGS LEFT VENTRICLE Normal left ventricular size. Wall thickness is normal. The left ventricular systolic function is normal with an estimated ejection fraction in the range of 55-60%. MITRAL VALVE Trace mitral valve regurgitation. John Al MD, FACC, FSCAI (Electronically Signed) Final Date:30 April 2018 19:08
[2018-04-30] MEDS: Budesonide-Formoterol 80/4.5 MCG 6.9 GM Inhaler INH SCH (22:00)
[2018-05-01] MEDS ORDERED: Chlorhexidine Gluconate 2% 1 Pack (2 Cloths) TOPICAL PRN (04:00)
[2018-05-01 04:51] LABS: Baso # (Auto) 0.1 th/mm3 (0.0-0.2); Baso % (Auto) 0.7 % (0.0-2.0); Eos # (Auto) 0.1 th/mm3 (0.0-0.4); Eos % (Auto) 0.7 % (0.0-4.0); Hematocrit 40.6 % (39.0-51.0); Hemoglobin 13.9 gm/dL (13.0-17.0); Lymph # (Auto) 1.6 th/mm3 (1.0-4.8); Lymph % (Auto) 13.1 % (9.0-44.0); Mean Corpuscular HGB Conc 34.3 % (32.0-36.0); Mean Corpuscular Hemoglobin 32.4 pg (27.0-34.0); Mean Corpuscular Volume 94.5 fL (80.0-100.0); Mean Platelet Volume 9.1 fL (7.0-11.0); Mono # (Auto) 0.8 th/mm3 (0.0-0.9); Mono % (Auto) 6.4 % (0.0-8.0); Neut # (Auto) 9.3 th/mm3 (1.8-7.7); Neut % (Auto) 79.1 % (16.0-70.0); Platelet Count 243 th/mm3 (150-450); Red Cell Distribution Width 12.5 % (11.6-17.2); White Blood Count 11.8 th/mm3 (4.0-11.0)
[2018-05-01 05:20] LABS: Alanine Aminotransferase 25 U/L (12-78); Alkaline Phosphatase 87 U/L (45-117); Anion Gap 7 meq/L (5-15); Aspartate Aminotransferase 15 U/L (15-37); Blood Urea Nitrogen 15 mg/dL (7-18); Calcium 7.9 mg/dL (8.5-10.1); Carbon Dioxide 26.4 meq/L (21.0-32.0); Chloride 108 meq/L (98-107); Glomerular Filtration Rate 87 mL/min (>89); Glucose,Random 87 mg/dL (74-106); Potassium 4.2 meq/L (3.5-5.1); Sodium 141 meq/L (136-145); Total Protein 5.8 g/dL (6.4-8.2)
--- NOTE | 2018-05-01 06:22 | CT ---
EXAM DATE: 05/01/2018 6:16 AM EST AGE/SEX: 72 years / Male INDICATIONS: Follow up bleed. CLINICAL DATA: This is the patient's subsequent encounter. Patient reports that signs and symptoms h ave been present for 1 week and indicates a pain score of 0/10. MEDICAL/SURGICAL HISTORY: . Throat cancer 10 years ago None. RADIATION DOSE: 56.35 CTDI (mGy) COMPARISON: [facility] [place], CT BRAIN W/O CONTRAST, 11/20/2011. . TECHNIQUE: CT of the head without contrast. Using automated exposure control and adjustment of the mA and/or kV according to patient size, radiation dose was kept as low as reasonably achievable to ob tain optimal diagnostic quality images. DICOM format image data is available electronically for revi ew and comparison. FINDINGS: Cerebrum: The patient again has areas of hyperintensity in the high left frontoparietal region with a small nodule measuring 4 to 5 mm across. It is stable from the previous day's study. There are some areas of encephalomalacia in the right posterior temporal region. No new lesions are identified. The suprasellar cistern is widely patent. No subarachnoid or subdural hematoma is identified. Posterior Fossa: There is a stable area of increased density in the left cerebellar hemisphere measu ring 12 to 13 mm across. No new lesions identified. Extracranial: The visualized portion of the orbits is intact. Skull: The calvaria is intact. No evidence of skull fracture. CONCLUSION: 1. Stable areas of increased density in the left side of the brain involving the cerebrum and one in the cerebellum unchanged from the previous day's study. I asked to review the study back in November which has some areas of intraparenchymal hemorrhage and subarachnoid hemorrhage. The area in the hi gh left frontoparietal region may have been present. No definite acute new lesion is identified . Electronically signed by: Theodore Yeung MD Board Certified Radiologist 05/01/2018 6:20 AM EST
--- NOTE | 2018-05-01 08:03 | P.PNIM ---
Subjective Interval history: f/u; hypertensive emergency in no acute distress. denies headache,nausea or vomiting. has occasional cough and mild wheezing. BP trend noted. d/w the RN at the bedside. Physical Exam Vital signs: Last Vital Signs Temp 98.6 F 05/01/18 00:00 Pulse 75 05/01/18 07:38 Resp 18 05/01/18 07:38 BP 142/83 H 05/01/18 07:38 Pulse Ox 96 05/01/18 07:23 Intake & Output 04/29/18 04/30/18 05/01/18 05/02/18 06:59 06:59 06:59 06:59 Intake Total 2000 / 1999 1800 / 1800 Output Total 150 / 150 2300 / 2300 Balance 1850 / 1850 -500 / -500 Weight 69.5 kg Constitutional no acute distress Routine Respiratory Exam Present CTA bilaterally and wheezes Routine Cardiovascular Exam Present RRR Routine Abdominal Exam Present soft Routine Extremities Exam Comments: no pedal edema. Routine Neurological Exam Present alert and oriented X3 Results Labs CBC & Chem 7: 05/01/18 03:35 05/01/18 03:35 Imaging Imaging: Impressions Carotid Doppler Study 04/30/18 09:24 CONCLUSION: Negative examination for a hemodynamically significant carotid stenosis. Umberto Cummins MD FACR Head CT 05/01/18 05:00 CONCLUSION: 1. Stable areas of increased density in the left side of the brain involving the cerebrum and one in the cerebellum unchanged from the previous day's study. I asked to review the study back in November 2011 which has some areas of intraparenchymal hemorrhage and subarachnoid hemorrhage. The area in the high left frontoparietal region may have been present. No definite acute new lesion is identified . Assessment and Plan (1) Hypertensive urgency: Code(s): I16.0 - Hypertensive urgency Status: Acute (2) Chronic ischemic right MCA stroke: Code(s): I69.30 - Unspecified sequelae of cerebral infarction Status: Acute (3) Cannabis dependence: Code(s): F12.20 - Cannabis dependence, uncomplicated Status: Acute (4) Tobacco dependence: Code(s): F17.200 - Nicotine dependence, unspecified, uncomplicated Status: Acute (5) Cerebellar hemorrhage: Code(s): I61.4 - Nontraumatic intracerebral hemorrhage in cerebellum Status: Acute Plan A/P Hypertensive emergency with New left frontal intracerebral hemorrhage/ Cerebellar hemorrhage(old) CT head today stable. continue with Coreg and follow the BP trend closely- neurology and neurosurgery following. carotid doppler with no significant stenosis- echo with EF 55% COPD/Tobacco use/Marijuana use continue Symbicort- will add neb treatments- counselled on smoking cessation DVT prophylaxis with SCD's- no chemical prophylaxis due to cerebral bleed. transfer to floor when ok with neurosurgery. Progress Note: Quality VTE Deep Vein Thrombosis/Pulmonary Embolism Present on Admission: No _ (1) Cerebellar hemorrhage Qualifiers: Intracerebral hemorrhage etiology: nontraumatic Laterality: left Qualified Code(s): I61.4 - Nontraumatic intracerebral hemorrhage in cerebellum
[2018-05-01] MEDS: Chlorhexidine Gluconate 2% 1 Pack (2 Cloths) TOPICAL SCH (08:12)
--- NOTE | 2018-05-01 08:16 | P.PNNEU ---
Subjective Subjective Comments: No cp, no dyspnea, no breaux, no focal weakness, no vision loss States history of head trauma 4 years ago Active Medications: Active Medications Al Hydroxide/Mg Hydroxide (Milk Of Magnesia Liq) 30 ml PO Q12H PRN PRN Reason: Mild Constipation Albuterol (Albuterol Neb (Prn)) 1.25 mg NEB Q4HR NEB PRN PRN Reason: SHORTNESS OF BREATH Bisacodyl (Dulcolax Supp) 10 mg RECTAL DAILY PRN PRN Reason: SEVERE CONSITIPATION Budesonide/Formoterol Fumarate (Symbicort 80/4.5 Mcg Inh) 2 puff INH BID [facility] Last Admin: 04/30/18 22:00 Dose: 2 puff Carvedilol (Coreg) 3.125 mg PO BID [facility] Last Admin: 04/30/18 21:13 Dose: 3.125 mg Chlorhexidine Gluconate (Chlorhexidine 2% Cloth) 3 pack TOPICAL DAILY@0400 [facility] Stop: 05/06/18 03:59 Last Admin: 05/01/18 08:12 Dose: Not Given Chlorhexidine Gluconate (Chlorhexidine 2% Cloth) 3 pack TOPICAL DAILY@0400 PRN PRN Reason: Extra cloth needed Stop: 05/06/18 03:59 Labetalol HCl (Trandate Inj) 20 mg IV.PUSH Q2H PRN PRN Reason: SBP > 160 Last Admin: 04/30/18 05:20 Dose: 20 mg Lactulose (Lactulose Liq) 30 ml PO DAILY PRN PRN Reason: SEVERE CONSITIPATION Senna/Docusate Sodium (Leisa-Colace) 1 tab PO BID [facility] Last Admin: 04/30/18 21:13 Dose: 1 tab Sennosides (Senokot) 17.2 mg PO Q12H PRN PRN Reason: Moderate Constipation Sodium Chloride (Ns Flush) 2 ml IV.FLUSH BID [facility] Last Admin: 04/30/18 21:13 Dose: 2 ml Sodium Chloride (Ns Flush) 2 ml IV.FLUSH PRN PRN PRN Reason: FLUSH AFTER USING IV ACCESS Allergies/Adverse Reactions: Allergies Allergy/AdvReac Type Severity Reaction Status Date / Time No Known Allergies Allergy Verified 04/20/18 02:45 Review of Systems All other systems reviewed negative except as stated in HPI Physical Exam Vital signs: Vital Signs 04/30/18 08:23 04/30/18 08:38 04/30/18 08:53 Temperature Pulse Rate 86 86 84 Respiratory Rate 32 H 40 H 21 Blood Pressure 175/84 H 158/77 H 112/57 L Pulse Oximetry 97 97 94 L 04/30/18 09:00 04/30/18 09:08 04/30/18 09:23 Temperature Pulse Rate 86 84 82 Respiratory Rate 20 21 18 Blood Pressure 102/59 L 108/54 L Pulse Oximetry 95 96 96 04/30/18 09:38 04/30/18 09:53 04/30/18 10:00 Temperature Pulse Rate 83 78 77 Respiratory Rate 19 24 17 Blood Pressure 121/56 L 115/57 L Pulse Oximetry 97 97 98 04/30/18 10:08 04/30/18 10:23 04/30/18 10:38 Temperature Pulse Rate 76 79 71 Respiratory Rate 19 21 22 Blood Pressure 109/59 L 119/62 105/59 L Pulse Oximetry 97 97 98 04/30/18 10:53 04/30/18 11:00 04/30/18 11:08 Temperature Pulse Rate 78 84 79 Respiratory Rate 40 H 20 19 Blood Pressure 131/61 121/67 Pulse Oximetry 98 98 98 04/30/18 11:23 04/30/18 11:38 04/30/18 11:53 Temperature Pulse Rate 78 75 81 Respiratory Rate 20 19 23 Blood Pressure 126/71 123/70 117/72 Pulse Oximetry 98 98 97 04/30/18 12:00 04/30/18 12:08 04/30/18 12:23 Temperature 97.6 F Pulse Rate 75 74 74 Respiratory Rate 15 18 19 Blood Pressure 125/77 121/74 Pulse Oximetry 98 97 97 04/30/18 12:38 04/30/18 12:53 04/30/18 13:00 Temperature Pulse Rate 76 80 78 Respiratory Rate 17 18 24 Blood Pressure 118/73 122/78 Pulse Oximetry 97 98 98 04/30/18 13:08 04/30/18 13:23 04/30/18 13:38 Temperature Pulse Rate 80 72 73 Respiratory Rate 21 29 H 17 Blood Pressure 121/76 128/70 127/72 Pulse Oximetry 98 98 97 04/30/18 13:53 04/30/18 14:00 04/30/18 14:08 Temperature Pulse Rate 81 77 76 Respiratory Rate 19 20 19 Blood Pressure 137/78 116/69 Pulse Oximetry 95 94 L 94 L 04/30/18 14:23 04/30/18 14:38 04/30/18 14:53 Temperature Pulse Rate 77 83 78 Respiratory Rate 20 21 19 Blood Pressure 109/66 115/68 109/66 Pulse Oximetry 91 L 89 L 84 L 04/30/18 15:00 04/30/18 15:08 04/30/18 15:23 Temperature Pulse Rate 79 85 76 Respiratory Rate 19 18 20 Blood Pressure 105/65 103/65 Pulse Oximetry 84 L 88 L 94 L 04/30/18 15:38 04/30/18 15:53 04/30/18 16:00 Temperature 97.8 F Pulse Rate 77 80 75 Respiratory Rate 20 19 20 Blood Pressure 115/69 111/68 126/78 Pulse Oximetry 92 L 96 04/30/18 16:08 04/30/18 16:23 04/30/18 16:38 Temperature Pulse Rate 75 71 71 Respiratory Rate 21 20 21 Blood Pressure 110/68 116/72 125/76 Pulse Oximetry 04/30/18 16:53 04/30/18 17:00 04/30/18 17:08 Temperature Pulse Rate 72 71 70 Respiratory Rate 21 19 18 Blood Pressure 129/77 126/78 Pulse Oximetry 96 96 97 04/30/18 17:23 04/30/18 17:38 04/30/18 17:53 Temperature Pulse Rate 71 71 75 Respiratory Rate 19 19 20 Blood Pressure 130/80 137/83 133/85 Pulse Oximetry 98 98 98 04/30/18 18:00 04/30/18 18:08 04/30/18 18:23 Temperature Pulse Rate 75 76 80 Respiratory Rate 20 20 20 Blood Pressure 157/91 H 144/83 H Pulse Oximetry 96 96 97 04/30/18 18:38 04/30/18 18:53 04/30/18 19:00 Temperature Pulse Rate 80 80 81 Respiratory Rate 19 19 20 Blood Pressure 143/84 H 123/69 Pulse Oximetry 95 93 L 96 04/30/18 23:23 04/30/18 23:38 04/30/18 23:50 Temperature Pulse Rate 74 Respiratory Rate 22 Blood Pressure 158/92 H 143/87 H Pulse Oximetry 97 97 04/30/18 23:53 05/01/18 00:00 05/01/18 00:08 Temperature 98.6 F Pulse Rate 72 74 75 Respiratory Rate 23 17 22 Blood Pressure 129/78 142/85 H Pulse Oximetry 97 97 97 05/01/18 00:23 05/01/18 00:38 05/01/18 00:53 Temperature Pulse Rate 73 74 74 Respiratory Rate 25 H 20 20 Blood Pressure 128/76 120/69 127/71 Pulse Oximetry 97 97 98 05/01/18 01:00 05/01/18 01:08 05/01/18 01:23 Temperature Pulse Rate 74 75 73 Respiratory Rate 20 18 20 Blood Pressure 113/70 129/68 Pulse Oximetry 98 97 97 05/01/18 01:38 05/01/18 01:53 05/01/18 02:00 Temperature Pulse Rate 75 76 75 Respiratory Rate 19 27 H 28 H Blood Pressure 153/69 H 147/69 H Pulse Oximetry 97 98 98 05/01/18 02:08 05/01/18 02:23 05/01/18 02:38 Temperature Pulse Rate 79 76 77 Respiratory Rate 17 19 19 Blood Pressure 126/64 120/56 L 118/59 L Pulse Oximetry 98 98 98 05/01/18 02:53 05/01/18 03:00 05/01/18 03:08 Temperature Pulse Rate 77 82 75 Respiratory Rate 19 20 20 Blood Pressure 119/71 116/68 Pulse Oximetry 98 98 98 05/01/18 03:23 05/01/18 03:38 05/01/18 03:53 Temperature Pulse Rate 74 77 75 Respiratory Rate 25 H 16 14 Blood Pressure 113/56 L 126/70 121/72 Pulse Oximetry 98 96 96 05/01/18 04:00 05/01/18 04:08 05/01/18 04:23 Temperature Pulse Rate 73 73 74 Respiratory Rate 16 19 20 Blood Pressure 123/67 125/70 Pulse Oximetry 99 99 98 05/01/18 04:38 05/01/18 04:53 05/01/18 05:00 Temperature Pulse Rate 77 81 75 Respiratory Rate 19 15 20 Blood Pressure 123/66 139/87 Pulse Oximetry 97 97 97 05/01/18 05:08 05/01/18 05:23 05/01/18 05:53 Temperature Pulse Rate 77 73 74 Respiratory Rate 20 20 18 Blood Pressure 141/91 H 133/79 124/76 Pulse Oximetry 97 95 94 L 05/01/18 06:00 05/01/18 06:08 05/01/18 06:23 Temperature Pulse Rate 75 79 76 Respiratory Rate 17 30 H 17 Blood Pressure 118/74 112/74 Pulse Oximetry 94 L 93 L 93 L 05/01/18 06:38 05/01/18 06:53 05/01/18 07:00 Temperature Pulse Rate 76 74 72 Respiratory Rate 19 19 18 Blood Pressure 126/75 118/73 Pulse Oximetry 91 L 93 L 95 05/01/18 07:08 05/01/18 07:23 05/01/18 07:38 Temperature Pulse Rate 71 73 75 Respiratory Rate 19 18 18 Blood Pressure 120/75 124/72 142/83 H Pulse Oximetry 95 96 Intake & Output 04/30/18 05/01/18 05/01/18 18:59 06:59 18:59 Intake Total 1500 / 1500 300 / 300 Output Total 1800 / 1800 500 / 500 Balance -300 / -300 -200 / -200 Intake: IV 1020 / 1020 Cleviprex Inj 25 mg In 50 ml @ 20 / 20 1 MG/HR 2 mls/hr IV.CONT TITRATE PRN Rx#:[id number] NS Inj 1,000 ML @ 84 mls/hr IV. 1000 / 1000 CONT .[id number] CONSTANTIN Rx#:[id number] Oral 480 / 480 300 / 300 Output: Urine 1800 / 1800 500 / 500 Other: # Voids 5 2 Narrative: GENERAL: in NAD, sitting up in his bed looks well SKIN: Warm and dry. HEAD: Atraumatic. Normocephalic. EYES: Pupils equal and round. No scleral icterus. ENT: No nasal bleeding or discharge. Mucous membranes pink and moist. NECK: Trachea midline. No JVD. Atrophy neck and sternocleidomastoid muscles history of previous radiation treatment CARDIOVASCULAR: Regular rate and rhythm. RESPIRATORY: No accessory muscle use. GASTROINTESTINAL: Abdomen soft, non-tender, nondistended. NEUROLOGICAL: Awake and alert. Oriented x3, no aphasia, fluent articulate, No facial asymmetry, eomi, VFF, No drift, Motor grossly within normal limits. Five out of 5 muscle strength in the arms and legs. Reflex symmetric no neglect gait not assessed secondary fall risk PSYCHIATRIC: Appropriate mood and affect; insight and judgment normal. - Constitutional no acute distress - Routine HEENT Exam Head: Present: normocephalic Objective Laboratory Results - last 24 hr 04/30/18 04/30/18 05/01/18 07:00 11:51 03:35 WBC 11.8 H RBC 4.30 L Hgb 13.9 Hct 40.6 MCV 94.5 MCH 32.4 MCHC 34.3 RDW 12.5 Plt Count 243 MPV 9.1 Neut % (Auto) 79.1 H Lymph % (Auto) 13.1 [place] % (Auto) 6.4 Eos % (Auto) 0.7 Baso % (Auto) 0.7 Neut # (Auto) 9.3 H Lymph # (Auto) 1.6 [place] # (Auto) 0.8 Eos # (Auto) 0.1 Baso # (Auto) 0.1 WBC Differential . Differential Comment Auto diff final Sodium 143 Potassium 3.9 Chloride 108 H Carbon Dioxide 28.5 Anion Gap 7 BUN 14 Creatinine 0.72 Estimated GFR Greater than 89 Random Glucose 104 Calcium 7.9 L D Total Bilirubin AST ALT Alkaline Phosphatase Total Protein Albumin Nasal Screen MRSA (PCR) Not detected 05/01/18 03:35 WBC RBC Hgb Hct MCV MCH MCHC RDW Plt Count MPV Neut % (Auto) Lymph % (Auto) [place] % (Auto) Eos % (Auto) Baso % (Auto) Neut # (Auto) Lymph # (Auto) [place] # (Auto) Eos # (Auto) Baso # (Auto) WBC Differential Differential Comment Sodium 141 Potassium 4.2 Chloride 108 H Carbon Dioxide 26.4 Anion Gap 7 BUN 15 Creatinine 0.87 Estimated GFR 87 L Random Glucose 87 Calcium 7.9 L Total Bilirubin 0.5 AST 15 ALT 25 Alkaline Phosphatase 87 Total Protein 5.8 L D Albumin 3.0 L D Nasal Screen MRSA (PCR) Review/Management - Diagnosis (1) Hypertensive urgency Code(s): I16.0 - Hypertensive urgency Status: Acute Current Visit: Yes (2) Chronic ischemic right MCA stroke Code(s): I69.30 - Unspecified sequelae of cerebral infarction Status: Acute Current Visit: Yes (3) Cannabis dependence Code(s): F12.20 - Cannabis dependence, uncomplicated Status: Acute Current Visit: No (4) Tobacco dependence Code(s): F17.200 - Nicotine dependence, unspecified, uncomplicated Status: Acute Current Visit: No (5) Cerebellar hemorrhage Code(s): I61.4 - Nontraumatic intracerebral hemorrhage in cerebellum Status: Acute Current Visit: No - Review/Management Plan: symptoms may be related to hypertensive urgency Does not appear to have any new neurologic deficit CT brain scan stable 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 Patient declines at present would suggest repeating in 6-8 weeks with a high left frontal hyperdensity not seen on previous MRI scan Blood pressure control; improved Okay for regular for with telemetry Tobacco cessation Compliance of blood pressure medications Discharge planning Behavioral modification and risk factor reduction. Weight loss, blood pressure control, blood sugar control, lipid control. Exercise No driving until blood pressure control seen in the outpatient setting (5) Cerebellar hemorrhage Qualifiers: Intracerebral hemorrhage etiology: nontraumatic Laterality: left Qualified Code(s): I61.4 - Nontraumatic intracerebral hemorrhage in cerebellum
[2018-05-01] MEDS: Senna/Docusate Sodium 8.6/50 MG Tablet PO SCH ×2 (08:38→21:36)
[2018-05-01] MEDS: Budesonide-Formoterol 80/4.5 MCG 6.9 GM Inhaler INH SCH ×2 (08:38→21:38)
--- NOTE | 2018-05-01 10:44 | P.PNNS ---
Subjective Interval history: head CT and exam stable Physical Exam Vital signs: Vital Signs 04/30/18 10:53 04/30/18 11:00 04/30/18 11:08 Temperature Pulse Rate 78 84 79 Respiratory Rate 40 H 20 19 Blood Pressure 131/61 121/67 Pulse Oximetry 98 98 98 04/30/18 11:23 04/30/18 11:38 04/30/18 11:53 Temperature Pulse Rate 78 75 81 Respiratory Rate 20 19 23 Blood Pressure 126/71 123/70 117/72 Pulse Oximetry 98 98 97 04/30/18 12:00 04/30/18 12:08 04/30/18 12:23 Temperature 97.6 F Pulse Rate 75 74 74 Respiratory Rate 15 18 19 Blood Pressure 125/77 121/74 Pulse Oximetry 98 97 97 04/30/18 12:38 04/30/18 12:53 04/30/18 13:00 Temperature Pulse Rate 76 80 78 Respiratory Rate 17 18 24 Blood Pressure 118/73 122/78 Pulse Oximetry 97 98 98 04/30/18 13:08 04/30/18 13:23 04/30/18 13:38 Temperature Pulse Rate 80 72 73 Respiratory Rate 21 29 H 17 Blood Pressure 121/76 128/70 127/72 Pulse Oximetry 98 98 97 04/30/18 13:53 04/30/18 14:00 04/30/18 14:08 Temperature Pulse Rate 81 77 76 Respiratory Rate 19 20 19 Blood Pressure 137/78 116/69 Pulse Oximetry 95 94 L 94 L 04/30/18 14:23 04/30/18 14:38 04/30/18 14:53 Temperature Pulse Rate 77 83 78 Respiratory Rate 20 21 19 Blood Pressure 109/66 115/68 109/66 Pulse Oximetry 91 L 89 L 84 L 04/30/18 15:00 04/30/18 15:08 04/30/18 15:23 Temperature Pulse Rate 79 85 76 Respiratory Rate 19 18 20 Blood Pressure 105/65 103/65 Pulse Oximetry 84 L 88 L 94 L 04/30/18 15:38 04/30/18 15:53 04/30/18 16:00 Temperature 97.8 F Pulse Rate 77 80 75 Respiratory Rate 20 19 20 Blood Pressure 115/69 111/68 126/78 Pulse Oximetry 92 L 96 04/30/18 16:08 04/30/18 16:23 04/30/18 16:38 Temperature Pulse Rate 75 71 71 Respiratory Rate 21 20 21 Blood Pressure 110/68 116/72 125/76 Pulse Oximetry 04/30/18 16:53 04/30/18 17:00 04/30/18 17:08 Temperature Pulse Rate 72 71 70 Respiratory Rate 21 19 18 Blood Pressure 129/77 126/78 Pulse Oximetry 96 96 97 04/30/18 17:23 04/30/18 17:38 04/30/18 17:53 Temperature Pulse Rate 71 71 75 Respiratory Rate 19 19 20 Blood Pressure 130/80 137/83 133/85 Pulse Oximetry 98 98 98 04/30/18 18:00 04/30/18 18:08 04/30/18 18:23 Temperature Pulse Rate 75 76 80 Respiratory Rate 20 20 20 Blood Pressure 157/91 H 144/83 H Pulse Oximetry 96 96 97 04/30/18 18:38 04/30/18 18:53 04/30/18 19:00 Temperature Pulse Rate 80 80 81 Respiratory Rate 19 19 20 Blood Pressure 143/84 H 123/69 Pulse Oximetry 95 93 L 96 04/30/18 23:23 04/30/18 23:38 04/30/18 23:50 Temperature Pulse Rate 74 Respiratory Rate 22 Blood Pressure 158/92 H 143/87 H Pulse Oximetry 97 97 04/30/18 23:53 05/01/18 00:00 05/01/18 00:08 Temperature 98.6 F Pulse Rate 72 74 75 Respiratory Rate 23 17 22 Blood Pressure 129/78 142/85 H Pulse Oximetry 97 97 97 05/01/18 00:23 05/01/18 00:38 05/01/18 00:53 Temperature Pulse Rate 73 74 74 Respiratory Rate 25 H 20 20 Blood Pressure 128/76 120/69 127/71 Pulse Oximetry 97 97 98 05/01/18 01:00 05/01/18 01:08 05/01/18 01:23 Temperature Pulse Rate 74 75 73 Respiratory Rate 20 18 20 Blood Pressure 113/70 129/68 Pulse Oximetry 98 97 97 05/01/18 01:38 05/01/18 01:53 05/01/18 02:00 Temperature Pulse Rate 75 76 75 Respiratory Rate 19 27 H 28 H Blood Pressure 153/69 H 147/69 H Pulse Oximetry 97 98 98 05/01/18 02:08 05/01/18 02:23 05/01/18 02:38 Temperature Pulse Rate 79 76 77 Respiratory Rate 17 19 19 Blood Pressure 126/64 120/56 L 118/59 L Pulse Oximetry 98 98 98 05/01/18 02:53 05/01/18 03:00 05/01/18 03:08 Temperature Pulse Rate 77 82 75 Respiratory Rate 19 20 20 Blood Pressure 119/71 116/68 Pulse Oximetry 98 98 98 05/01/18 03:23 05/01/18 03:38 05/01/18 03:53 Temperature Pulse Rate 74 77 75 Respiratory Rate 25 H 16 14 Blood Pressure 113/56 L 126/70 121/72 Pulse Oximetry 98 96 96 05/01/18 04:00 05/01/18 04:08 05/01/18 04:23 Temperature Pulse Rate 73 73 74 Respiratory Rate 16 19 20 Blood Pressure 123/67 125/70 Pulse Oximetry 99 99 98 05/01/18 04:38 05/01/18 04:53 05/01/18 05:00 Temperature Pulse Rate 77 81 75 Respiratory Rate 19 15 20 Blood Pressure 123/66 139/87 Pulse Oximetry 97 97 97 05/01/18 05:08 05/01/18 05:23 05/01/18 05:53 Temperature Pulse Rate 77 73 74 Respiratory Rate 20 20 18 Blood Pressure 141/91 H 133/79 124/76 Pulse Oximetry 97 95 94 L 05/01/18 06:00 05/01/18 06:08 05/01/18 06:23 Temperature Pulse Rate 75 79 76 Respiratory Rate 17 30 H 17 Blood Pressure 118/74 112/74 Pulse Oximetry 94 L 93 L 93 L 05/01/18 06:38 05/01/18 06:53 05/01/18 07:00 Temperature Pulse Rate 76 74 72 Respiratory Rate 19 19 18 Blood Pressure 126/75 118/73 Pulse Oximetry 91 L 93 L 95 05/01/18 07:08 05/01/18 07:23 05/01/18 07:38 Temperature Pulse Rate 71 73 75 Respiratory Rate 19 18 18 Blood Pressure 120/75 124/72 142/83 H Pulse Oximetry 95 96 05/01/18 07:53 05/01/18 08:00 05/01/18 08:08 Temperature 98.1 F Pulse Rate 81 75 76 Respiratory Rate 21 19 19 Blood Pressure 160/87 H 141/82 H Pulse Oximetry 96 95 95 05/01/18 08:23 05/01/18 08:38 05/01/18 08:53 Temperature Pulse Rate 78 81 82 Respiratory Rate 20 20 24 Blood Pressure 142/87 H 145/89 H 150/71 H Pulse Oximetry 94 L 95 95 05/01/18 09:00 05/01/18 09:08 05/01/18 09:23 Temperature Pulse Rate 75 78 79 Respiratory Rate 20 17 21 Blood Pressure 133/75 144/66 H Pulse Oximetry 95 96 95 05/01/18 09:29 05/01/18 09:38 Temperature Pulse Rate 84 Respiratory Rate 22 Blood Pressure 150/71 H Pulse Oximetry 96 96 Intake & Output 04/30/18 05/01/18 05/01/18 18:59 06:59 18:59 Intake Total 1500 / 1500 300 / 300 500 / 500 Output Total 1800 / 1800 500 / 500 Balance -300 / -300 -200 / -200 500 / 500 Intake: IV 1020 / 1020 500 / 500 Cleviprex Inj 25 mg In 50 ml @ 20 / 20 1 MG/HR 2 mls/hr IV.CONT TITRATE PRN Rx#:[id number] NS Inj 1,000 ML @ 84 mls/hr IV. 1000 / 1000 CONT .[id number] CONSTANTIN Rx#:[id number] Oral 480 / 480 300 / 300 Output: Urine 1800 / 1800 500 / 500 Other: # Voids 5 2 Narrative: A&O x 3 CN II-XII intact Motor 5/5 UE/LE Assessment and Plan - Plan 72yoM with stable exam and findings of questionable new 4 mm hypodense lesion in the posterior left frontal lobe. The left cerebellar lesion is stable and did not appear to be an acute stroke based on the MRI. Otherwise chronic encephalomalacia of the right temporal lobe posteriorly. Neurosurgery will sign off at this time. Please call with questions.
[2018-05-01 13:09] VITALS: RESP 20
[2018-05-02] MEDS: Chlorhexidine Gluconate 2% 1 Pack (2 Cloths) TOPICAL SCH (04:24)
[2018-05-02] MEDS: Budesonide-Formoterol 80/4.5 MCG 6.9 GM Inhaler INH SCH (09:33)
[2018-05-02] MEDS: Senna/Docusate Sodium 8.6/50 MG Tablet PO SCH (09:33)
--- NOTE | 2018-05-02 10:56 | P.PNIM ---
Subjective Interval history: in no acute distress. looks comfortable. no headache, nausea. no new complaints. Physical Exam Vital signs: Last Vital Signs Temp 98.4 F 05/02/18 08:00 Pulse 75 05/02/18 08:00 Resp 20 05/02/18 08:00 BP 120/79 05/02/18 08:00 Pulse Ox 94 L 05/02/18 08:00 Intake & Output 04/30/18 05/01/18 05/02/18 05/03/18 06:59 06:59 06:59 06:59 Intake Total 2000 / 2000 1800 / 1800 800 / 800 Output Total 150 / 150 2300 / 2300 Balance 1850 / 1850 -500 / -500 800 / 800 Weight 69.5 kg 68.7 kg Constitutional no acute distress Routine Respiratory Exam Present CTA bilaterally Routine Cardiovascular Exam Present RRR Routine Abdominal Exam Present soft Routine Extremities Exam Comments: no pedal edema. Routine Neurological Exam Present alert and oriented X3 Results Labs CBC & Chem 7: 05/01/18 03:35 05/01/18 03:35 Procedures Procedures: none. Assessment and Plan (1) Hypertensive urgency: Code(s): I16.0 - Hypertensive urgency Status: Acute (2) Chronic ischemic right MCA stroke: Code(s): I69.30 - Unspecified sequelae of cerebral infarction Status: Acute (3) Cannabis dependence: Code(s): F12.20 - Cannabis dependence, uncomplicated Status: Acute (4) Tobacco dependence: Code(s): F17.200 - Nicotine dependence, unspecified, uncomplicated Status: Acute (5) Cerebellar hemorrhage: Code(s): I61.4 - Nontraumatic intracerebral hemorrhage in cerebellum Status: Acute Plan A/P Hypertensive emergency with New left frontal intracerebral hemorrhage/ Cerebellar hemorrhage(old) CT head repeated and stable. continue with BP control with Coreg and follow the BP trend closely- neurosurgery signed off. carotid doppler with no significant stenosis- echo with EF 55% COPD/Tobacco use/Marijuana use continue Symbicort- - counselled on smoking cessation DVT prophylaxis with SCD's- no chemical prophylaxis due to cerebral bleed. [facility]. f/u; pcp and neurology. d/w the patient. Progress Note: Quality VTE Deep Vein Thrombosis/Pulmonary Embolism Present on Admission: No _ (1) Cerebellar hemorrhage Qualifiers: Intracerebral hemorrhage etiology: nontraumatic Laterality: left Qualified Code(s): I61.4 - Nontraumatic intracerebral hemorrhage in cerebellum
--- NOTE | 2018-05-02 10:58 | P.DS ---
DS: Providers Date of admission: 04/30/18 04:04 Primary care physician: No Primary Care Physician Consults: 04/30/18 03:54 Consult to Neurosurgery Routine Consulting Provider: Zia Powell Reason for Consultation: ICH Notified:: Service Spoke with:: CATHY Date Notified:: 04/30/18 Time Notified:: 04:26 Ordering Provider: ISSA 04/30/18 04:22 HUB Only Consult Order Routine Consulting Provider: Rosario Ponce 04/30/18 05:07 Consult to Neurology Routine Consulting Provider: Juan Arriola Reason for Consultation: abnormal CT Head Notified:: Service Spoke with:: nick Date Notified:: 04/30/18 Time Notified:: 05:53 Ordering Provider: ABDULLAHI 04/30/18 18:23 Consult to Hospitalist Routine Consulting Provider: Renuka Garcia Reason for Consultation: Continuation of medical management on 05/01 Notified:: Service Spoke with:: eden Date Notified:: 04/30/18 Time Notified:: 18:27 Ordering Provider: TATIANA Brief History from admission: 72 yo M c/o nausea and vomiting. + Dyspnea prior to arrival. Chest heaviness noted prior to arrival. + Tobacco and marijuana prior to arrival at ED. Pt denies EtOH. No headache. No fever/chills. Pt discharged from [facility] [place] 1 week prior following admission for multiple complaints including n/v, dizziness and headache. Imaging of the brain ultimately revealed hyperdense cerebellar lesion c/w hemorrhage. Patient was evaluated by neurosurgery, blood pressure was controlled and he was subsequently recommended conservative management and discharged home. Pt reports doing well at home until 04/29 just a few hours prior to ED arrival with his symptoms having been preceded by eating a bowl of chicken soup. On evaluation in the ER patient was hypertensive. Head CT revealed a new small hyperdense lesion in the left frontal lobe suspicious for hemorrhage which was not present on his previous imaging. Dr. Powell from neurosurgery was consulted and requested admission by critical care medicine service. Patient was accepted for admission by critical care medicine service. When I evaluated the patient he was laying in bed appears anxious and complaining of chest pressure. His systolic blood pressure was 190s for which labetalol 20 mg IV stat was ordered. Patient otherwise awake and alert moving all 4 extremities however appearing anxious at the time of my evaluation. DS: Diagnosis Discharge Diagnosis (1) Hypertensive urgency: Status: Acute (2) Chronic ischemic right MCA stroke: Status: Acute (3) Cannabis dependence: Status: Acute (4) Tobacco dependence: Status: Acute (5) Cerebellar hemorrhage: Status: Acute DS: Summary Hypertensive emergency with New left frontal intracerebral hemorrhage/ Cerebellar hemorrhage(old) CT head repeated and stable. continue with BP control with Coreg and follow the BP trend closely- neurosurgery signed off. carotid doppler with no significant stenosis- echo with EF 55% COPD/Tobacco use/Marijuana use continue Symbicort- - counselled on smoking cessation Time Spent with Patient Total time spent providing and/or coordinating discharge services: Less than 30 minutes Quality: VTE Deep Vein Thrombosis/Pulmonary Embolism Present on Admission: No Exam Narrative Exam Narrative: in no acute distress. awake, alert and fully oriented. bilateral air entry present. abdomen is soft and non-tender. no pedal edema. Results Procedures completed during hospitalization: none. Impressions ITS Impressions Carotid Doppler Study 04/30/18 09:24 CONCLUSION: Negative examination for a hemodynamically significant carotid stenosis. Umberto Cummins MD FACR Head CT 05/01/18 05:00 CONCLUSION: 1. Stable areas of increased density in the left side of the brain involving the cerebrum and one in the cerebellum unchanged from the previous day's study. I asked to review the study back in November 2011 which has some areas of intraparenchymal hemorrhage and subarachnoid hemorrhage. The area in the high left frontoparietal region may have been present. No definite acute new lesion is identified . Discharge Plan Discharge Disposition Patient Disposition: Discharge Home Discharge Condition Condition: Fair Discharge Order Discharge Orders: Discharge Order (Routine); Ordered 05/02/18 Ordered By: Rosanne Whyte Physicians Team Primary Care Provider: Primary Care Physici,No Attending Provider: Rosanne Whyte Other Providers: Rosario Ponce ; Zia Powell ; Juan Arriola Rxs /Orders / Referrals /Forms Prescriptions: Continue carvedilol [Coreg] 3.125 mg Tablet 3.125 mg PO BID Qty: 60 RF: 0 budesonide-formoterol [Symbicort] 80-4.5 mcg/actuation Hfa Aerosol Inhaler 2 puff INH BID Qty: 1 RF: 0 guaifenesin [Mucinex] 600 mg Tablet Extended Release 12hr 600 mg PO BID Qty: 14 RF: 0 albuterol sulfate 90 mcg/actuation aerosol powdr breath activated 2 inh INHALATION Q4-6H PRN (Reason: shortness of breath or wheezing) 30 Days Qty: 1 RF: 0 Referrals: Primary Care PhysiciNo [Primary Care Provider] - See Instructions Discharge Instructions Patient Printed Instructions: Chest Pain (ED), Self Care Measures After a Stroke (DC), Hypertensive Crisis (DC) Status ED Status: Left Department Discharge Information Discharge Date/Time: 05/02/18 12:51
--- NOTE | 2018-05-02 11:06 | P.PNNEU ---
Subjective Subjective Comments: No cp, no dyspnea, no breaux, no focal weakness, no vision loss. Slept well feels well Active Medications: Active Medications Al Hydroxide/Mg Hydroxide (Milk Of Magnesia Liq) 30 ml PO Q12H PRN PRN Reason: Mild Constipation Albuterol (Albuterol Neb (Prn)) 1.25 mg NEB Q4HR NEB PRN PRN Reason: SHORTNESS OF BREATH Bisacodyl (Dulcolax Supp) 10 mg RECTAL DAILY PRN PRN Reason: SEVERE CONSITIPATION Budesonide/Formoterol Fumarate (Symbicort 80/4.5 Mcg Inh) 2 puff INH BID [facility] Last Admin: 05/02/18 09:33 Dose: 2 puff Carvedilol (Coreg) 3.125 mg PO BID [facility] Last Admin: 05/02/18 09:26 Dose: 3.125 mg Chlorhexidine Gluconate (Chlorhexidine 2% Cloth) 3 pack TOPICAL DAILY@0400 [facility] Stop: 05/06/18 03:59 Last Admin: 05/02/18 04:24 Dose: Not Given Chlorhexidine Gluconate (Chlorhexidine 2% Cloth) 3 pack TOPICAL DAILY@0400 PRN PRN Reason: Extra cloth needed Stop: 05/06/18 03:59 Labetalol HCl (Trandate Inj) 20 mg IV.PUSH Q2H PRN PRN Reason: SBP > 160 Last Admin: 04/30/18 05:20 Dose: 20 mg Lactulose (Lactulose Liq) 30 ml PO DAILY PRN PRN Reason: SEVERE CONSITIPATION Senna/Docusate Sodium (Leisa-Colace) 1 tab PO BID [facility] Last Admin: 05/02/18 09:33 Dose: Not Given Sennosides (Senokot) 17.2 mg PO Q12H PRN PRN Reason: Moderate Constipation Sodium Chloride (Ns Flush) 2 ml IV.FLUSH BID [facility] Last Admin: 05/02/18 09:32 Dose: 2 ml Sodium Chloride (Ns Flush) 2 ml IV.FLUSH PRN PRN PRN Reason: FLUSH AFTER USING IV ACCESS Allergies/Adverse Reactions: Allergies Allergy/AdvReac Type Severity Reaction Status Date / Time No Known Allergies Allergy Verified 04/20/18 02:45 Review of Systems All other systems reviewed negative except as stated in HPI Physical Exam Vital signs: Vital Signs 05/01/18 12:00 05/01/18 12:04 05/01/18 16:00 Temperature 97.8 F 97.2 F L Pulse Rate 75 74 80 Respiratory Rate 20 20 20 Blood Pressure 122/69 122/69 125/72 Pulse Oximetry 95 95 99 05/01/18 18:12 05/01/18 20:00 05/02/18 00:00 Temperature 98.3 F 99 F Pulse Rate 82 Respiratory Rate 20 20 Blood Pressure 138/68 124/70 Pulse Oximetry 95 94 L 94 L 05/02/18 02:45 05/02/18 04:00 05/02/18 08:00 Temperature 99.3 F 98.4 F Pulse Rate 81 75 Respiratory Rate 18 20 20 Blood Pressure 140/68 120/79 Pulse Oximetry 96 94 L Intake & Output 05/01/18 05/02/18 05/02/18 18:59 06:59 18:59 Intake Total 800 / 800 Balance 800 / 800 Weight 68.7 kg Intake: IV 500 / 500 Oral 300 / 300 Other: # Voids 2 4 Date of Last Bowel Movement 05/02/18 # Bowel Movements 2 Narrative: GENERAL: in NAD, sitting up in his bed looks well, thin body habitus SKIN: Warm and dry. HEAD: Atraumatic. Normocephalic. EYES: Pupils equal and round. No scleral icterus. ENT: No nasal bleeding or discharge. Mucous membranes pink and moist. NECK: Trachea midline. No JVD. Atrophy neck and sternocleidomastoid muscles history of previous radiation treatment CARDIOVASCULAR: Regular rate and rhythm. RESPIRATORY: No accessory muscle use. GASTROINTESTINAL: Abdomen soft, non-tender, nondistended. NEUROLOGICAL: Awake and alert. Oriented x3, no aphasia, fluent articulate, No facial asymmetry, eomi, VFF, No drift, Motor grossly within normal limits. Five out of 5 muscle strength in the arms and legs. Reflex symmetric no neglect gait not assessed secondary fall risk PSYCHIATRIC: Appropriate mood and affect; insight and judgment normal. - Constitutional no acute distress - Routine HEENT Exam Head: Present: normocephalic Review/Management - Diagnosis (1) Hypertensive urgency Code(s): I16.0 - Hypertensive urgency Status: Acute Current Visit: Yes (2) Chronic ischemic right MCA stroke Code(s): I69.30 - Unspecified sequelae of cerebral infarction Status: Acute Current Visit: Yes (3) Cannabis dependence Code(s): F12.20 - Cannabis dependence, uncomplicated Status: Acute Current Visit: No (4) Tobacco dependence Code(s): F17.200 - Nicotine dependence, unspecified, uncomplicated Status: Acute Current Visit: No (5) Cerebellar hemorrhage Code(s): I61.4 - Nontraumatic intracerebral hemorrhage in cerebellum Status: Acute Current Visit: No - Review/Management Plan: symptoms may be related to hypertensive urgency Does not appear to have any new neurologic deficit CT brain scan stable 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 Patient declines at present would suggest repeating in 6-8 weeks with a high left frontal hyperdensity not seen on previous MRI scan Blood pressure excellent Tobacco cessation Compliance of blood pressure medications Discharge planning outpatient follow-up with primary care physician in our us in 1-2 weeks Behavioral modification and risk factor reduction. Weight loss, blood pressure control, blood sugar control, lipid control. Exercise No driving until blood pressure control seen in the outpatient setting (5) Cerebellar hemorrhage Qualifiers: Intracerebral hemorrhage etiology: nontraumatic Laterality: left Qualified Code(s): I61.4 - Nontraumatic intracerebral hemorrhage in cerebellum
[2018-05-02 12:44] VITALS: BP 132/77; PULSE 81; TEMP 97.4; O2SAT 97
== END 2018-05-02 12:51 | disposition home or self-care (01) ==
LOC: NEPE 01:27 → NEDA 04:04 → N03 05:15 → N05 05-01 13:01
PROVIDERS: ADMIT Internal Medicine; ATTEND Internal Medicine
DX: F12.20 Cannabis dependence, uncomplicated; I63.511 Cerebral infarction due to unspecified occlusion or stenosis of right middle cerebral artery; I49.3 Ventricular premature depolarization; I69.398 Other sequelae of cerebral infarction; R07.89 Other chest pain; Z87.820 Personal history of traumatic brain injury; J44.9 Chronic obstructive pulmonary disease, unspecified; I10 Essential (primary) hypertension; F17.210 Nicotine dependence, cigarettes, uncomplicated; I61.1 Nontraumatic intracerebral hemorrhage in hemisphere, cortical; I16.1 Hypertensive emergency; R11.2 Nausea with vomiting, unspecified; G93.89 Other specified disorders of brain